=== PATIENT | female | born 1965 | race Caucasian/White ===

== ENCOUNTER 2019-07-10 22:21 | Emergency (ER) | payer BC, SELFPAY ==
--- NOTE | 2019-07-10 22:28 | ED.ABDPAIN ---
HPI - Abdominal Pain General Chief Complaint: Abdominal Pain Stated Complaint: Abdominal pain Time Seen by Provider: 07/10/19 22:28 Source: patient Mode of arrival: ambulatory Limitations: no limitations History of Present Illness HPI narrative: 53-year-old woman comes in today complaining of fairly constant epigastric pain that been present since yesterday. She states that she ate is recently is 2 hours ago and has tried several at asses and even mustard to alleviate her symptoms but nothing seems to alleviate or exacerbate the symptoms. She has had no shortness of breath but states that she sometimes feels sweaty. She has also had loose stools over the last couple of days. MD elicited complaint: abdominal pain Pertinent past history: none Onset (ago): day(s) (1) Pain Consistency: constant Location: epigastric Severity: severe Quality: sharp Radiation: none Migration to: no migration Exacerbating factors: nothing Relieving factors: nothing Associated symptoms: diarrhea Treatments prior to arrival: antacids Related Data Home Medications Medication Instructions Recorded Confirmed citalopram 20 mg PO DAILY 07/10/19 07/10/19 metformin 1,000 mg PO BID 07/10/19 07/10/19 Allergies Allergy/AdvReac Type Severity Reaction Status Date / Time No Known Allergies Allergy Mild Unverified 01/18/08 06:54 Review of Systems Constitutional: Constitutional: Denies chills, Denies fever(s) and Denies weakness Eyes: Eyes: Denies change in vision and Denies photophobia ENT: Denies dysphagia, Denies nasal congestion and Denies sore throat Cardiovascular: Cardiovascular: Denies chest pain, Denies rapid heart rate, Denies radiating jaw, neck or arm pain and Denies slow heart rate Respiratory: Respiratory: Denies cough, Denies dyspnea and Denies wheezing Gastrointestinal: Gastrointestinal: Reports as per HPI, Reports abdominal pain, Denies bloating, Denies constipation, Reports diarrhea, Reports nausea and Denies vomiting Musculoskeletal: Musculoskeletal: Denies myalgias, Denies arthralgias, Denies joint swelling and Denies muscle cramps Integumentary/Breasts: Skin/Breast: Denies pruritus, Denies erythema and Denies rash Neurologic: Denies vertigo, Denies dizziness and Denies syncope Psychiatric: Psychiatric: Denies anxiety and Denies depression Endocrine: Endocrine: Denies polydipsia and Denies polyuria Hematologic/Lymphatic: Hematologic/Lymphatic: Denies easy bleeding and Denies easy bruising Allergic/Immunologic: Allergic/Immunologic: Denies lip swelling and Denies wheezing PMF Past Medical History Medical History Anxiety Surgical History Surgical History History of bladder suspension procedure S/P cholecystectomy Social History Social History Smoking status: Never smoker Alcohol intake: former Substance use: never Other substance usage details: took CBD pills recently to help her sleep Living arrangements: with family Gender identity (if verbalized by the patient): Female Exam Const: General: healthy appearing and alert Orientation/consciousness: patient oriented x3 Limitations: no limitations Other: [id number] acute distress. HENMT: Ears: external ears normal, TM's normal bilaterally and EAC's normal Mouth: Yes Normal oral and palatal mucosa present and Yes moist mucous membranes Throat: posterior oropharynx normal Eyes: Conjunctivae: conjunctivae normal EOM: EOMs intact bilaterally Resp: Effort & Inspection: normal respiratory effort and not labored Auscultation: clear to auscultation bilaterally, no rales, no rhonchi and no wheezes Cardio: Rate: regular rate Rhythm: regular rhythm Heart sounds: no murmurs GI: Inspection: non-distended GI Palp: Yes Soft to palpation, Yes Tenderness to palpation present (GI) ( M
--- NOTE | 2019-07-10 22:39 | ECG_ITS ---
Measurements Intervals [place] Rate: 68 P: 64 WI: 182 QRS: 26 QRSD: 102 T: 39 QT: 411 QTc: 438 Interpretive Statements SINUS RHYTHM VENTRICULAR PREMATURE COMPLEX BORDERLINE ECG Electronically Signed On 07-11-2019 8:15:38 BOX PRINTER by Zachary Ross D.O.
[2019-07-10 22:40] VITALS: BP 137/79; PULSE 75; RESP 18; TEMP 36.7; O2SAT 96
--- NOTE | 2019-07-10 22:47 | PC.NURSE ---
Pt states she is taking Metformin 1000mg BID for weight loss, prescribed by her PMD Dr Pacheco. States has been taking the medication x1 month.
[2019-07-10] MEDS: SODIUM CHLORIDE 0.9% IV 500 ML 999 ML IV CONT (23:07)
[2019-07-10] MEDS: ONDANSETRON INJ 4 MG/2 ML VIAL IV PUSH (23:08)
[2019-07-10] MEDS: PANTOPRAZOLE SODIUM IV 40 MG VIAL IV PUSH (23:08)
[2019-07-10 23:13] LABS: Add Urine Microscopic? NO; Appearance Urine Clear (Clear); Bilirubin Urine Negative (Negative); Blood Urine Negative (Negative); Color Urine Yellow (Yellow); Glucose Urine UA Negative (Negative); Ketones Urine Negative (Negative); Leukocyte Esterase Ur Negative LEU/UL (Negative); Nitrate Urine Negative (Negative); Protein Urine Negative (Negative); Specific Grav Ur 1.015 (1.010-1.020); Urobilinogen Urine 0.2 mg/dL (0.2-1.0); pH Urine 7.5 (5.0-8.0)
[2019-07-10 23:25] LABS: Basophils Absolute Auto 0.03 K/mm3 (0.00-0.10); Basophils Percent Auto 0.3 % (0.0-1.0); Eosinophils Absolute Auto 0.16 K/mm3 (0.02-0.50); Eosinophils Percent Auto 1.9 % (1.0-6.0); Hematocrit 40.9 % (35.0-49.0); Hemoglobin 13.6 g/dL (12.0-15.0); Immature Granulocyte Absolute 0.02 K/mm3 (0.00-0.00); Immature Granulocyte Percent A 0.2 % (0.0-0.0); Lymphocytes Absolute Auto 2.52 K/mm3 (1.10-4.50); Lymphocytes Percent Auto 29.3 % (18.0-42.0); Mean Corpuscular HGB Conc 33.3 g/dL (32.0-36.0); Mean Corpuscular Hemoglobin 29.2 pg (27.0-31.0); Mean Corpuscular Volume 87.8 fL (78.0-102.0); Monocytes Absolute Auto 0.85 K/mm3 (0.10-0.90); Monocytes Percent Auto 9.9 % (2.0-11.0); Neutrophils Percent Auto 58.4 % (50.0-70.0); Partial Thromboplastin Time 25.2 SEC (22.3-31.6); Platelet Count Result 293 K/mm3 (150-420); Prothrombin Time 10.7 Seconds (9.64-11.0); Red Blood Count 4.66 M/mm3 (4.20-5.40); Red Cell Distribution Width 13.9 % (11.6-14.4); White Blood Count 8.6 K/mm3 (4.8-10.8)
[2019-07-10 23:30] LABS: Alanine Aminotransferase 32 U/L (14-59); Albumin Level 3.5 g/dL (3.4-5.0); Alkaline Phosphatase 109 U/L (46-116); Anion Gap 7.5 mmol/L (7-16); Aspartate Amino Transferase 22 U/L (15-37); Bilirubin,Total 0.4 mg/dL (0.00-1.00); Blood Urea Nitrogen 9 mg/dL (7-18); Calcium 8.7 mg/dL (8.5-10.1); Carbon Dioxide 33 mmol/L (21-32); Chloride 103 mmol/L (98-108); Estimated CRCL calculation 88 ml/min; Estimated Glomerular Filt Rate > 60; Glucose 97 mg/dL (70-99); Lipase 147 U/L (73-393); Osmolality Calculated 288 mOsm/kg (285-295); Potassium 3.5 mmol/L (3.5-5.1); Sodium 140 mmol/L (136-145); Total Protein 7.3 g/dL (6.4-8.2)
[2019-07-10 23:32] LABS: Troponin I < 0.02 ng/mL (0.00-0.056)
[2019-07-10 23:38] LABS: Lactic Acid Reflex 0.8 mmol/L (0.4-2.0)
--- NOTE | 2019-07-10 23:46 | PC.NURSE ---
Dr Brown at bedside.
[2019-07-10 23:58] VITALS: BP 117/70; PULSE 75; RESP 20; O2SAT 98
== END 2019-07-11 00:08 | disposition home or self-care (01) ==
PROVIDERS: Emergency Provider Emergency Medicine; PCP Family Medicine
DX: R10.13 Epigastric pain (principal)
CPT/HCPCS: 36415; 80053; 81003; 83605; 83690; 84484; 85025; 85610; 85730; 93005; 96361; 96374; 96375; 99284; A9270; C9113; J2405; J7040

== ENCOUNTER 2019-07-11 10:47 | Outpatient (CLI) | payer BC, SELFPAY ==
--- NOTE | ~2019-07-11 | US_ITS ---
EXAMINATION: US right upper quadrant EXAM DATE: 07/11/2019 11:47 INDICATION: Epigastric pain since Thursday. Cholecystectomy. TECHNIQUE: Multiple grayscale and Doppler images of the abdomen right upper quadrant were obtained (b y a technologist who performed the scan) and subsequently reviewed. Comparison is made to prior exami nation from 03/06/2011. FINDINGS: The pancreatic head and body are normal in appearance. The pancreatic tail is not visualized. The l iver has normal echogenicity and contour. There are no focal liver lesions identified. There is no evidence of intrahepatic biliary duct dilation. Portal venous flow was seen in the hepatopedal, nor mal direction and has normal Doppler waveform. No right-sided hydronephrosis. Common bile duct measures 4 mm, which is normal. The gallbladder fossa demonstrates small tubular st ructure, probably mildly dilated cystic duct remnant without evidence of choledocholithiasis. IMPRESSION: Small cystic tubular structure in gallbladder fossa probably mildly dilated cystic duct r emnant. Reviewed, dictated and finalized at location A. GE OPENER IMPRESSION: Small cystic tubular structure in gallbladder fossa probably mildly dilated cystic duct remnant.
== END 2019-07-11 10:48 | disposition home or self-care (01) ==
LOC: CHSIMG 10:49
PROVIDERS: PCP Family Medicine; Visit Provider Emergency Medicine
DX: R10.13 Epigastric pain (principal)
CPT/HCPCS: 76705

== ENCOUNTER 2021-07-15 15:04 | Outpatient (CLI) | payer BC, SELFPAY ==
--- NOTE | ~2021-07-15 | XR_ITS ---
XR elbow LT min 3V DATE: 07/15/2021 15:33 INDICATION: Posterior left elbow pain for 3 months after fall TECHNIQUE: 5 views COMPARISON: None FINDINGS: No fracture or dislocation or joint effusion. No periosteal reaction or bone destruction. IMPRESSION: No fracture or dislocation or joint effusion Reviewed, dictated and finalized at location A. ERVATION OFFICER
== END 2021-07-15 15:05 | disposition home or self-care (01) ==
PROVIDERS: PCP Family Medicine; Visit Provider Family Medicine
DX: M25.522 Pain in left elbow (principal)
CPT/HCPCS: 73080

== ENCOUNTER 2021-08-30 10:58 | Outpatient (CLI) | payer BC, SELFPAY ==
--- NOTE | ~2021-08-30 | XR_ITS ---
EXAMINATION: XR lumbar spine 2-3V EXAM DATE: 08/30/2021 11:25 INDICATION: Lesion Of Sciatic Nerve, LBP X2.5 weeks Rt Sided. TECHNIQUE: Lumber spine frontal, lateral, lateral L5-S1 projections for interpretation. Comparison is made to prior examination from 02/20/2014. FINDINGS: There is moderate disc disease L5-S1. Mild to moderate disc disease L-1-2 and L2-3, mild a t the L3-L5 levels. There is moderate lumbar facet arthropathy. There is 3 mm retrolisthesis L5 on S1 . The vertebral bodies are otherwise aligned. There are cholecystectomy clips. Sacrum, sacroiliac iesha nts, sacral arcuate lines are intact. IMPRESSION: 1. Moderate lumbar facet arthropathy and L5-S1 disc disease. 2. No acute findings. Reviewed, dictated and finalized at location G.
== END 2021-08-30 10:59 | disposition home or self-care (01) ==
LOC: CHSIMG 11:01
PROVIDERS: PCP Family Medicine; Visit Provider Family Medicine
DX: G57.00 Lesion of sciatic nerve, unspecified lower limb (principal)
CPT/HCPCS: 72100

== ENCOUNTER 2022-04-11 11:15 | Outpatient (CLI) | payer BC, SELFPAY ==
--- NOTE | ~2022-04-11 | XR_ITS ---
XR knee LT 3V 04/11/2022 11:55 Indication: Left knee pain Procedure: 4 views left knee Comparison: 02/20/2014 Findings: No fracture, subluxation or dislocation. There is anatomic alignment. No joint effusion. No significant joint space narrowing. No soft tissue abnormality. No foreign bodies. Impression: 1: No significant bone or joint abnormality. Reviewed, dictated and finalized at location A. Impression: 1: No significant bone or joint abnormality.
--- NOTE | ~2022-04-11 | XR_ITS ---
XR knee RT 3V 04/11/2022 11:55 Indication: Knee pain Procedure: 3 views right knee Comparison: No prior studies for comparison. Findings: No fracture, subluxation or dislocation. There is anatomic alignment. No joint effusion. No significant joint space narrowing. No soft tissue abnormality. No foreign bodies. Impression: 1: No significant bone or joint abnormality. Reviewed, dictated and finalized at location A. Impression: 1: No significant bone or joint abnormality.
[2022-04-11 11:43] LABS: Alanine Aminotransferase 19 U/L (14-59); Albumin Level 3.6 g/dL (3.4-5.0); Alkaline Phosphatase 128 U/L (46-116); Anion Gap 5 mmol/L (8-16); Aspartate Amino Transferase 17 U/L (15-37); Bilirubin,Total 0.6 mg/dL (0.00-1.00); Blood Urea Nitrogen 14 mg/dL (7-18); Calcium 8.7 mg/dL (8.5-10.1); Carbon Dioxide 30 mmol/L (21-32); Chloride 106 mmol/L (98-108); Estimated Glomerular Filt Rate > 60; Glucose 93 mg/dL (70-99); Osmolality Calculated 292 mOsm/kg (285-295); Potassium 3.9 mmol/L (3.5-5.1); Sodium 141 mmol/L (136-145); Total Protein 7.6 g/dL (6.4-8.2)
[2022-04-11 13:38] LABS: Basophils Absolute Auto 0.02 K/mm3 (0.00-0.10); Basophils Percent Auto 0.4 % (0.0-1.0); Eosinophils Absolute Auto 0.11 K/mm3 (0.02-0.50); Eosinophils Percent Auto 1.9 % (1.0-6.0); Hematocrit 42.5 % (35.0-49.0); Hemoglobin 13.8 g/dL (12.0-15.0); Immature Granulocyte Absolute 0.01 K/mm3 (0.00-0.00); Immature Granulocyte Percent A 0.2 % (0.0-0.0); Lymphocytes Absolute Auto 1.91 K/mm3 (1.10-4.50); Lymphocytes Percent Auto 33.6 % (18.0-42.0); Mean Corpuscular HGB Conc 32.5 g/dL (32.0-36.0); Mean Corpuscular Hemoglobin 29.2 pg (27.0-31.0); Mean Corpuscular Volume 89.9 fL (78.0-102.0); Mean Platelet Volume 12.2 fl (9.2-11.8); Monocytes Absolute Auto 0.55 K/mm3 (0.10-0.90); Monocytes Percent Auto 9.7 % (2.0-11.0); Neutrophils Absolute Auto 3.1 K/mm3 (1.7-7.2); Neutrophils Percent Auto 54.2 % (50.0-70.0); Platelet Count Result 266 K/mm3 (150-420); Red Blood Count 4.73 M/mm3 (4.20-5.40); Red Cell Distribution Width 15.6 % (11.6-14.4); White Blood Count 5.7 K/mm3 (4.8-10.8)
== END 2022-04-11 11:16 | disposition home or self-care (01) ==
LOC: CHSLAB 11:17
PROVIDERS: PCP Family Medicine; Visit Provider Family Medicine
DX: R53.83 Other fatigue (principal); K21.9 Gastro-esophageal reflux disease without esophagitis; M25.561 Pain in right knee
CPT/HCPCS: 36415; 73562; 80053; 85025

== ENCOUNTER 2024-03-02 15:11 | Outpatient (CLI) | payer OTHER, SELFPAY ==
[2024-03-02 16:40] LABS: Anion Gap 8 mmol/L (4-12); Blood Urea Nitrogen 11 mg/dL (7-18); Carbon Dioxide 31 mmol/L (21-32); Chloride 100 mmol/L (98-108); Estimated Glomerular Filt Rate > 60; Glucose 102 mg/dL (70-99); Osmolality Calculated 287 mOsm/kg (285-295); Potassium 3.8 mmol/L (3.5-5.1); Sodium 139 mmol/L (136-145)
== END 2024-03-02 15:12 | disposition home or self-care (01) ==
PROVIDERS: PCP Family Medicine; Visit Provider Nurse Practitioner Family
DX: Z20.822 Contact with and (suspected) exposure to COVID-19 (principal)
CPT/HCPCS: 36415; 80048

== ENCOUNTER 2024-07-18 16:38 | Outpatient (CLI) | payer OTHER, SELFPAY ==
--- NOTE | ~2024-07-18 | XR_ITS ---
CHEST RADIOGRAPH, PA AND LATERAL CLINICAL HISTORY: COUGH . COMPARISON: 09/20/2014 TECHNIQUE: PA and lateral views of the chest. FINDINGS The cardiomediastinal silhouette is unremarkable. The lungs are clear. Visualized osseous structures and soft tissues are unremarkable. IMPRESSION: No focal infiltrate or effusion. Reviewed, dictated and finalized at location A. H OPERATOR
--- OUTSIDE RECORDS SUMMARY | 2024-07-18 16:42 | XMS_ITS | Referral Summary ---
Author Organization [facility] Address [address] [place] [address] Care Team Providers Care Insulation Mechanic Name Role Phone Unavailable Primary Care Provider Unavailabl e Source Comments [facility],non-owned Affiliates and Associated Physician Practices is amultiple site organization consisting of ambulatory clinics and hospital sitesin [place], [place], [place] and [place]. This disclosure is being madepursuant to the Care Everywhere program and may not contain all information available regarding this patient. Last updated 18.[facility] Allergies No known active allergies Medications * Be aware that medications may not be up to date on this document. Alwaysverify current medications with the patient. Medication Sig Dispensed Refills Start Date End Date Status meloxicam (MOBIC) 15 MG tablet 08/28/2021 Active oxybutynin CR 24hr (DITROPAN-XL) 10 MG tablet Take 10 mg by mouth once daily 08/20/2021 Active cyclobenzaprine (FLEXERIL) 10 MG tablet Take 1 (one) tablet by mouth 3 times daily 45 tablet 1 11/22/2021 Active butalbital-acetaminop hen-caffeine (FIORICET) 50-325-40 MG tablet Take 1 (one) tablet by mouth every 4 hours as needed for Headache 20 tablet 11/22/2021 Active gabapentin (NEURONTIN) 300 MG capsuleIndications:Darlyn mbar radiculopathy Take 1 (one) capsule by mouth 3 times daily 90 capsule 2 12/30/2021 Active Active Problems Problem Noted Date Diagnosed Date Chronic low back pain, unspe cified back pain laterality, unspecified whether sciatica present 11/20/2021 Social History Tobacco Use Types Packs/Day Years Used Date Smoking Tobacco: Never Smokeless Tobacco: Never Alcohol Use Standard Drinks/Week Comments Yes 2 (1 standard drink = 0.6 oz pur e alcohol) OCC 2-3 times a year AUDIT-C Answer Date Recorded Q1: How often do you have a drink containing alc ohol? 2-4 times a month 11/20/2021 Q2: How many drinks containi ng alcohol do you have on a typical day when you are drinking? 1 or 2 11/20/2021 Q3: How often do you have si x or more drinks on one occasion? Never 11/20/2021 Hunger Vital Sign Answer Date Recorded Within the past 12 months, y ou worried that your food would run out before you got the money to buy more. Never true 11/22/19 Within the past 12 months, t he food you bought just didn't last and you didn't have money to get more. Never true 11/21/2021 Sex and Gender Information Value Date Recorded Sex Assigned at Female 09/26/2021 2:13 PM CDT Gender Identity Female 09/26/2021 2:13 PM CDT Sexual Orientation Straight 11/20/2021 4: 39 PM CDT Last Filed Vital Signs Vital Sign Reading Time Taken Comments Blood Pressure 135/84 01/07/2022 2:19 PM CDT Pulse 90 01/07/2022 2:19 PM CDT Temperature 36.8 C (98.2 F) 01/07/2022 2:19 PM CDT Respiratory Rate 16 11/22/2021 12:06 PM CDT Oxygen Saturation 98% 01/07/2022 2:19 PM CDT Inhaled Oxygen Concentration - - Weight 101.2 kg (223 lb) 01/07/2022 2:19 PM CDT Height 180.3 cm (5' 11 ) 01/07/2022 2:19 PM CDT Body Mass Index 31.1 01/07/2022 2:19 PM CDT Functional Status Functional Status Response Date of Assess ment Is person deaf or have serious hearing difficult y? No 11/20/2021 Is person blind or have serious difficulty seein g? No 11/20/2021 Does person have serious dif ficulty walking/climbing stairs? No 11/20/2021 Does person have difficulty dressing/bathing? No 11/20/2021 Does person have difficulty doing errands alone? No 11/20/2021 Cognitive Status Response Date of Assessm ent Does person have difficulty concentrating/remembering/making decisions? No 11/20/2021 Plan of Treatment Not on file Medical Devices Implanted Type Area Salon Manager Device Identifier Shelf Expiration Date Model / Serial / Lot Slnt Dura Duraseal Pg Trilysine Amine 5 Implanted:Qty: 1 on 11/20/2021 by Alexander Lorenzo MD at [facility] N/A: Spine Lumbar Integra [employer] Leydi 03/07/2023 [id number] / / [id number] Graft Tissue Drgn + Bvn Clgn Mtrx 2x2in Implanted:Qty: 1 on 11/20/2021 by Alexander Lorenzo MD at [facility] N/A: Spine Lumbar Integra [employer] 09/05/2024 [id number] / / [id number] Procedures Procedure Name Priority Date/Time Associated Diagnosis Comments BASIC METABOLIC PANEL (CALCIUM TOTAL) STAT 11/22/2021 7:45 AM CDT from Last 3 Months or Most Recently Relevant to Health Maintenance Results * (ABNORMAL) BASIC METABOLIC PANEL (CALCIUM TOTAL) (11/22/2021 7:45 AM CDT) BUN 7 7 - 26 mg/dL 11/22/2021 8:15 AM [facility] Creatinine 0.60 0.56 - 0.96 mg/dL 11/22/2021 8:15 AM [facility] Sodium 141 136 - 145 mmol/L 11/22/2021 8:15 AM [facility] Potassium 3.5 3.5 - 4.5 mmol/L 11/22/2021 8:15 AM [facility] Chloride 103 98 - 107 mmol/L 11/22/2021 8:15 AM [facility] CO2 30(H) 22 - 29 mmol/L 11/22/2021 8:15 AM [facility] Glucose 99 70 - 115 mg/dL 11/22/2021 8:15 [address] [facility] Calcium 8.7 8.4 - 10.2 mg/dL 11/22/2021 8:15 AM [facility] Anion Gap 12 8 - 18 11/22/2021 8:15 AM [facility] BUN/Creatinine Ratio 12 7 - 23 11/22/2021 8:15 AM [facility] Osmolality Calculated 290 270 - 300 mOsm/kg 11/22/2021 8:15 AM [facility] eGFR by CKD-EPI >90 >=90 mL/min/1.7 3 m2 11/22/2021 8:15 AM [facility] Blood BLOOD SPECIMEN / Unknown Lab Venipuncture / Unknown 11/22/2021 7:45 AM CDT 11/22/2021 7:51 AM CDT Alexander Lorenzo MD LAB - CHEMISTRY MARY TAVERAS [facility] Organization Address City/State/ZIP Co de Phone Number [facility] [address] [place] [address], [facility] [phone] from Last 3 Months or Most Recently Relevant to Health Maintenance Advance Directives * Full Code (Latest Code Status on File) Date Activated Date Inactivated Comments 11/20/2021 4:34 PM 11/22/2021 3:37 PM
--- OUTSIDE RECORDS SUMMARY | 2024-07-18 16:42 | XMS_ITS | Clinical Summary ---
Author Organization [facility] Address [address] [place] [address] Phone Care Team Providers Care Car Wash Attendant Automatic Name Role Phone WILLIAM TOLEDO, GENO Primary Care Provider [phone] J CARLOS LANGSTON MD Unavailable [phone] Reason for Visit and Chief Complaint The Chief Complaint is: Referred by Dr. Geno Thomas Sciatic nerve and back pain Plan of Treatment Risk assessment completed and UDS collected for initial pain management visit to determine opioid candidacy and risk. Urine sample sent for confirmation via LCMS when appropriate. - Last Documented On 10/14/2021 12:03PM ; [facility] Referrals To Diagnosis Pain Management [facility] - [address] [place] [address] - Radiculopathy, lumbar region Note: Needs done this week p rior to surgery if possible.Consent for RightTransforaminal Epidural steroid injection at L3-4 and L4-5 under fluorsocopyNo need to hold NSAIDs/ ASA Last Documented On 3 4:52PM ; [facility] Instructions to patient Intervention and counseling on cessation of tobacco use : Patient recieved smoking cessation handout Last Documented On 2 8:23AM ; [facility] Education and Decision Aids were provided during visit for: Pill Count: 45 Hydrocodone 5 /325 Last Documented On 2 9:19AM ; [facility] Assessments Includes: Assessments from this encounter Findings - [M54.9 - Dorsalgia, unspecified] DORSALGIA - Last Documented On 10/14/2021 12:03PM ; [facility] - [M51.26 - Other intervertebral disc displacement, lumbar region] Bulging lumbar disc - Last Documented On 10/14/2021 12:03PM ; [facility] - [M47.26 - Other spondylosis with radiculopathy, lumbar region] Lumbar spondylosis with radiculopathy - Last Documented On 10/14/2021 12:03PM ; [facility] - [M48.062 - Spinal stenosis, lumbar region with neurogenic claudication] Lumbar canal stenosis with neurogenic claudication - Last Documented On 10/14/2021 12:03PM ; [facility] - [M54.16 - Radiculopathy, lumbar region] Lumbar radiculopathy - Last Documented On 10/14/2021 12:03PM ; [facility] Instructions Includes: Instructions from this encounter Instructions to patient Intervention and counseling on cessation of tobacco use : Patient recieved smoking cessation handout Last Documented On 2 8:23AM ; [facility] Education and Decision Aids were provided during visit for: Pill Count: 45 Hydrocodone 5 /325 Last Documented On 2 9:19AM ; [facility] Medical Equipment - Implanted Devices Includes: Current Devices No Medical Equipment Recorded Medications Includes: Medications discussed during this encounter and other current Medications New / Renewed during this visit MAKAYLA HAMILTON on 10/11/2021 Pregabalin 150 MG Oral Capsule Provider: MAKAYLA LANE 30 day supply: 60 capsule, 0 refills Diagnosis: Radiculopathy, lumbar region 1 CAPSULE TWO TIMES A DAY [facility] [address], [id number] - Last Documented On 2 9:18AM By LUZ BENAVIDES ; [facility] Pregabalin 75 MG Oral Capsule Provider: MAKAYLA LANE 14 day supply: 32 capsule, 0 refills Diagnosis: Radiculopathy, lumbar region 1 tab at HS for 4 days, then 1 two times daily for 4 days, then 1 in am and 2 in pm for 4 days then 2 tabs two times daily Pharmacy: [facility] [address], [id number] - Last Documented On 2 2:13PM By LUZ BENAVIDES ; [facility] Current Medications (continue as prescribed) Pregabalin 75 MG Oral Capsule 11/14/2021 Provider: LUZ DEJESUS APRN- СЕРГЕЙA, NADER-SANDY Diagnosis: Radiculopathy, l umbar region 1 CAPSULE TWO TIMES A DAY Last Documented On 2 2:23PM By LUZ BENAVIDES ; [facility] Phentermine HCl 30 MG Oral Capsule 09/29/2021 Provid er: GENO THOMAS MD Diagnosis: Last Documented On 2 9:15AM By LUZ BENAVIDES ; [facility] Meloxicam 15 MG Oral Tablet 09/27/2021 Provider: Diagnosis: As needed. 1 every 2-3 days. Last Documented On 2 9:15AM By LUZ BENAVIDES ; [facility] Oxybutynin Chloride ER 10 MG Oral Tablet Extended Release 24 Hour 09/27/2021 Provider: GENO THOMAS MD Diagnosis: Last Documented On 2 9:15AM By LUZ BENAVIDES ; [facility] HYDROcodone-Acetaminophen 5- 325 MG Oral Tablet 09/27/2021 Provider: GENO THOMAS MD Diagnosis: 1 tablet by mouth every 4 hours as needed for pa in. Last Documented On 2 9:15AM By LUZ BENAVIDES ; [facility] Medications Administered Includes: Administered Medications from this encounter No Administered Medications Recorded Vital Signs Includes: Vital Signs from this encounter Vital Name 10/11/2021 08:40A Blood Pressure Sitting R 126/82 BP Cuff Size Regular Pulse Rate-Sitting (bpm) 82 Temp-Temporal 97.8 Height (in) 71 Weight (lb) 214 Body Mass Index (kg/m2) 29.8 Body Surface Area (m2) 2.2 Pain Level 7 Oxygen Saturation (%) 99 Last Documented: On 10/11/2021 8:42AM ; [facility] Results Includes: Results discussed during this encounter Drugs of abuse screen [facility] Ordered by LUZ DEJESUS APRN-ISMA, NADER- SANDY on 10/11/2021 Collected: Reported: 10/11/2021 08:47 Last Documented On 2 8:48AM ; [facility] Reviewed on 10/11/2021; All test results are final unless otherwise noted. Lot # & Exp. Date [id number] EXP 2023-02-21 (NEG) N (Normal) Last Documented On 2 8:48AM ; [facility] Amphetamines POS (POS) A (Abnormal) Last Documented On 2 8:48AM ; [facility] Barbiturates NEG (neg) N (Normal) Last Documented On 2 8:48AM ; [facility] Benzodiazepines NEG (neg) N (Normal) Last Documented On 2 8:48AM ; [facility] Cocaine NEG (neg) N (Normal) Last Documented On 2 8:48AM ; [facility] Ecstasy NEG (Neg) N (Normal) Last Documented On 2 8:48AM ; [facility] Methamphetamines NEG (neg) N (Normal) Last Documented On 2 8:48AM ; [facility] Methadone NEG (Neg) N (Normal) Last Documented On 2 8:48AM ; [facility] Morphine NEG (Neg) N (Normal) Last Documented On 2 8:48AM ; [facility] Oxycodone NEG (Neg) N (Normal) Last Documented On 2 8:48AM ; [facility] Phencyclidine NEG (NEG) N (Normal) Last Documented On 2 8:48AM ; [facility] TCA/Tricyclic Antidepressants NEG (neg) N (Normal) Last Documented On 2 8:48AM ; [facility] Cannabis POS (POS) A (Abnormal) Last Documented On 2 8:48AM ; [facility] History of Present Illness Includes: History of Present Illness from this encounter HPI PHQ-9 Score: 7 Date: 10/11/2021 BPI Score: Date: MiDAS Score: Date: SOAPP-R Score: 9 LOW Date:10/11/2021 Pain Location: Lumbar and Right Quality: Aches, sharp, numb, sore. Radiation: Right leg to bottom of foot Severity: Timing: constant Associated Sx: weak, and upset stomach, not able to sleep Aggravating Factors:standing for long period of time, laying down. Alleviating Factors:Vape THC Past Tx:Physical therapy years ago, MARYAM MOLINA is a 55 year old female. - Allergy list reviewed - Problem list reviewed - Medication reconciliation performed - Medication list reviewed - Prescription Drug Monitoring Program website checked. 09/27/2021 - How much of the medication are you taking a day? PRN - Last dose of medication? 4-5 days ago - Pain is continuous - Primary pain location Lower back, right butt cheek down leg to bottom of foot - Primary pain duration 7 weeks. every day all day. never goes away - Pain is throbbing - Pain is dull, aching - Pain is sharp - Pain is described as numbness - Pain is described as tingling - Pain is deep - Pain is cold - Pain is tight - Pain is like pins/needles - Relieved by massage - Relieved by touch/rub - Pain aggravated lying down - Pain aggravated sitting - Pain aggravated standing - Pain aggravated by walking - Pain aggrated by coughing/sneezing - Pain aggravated bending - Groin pain radiating to right side - Pain radiating in the right thigh - Pain radiates in right calf/roberson - Pain radiates in right foot - No vertigo Discussion: Patient presents as a referral from her PCP Dr Thomas For acute onset of low back pain that radiates into the right leg. Her symptoms started about 6 to 7 weeks ago suddenly. She works cleaning houses. No specific injury. Her pain radiates all the way down the back and side of the right leg into the foot. She also has pain into the groin area and anterior thigh when she lays down. She is scheduled to undergo lumbar decompression at L3-4, L4-5, and L5- S1 on November 20 at [facility] (unsure of surgeon's name). She has numbness, tingling, and weakness to the right leg. Denies any bowel or bladder changes. Denies any foot drop or difficulty walking. Her primary care doctor gave her Hydrocodone which she states does not really seem to help at all with the pain. She is unable to work right now. She cannot sleep at night. She states she sits in the recliner a lot in an effort to attempt to get comfortable. She is using a THC vape pen for pain relief. She states this is the only thing that seems to help. It numbs her body and helps her relax. She is taking 600mg Ibuprofen which also does not seem to help. Standing, walking, or lying down makes the pain worse. Imaging: All relevant imaging available was personally reviewed with the patient today with the following tests and results noted: MRI Lumbar Spine 09/16/2021 Impression: Moderate lumbar disc degeneration and facet arthropathy. Acquired spinal canal, lateral recess and foraminal stenosis, as detailed above. This is most significant at L3-4. Ligamentous thickening L2-1 Social History Description Last Updated Tobacco non-user 10/11/2021 Last Documented On 2 12:03PM ; [facility] Difficulty walking 10/11/2021 Last Documented On 2 12:03PM ; [facility] Drug use 10/11/2021 Last Documented On 2 12:03PM ; [facility] No consumption of alcohol 10/11/2021 Last Documented On 2 12:03PM ; [facility] Type: Marijuana 10/11/2021 Last Documented On 2 12:03PM ; [facility] Smoking Status Unknown Procedures and Surgical History Includes: Procedures from this encounter Procedures Code Diagnosis Performing Provider Service L ocation Service Date intervention and counseling on cessation of tobacco use : Patient recieved smoking cessation handout 4000F Last Documented On 2 8:23AM ; [facility] use of tobacco assessment performed 1000F Last Documented On 2 8:37AM ; [facility] patient screened for future fall risk: documentation of any fall with injury in past year 1100F Last Documented On 2 8:23AM ; [facility] review of medications documented 1160F Last Documented On 2 8:23AM ; [facility] screening for adult depression: impressi on and score seven Last Documented On 2 8:23AM ; [facility] standardized depression screening: posit isidro for symptoms Last Documented On 2 8:23AM ; [facility] Clinical summary provided to patient Last Documented On 2 8:22AM ; [facility] SOAPP-R: total score 9 Last Documented On 2 8:22AM ; [facility] Surgical History Last Updated No Pacemaker 10/11/2021 Last Documented On 2 12:03PM ; [facility] Medical History Includes: Medical History addressed during this encounter Description Last Updated Denies a fear of falling. 10/11/2021 Last Documented On 2 12:03PM ; [facility] Has had a fall in the last 12 months. Last Documented On 2 12:03PM ; [facility] CT/MRI September 2021lower back butt 022 Last Documented On 2 12:03PM ; [facility] Moderate to severe pain 10/11/2021 Last Documented On 2 12:03PM ; [facility] No Pain Pump 10/11/2021 Last Documented On 2 12:03PM ; [facility] No Spinal cord stimulator 10/11/2021 Last Documented On 2 12:03PM ; [facility] Please list all illnesses/co nditions you have been diagnosed with: Stenosis of the spine bulging discs 10/11/2021 Last Documented On 2 12:03PM ; [facility] Please list all surgeries: B ladder tie 2005right foot- plantarfacitistubel 1994gallbladder removed 200710/11/2021 Last Documented On 2 12:03PM ; [facility] Uses a cane for support 10/11/2021 Last Documented On 2 12:03PM ; [facility] X-rays September 2021 lower back butt 2021 Last Documented On 2 12:03PM ; [facility] Family History Includes: Family History addressed during this encounter No Family History Recorded Review of Systems Includes: Review of Systems from this encounter Systemic: No systemic symptoms other then noted and no recent weight loss. Head: No head symptoms other then noted. Neck: No neck pain. Otolaryngeal: No otolaryngeal symptoms other than noted. Cardiovascular: No cardiovascular symptoms other than noted. Cold hands or feet. Pulmonary: No pulmonary symptoms other than noted. Gastrointestinal: No difficulty chewing and no dysphagia. Genitourinary: No genitourinary symptoms other than noted. Endocrine: No endocrine symptoms other than noted. Muscle weakness and Weakness. Hematologic: No easy bleeding and no tendency for easy bruising. Musculoskeletal: No musculoskeletal symptoms other than noted. Back pain and muscle aches. Neurological: No neurological symptoms other than noted and no fainting passing out with needles or medical procedures. Numbness. Psychological: No sleep apnea. Skin: No skin symptoms other than noted. Mental Status Includes: Mental Status from this encounter No Mental Status Recorded Functional Status Includes: Functional Status from this encounter No Functional Status Recorded Physical Exam Includes: Physical Exam from this encounter Encounters Encounter Provider Location Date Check-In Time Check-Out Time Diagnosis PAIN MANAGEMENT NEW CONSULT LUZ DEJESUS BISTRO ATTENDANT-FPA, TAX ADJUSTER-BC [facility] 022 8:21AM 9:06AM Lumbar Radiculopathy,Bul ging Intervertebral Disc Lumbar,Spinal Stenosis Lumbar with Neurogenic Claudication,Spon dylosis with Radiculopathy Lumbar Region,Dorsalgia Insurance Includes: Active Insurance Policies Plan Name Member ID Group # Subscriber Relationship Effect isidro Dates 1 - [facility] [id number] MARYAM MOLINA Self Clinical Notes Includes: Clinical Notes from this encounter No Clinical Notes Recorded
--- OUTSIDE RECORDS SUMMARY | 2024-07-18 16:42 | XMS_ITS | Referral Summary ---
Author Organization [facility] [address] Address [address] [place] [address] Phone Care Team Providers Care Associate Juvenile Court Judge Name Role Phone Familia Pacheco MD Primary Care Provide r Encounters Date Type Department Care Team Description 04/27/2024 Telephone [facility] [address] [place] [address] Chani Shen MD Medication Request from Last 3 Months Allergies No known active allergies Medications estradioL (ESTRACE) 0.01 % (0.1 mg/gram) vaginal cream Apply nightly to vagina for 2 weeks then decrease to 2 times weekly 30 g 3 2 Active escitalopram (LEXAPRO) 10 mg tablet Take 1 tablet (10 mg total) by mouth daily 3 Active phentermine 30 mg capsule Take 1 capsule (30 mg total) by mouth every morning 3 Active topiramate (TOPAMAX) 25 mg tablet Take 1 tablet (25 mg total) by mouth 2 (two) times a day Active oxyBUTYnin XL (DITROPAN XL) 15 mg 24 hr tabletIndications :Urge incontinence of urine Take 1 tablet (15 mg total) by mouth daily 30 tablet 11 4 04/27/20 25 Active Active Problems Problem Noted Date Diagnosed Date Obesity (BMI 30-39.9) 06/26/2017 Urge incontinence of urine 07/13/2014 Overview (09/11/2016): Urge incontinence Abnormal mammogram 01/17/2009 Social History Tobacco Use Types Packs/Day Years Used Date Smoking Tobacco: Never Smokeless Tobacco: Never Tobacco Cessation:Counseling Given: Not Answered Alcohol Use Standard Drinks/Week Comments Yes 0 (1 standard drink = 0.6 oz pur e alcohol) Personal Safety Answer Date Recorded Getting School Help Needed Not on file 08/20 Comments No Sex and Gender Information Value Date Recorded Sex Assigned at Not on file Legal Sex Female 9:15 AM TOE POUNDER Gender Identity Not on file Sexual Orientation Not on file Last Filed Vital Signs Vital Sign Reading Time Taken Comments Blood Pressure 112/80 04/08/2024 1:57 PM CDT Pulse 79 08/02/2021 2:21 PM TOE POUNDER Temperature 36.3 C (97.3 F) 10/08/2020 9:51 AM CDT Respiratory Rate - - Oxygen Saturation - - Inhaled Oxygen Concentration - - Weight 99.8 kg (220 lb) 04/08/2024 1:57 PM CDT Height 175.3 cm (5' 9 ) 04/08/2024 1:57 PM CDT Body Mass Index 32.49 04/08/2024 1:57 PM CDT Plan of Treatment Not on file Procedures Procedure Name Priority Date/Time Associated Diagnosis Comments HIGH RISK HPV DNA DETECTION WITH GENOTYPING Routine 04/08/2024 3:12 PM CDT Screening for malignant neoplasm of the cervix SCREENING MAMMOGRAM BILATERAL W KWAN Schedule Routine, Read Routine (OP Routine) 04/08/2024 2:40 PM CDT Encounter for screening mammogram for malignant neoplasm of breast from Last 3 Months or Most Recently Relevant to Health Maintenance Results * High Risk HPV DNA Detection with Genotyping (Molecular component) (04/08/2024 3:12 PM CDT) HPV HR [address] [facility] Comment:Testing performed by : [facility], [address] [facility] [place]., [address] HPV HR 18 Not Detected Not Detected [facility] Comment:Testing performed by : [facility], [address] [place]., [address] HPV HR Non 16/18 Not Detected Not Detected [facility] Comment: Interpretive Data Nucleic acid amplification for detection of high-risk Human Papilloma virus (HPV) is performed by the Elsie Esperanza 6800 HPV test. This assay specifically detects HPV-16 and HPV-18 genotypes. The following HPV genotypes are detected as high-risk HPV: HPV-31, 33, 35, ,39, 45, 51, 52, 56, 58, 59, 66, and 68. This assay has been approved by the [place] Food and Drug Administration for detection of HPV in cervical specimens collected by a physician using an endocervical brush/spatula or cervical broom and placed in the ThinPrep Pap Test PreservCyt collection containers. The performance characteristics of this test have been verified by the [facility] Molecular Infectious Disease laboratory. Correlate with separately reported cytology results, as applicable. Interpretive data last revised 22 Testing performed by: [facility], [address] [place]., [address] Endocervical 04/08/2024 3:12 PM CDT 04/11/2024 2:01 PM TOE POUNDER Narrative MAIRA ESPARZA - 04/12/2024 5:06 AM TOE POUNDER Clinical history and diagnosis->DX Z12.4 Testing type->Screening Last menstrual period (date if known)->N/A Menstrual status->Postmenopausal Previous negative PAP?->Yes Chani Shen MD LAB BODY FLUIDS AND S TOOLS ORDERABLES Final Result [facility] EPSARZA [id number] Department [place] [address] [facility] * Screening Mammogram Bilateral W Kwan (04/08/2024 2:40 PM CDT) Anatomical Region Laterality Modality Breast Bilateral Mammography 04/08/2024 3:32 PM CDT Impressions 04/08/2024 3:32 PM CDT There is no mammographic evidence of malignancy. A 1 year screening mammogram is recommended. BI-RADS: 1 - Negative. The patient has been or will be contacted. The patient will be entered into a reminder system with a target due date of 1 year for her next mammogram. Electronically signed by: Angelica Vuong M.D. Narrative 04/08/2024 3:32 PM CDT EXAMINATION: SCREENING MAMMOGRAM BILATERAL W KWAN ORDERING HEALTHCARE PROVIDER: CHANI SHEN HISTORY: Routine screening mammography. COMPARISON: 04/03/2023, 03/24/2022, 08/08/2020 TECHNIQUE: CC and MLO views of the bilateral breasts were obtained with digital technique using breast tomosynthesis with C view. Computer aided detection was utilized. FINDINGS: DENSITY: The breasts are almost entirely fatty. BREASTS: There are no suspicious masses, suspicious calcifications, or other suspicious findings in either breast. There has been no suspicious interval change. Chani Shen MD IMG MAMMO PROCEDURES Final Result from Last 3 Months or Most Recently Relevant to Health Maintenance Insurance [employer] [facility] [place] [id number] Care Teams [address] Juvenile Court Judge Relationship Specialty Start Date End Date Familia Pacheco MD [address] [place] [address] PCP - General Family Medicine 06/26/17
--- OUTSIDE RECORDS SUMMARY | 2024-07-18 16:42 | XMS_ITS | Clinical Summary ---
Author Organization [facility] Address [address] [place] [id number] Phone Care Team Providers Care Irs Agent Name Role Phone WILLIAM TOLEDO, GENO Primary Care Provider [phone] J CARLOS LANGSTON MD Unavailable [phone] Reason for Visit and Chief Complaint POST PROCEDURE PHONE CALL Plan of Treatment No Plan of Treatment Recorded Assessments Includes: Assessments from this encounter No Assessments Recorded Medical Equipment - Implanted Devices Includes: Current Devices No Medical Equipment Recorded Medications Includes: Medications discussed during this encounter and other current Medications Current Medications (continue as prescribed) Pregabalin 75 MG Oral Capsule 11/14/2021 Provider: MAKAYLA LANE Diagnosis: Radiculopathy, l umbar region 1 CAPSULE TWO TIMES A DAY Last Documented On 2 2:23PM By LUZ BENAVIDES ; [facility] Pregabalin 150 MG Oral Capsule 10/11/2021 Provider: MAKAYLA LANE Diagnosis: Radiculopathy, l umbar region 1 CAPSULE TWO TIMES A DAY Last Documented On 2 9:18AM By LUZ BENAVIDES ; [facility] Phentermine HCl 30 MG Oral Capsule 09/29/2021 Provid er: GENO THOMAS MD Diagnosis: Last Documented On 2 9:15AM By LUZ BENAVIDES ; [facility] Meloxicam 15 MG Oral Tablet 09/27/2021 Provider: Diagnosis: As needed. 1 every 2-3 days. Last Documented On 2 9:15AM By LUZ BENAVIDES ; [facility] Oxybutynin Chloride ER 10 MG Oral Tablet Extended Release 24 Hour 09/27/2021 Provider: GENO THOMAS MD Diagnosis: Last Documented On 2 9:15AM By LUZ BENAVIDES ; [facility] HYDROcodone-Acetaminophen 5- 325 MG Oral Tablet 09/27/2021 Provider: GENO THOMAS MD Diagnosis: 1 tablet by mouth every 4 hours as needed for pa in. Last Documented On 2 9:15AM By LUZ BENAVIDES ; [facility] Medications Administered Includes: Administered Medications from this encounter No Administered Medications Recorded Results Includes: Results discussed during this encounter No Results Recorded For Specified Dates History of Present Illness Includes: History of Present Illness from this encounter No History of Present Illness Recorded Social History Description Last Updated Tobacco non-user 10/11/2021 Last Documented On 2 1:37PM ; [facility] Difficulty walking 10/11/2021 Last Documented On 2 1:37PM ; [facility] Drug use 10/11/2021 Last Documented On 2 1:37PM ; [facility] No consumption of alcohol 10/11/2021 Last Documented On 2 1:37PM ; [facility] Type: Marijuana 10/11/2021 Last Documented On 2 1:37PM ; [facility] Smoking Status Unknown Procedures and Surgical History Surgical History Last Updated No Pacemaker 10/11/2021 Last Documented On 2 1:37PM ; [facility] Medical History Includes: Medical History addressed during this encounter Description Last Updated Denies a fear of falling. 10/11/2021 Last Documented On 2 1:37PM ; [facility] Has had a fall in the last 12 months. Last Documented On 2 1:37PM ; [facility] CT/MRI September 2021lower back butt Last Documented On 2 1:37PM ; [facility] Moderate to severe pain 10/11/2021 Last Documented On 2 1:37PM ; [facility] No Pain Pump 10/11/2021 Last Documented On 2 1:37PM ; [facility] No Spinal cord stimulator 10/11/2021 Last Documented On 2 1:37PM ; [facility] Please list all illnesses/co nditions you have been diagnosed with: Stenosis of the spine bulging discs 10/11/2021 Last Documented On 2 1:37PM ; [facility] Please list all surgeries: B ladder tie 2005right foot- plantarfacitistubel 1994gallbladder removed 200710/11/2021 Last Documented On 2 1:37PM ; [facility] Uses a cane for support 10/11/2021 Last Documented On 2 1:37PM ; [facility] X-rays September 2021 lower back butt 2021 Last Documented On 2 1:37PM ; [facility] Family History Includes: Family History addressed during this encounter No Family History Recorded Review of Systems Includes: Review of Systems from this encounter No Review of Systems Recorded Mental Status Includes: Mental Status from this encounter No Mental Status Recorded Functional Status Includes: Functional Status from this encounter No Functional Status Recorded Physical Exam Includes: Physical Exam from this encounter No Physical Exam Recorded Encounters Encounter Provider Location Date Check-In Time Check-Out Time Diagnosis POST PROCEDURE PHONE CALL J CARLOS LANGSTON MD 10/28/2021 1:37PM 11:59PM Insurance Includes: Active Insurance Policies Plan Name Member ID Group # Subscriber Relationship Effect isidro Dates 1 - [facility] [id number] MARYAM MOLINA Self Clinical Notes Includes: Clinical Notes from this encounter No Clinical Notes Recorded
--- OUTSIDE RECORDS SUMMARY | 2024-07-18 16:42 | XMS_ITS ---
Author Organization [facility] Address [address] [place] [address] Phone Care Team Providers Care Security Developer Name Role Phone WILLIAM TOLEDO, GENO Primary Care Provider [phone] IVIS TOLEDO, J CARLOS Spaulding Unavailable [phone] Plan of Treatment Referrals To Diagnosis Pain Management [facility] - [address] [place] [id number] - Radiculopathy, lumbar region Note: Needs done this week p rior to surgery if possible.Consent for RightTransforaminal Epidural steroid injection at L3-4 and L4-5 under fluorsocopyNo need to hold NSAIDs/ ASA Last Documented On 3 4:52PM ; [facility] Instructions to patient Intervention and counseling on cessation of tobacco use : Patient recieved smoking cessation handout Last Documented On 2 8:23AM ; [facility] Education and Decision Aids were provided during visit for: Pill Count: 45 Hydrocodone 5 /325 Last Documented On 2 9:19AM ; [facility] Assessments Includes: Assessments for all patient encounters Findings Encounter Date Bulging lumbar disc PAIN MANAGEMENT NEW CONSULT with MAKAYLA HAMILTON 10/11/2021 Last Documented On 2 12:03PM ; [facility] DORSALGIA PAIN MANAGEMENT NEW CONSULT with MAKAYLA HAMILTON 10/11/2021 Last Documented On 2 12:03PM ; [facility] Lumbar canal stenosis with n eurogenic claudication PAIN MANAGEMENT NEW CONSULT with NAEDR HAMILTON-SANDY 10/11/2021 Last Documented On 2 12:03PM ; [facility] Lumbar radiculopathy PAIN MANAGEMENT NEW CONSULT with NADER HAMILTON-BC 10/11/2021 Last Documented On 2 12:03PM ; [facility] Lumbar spondylosis with radiculopathy PA IN MANAGEMENT NEW CONSULT with NADER HAMILTON-BC 10/11/2021 Last Documented On 2 12:03PM ; [facility] Instructions Includes: Instructions for all patient encounters Instructions to patient Intervention and counseling on cessation of tobacco use : Patient recieved smoking cessation handout Last Documented On 2 8:23AM ; [facility] Education and Decision Aids were provided during visit for: Pill Count: 45 Hydrocodone 5 /325 Last Documented On 2 9:19AM ; [facility] Medical Equipment - Implanted Devices Includes: Current and historical Devices No Medical Equipment Recorded Medications Includes: Current and historical Medications Current Medications (continue as prescribed) Pregabalin 75 MG Oral Capsule 11/14/2021 Provider: MAKAYLA LANE Diagnosis: Radiculopathy, l umbar region 1 CAPSULE TWO TIMES A DAY Last Documented On 2 2:23PM By LUZ BENAVIDES ; [facility] Pregabalin 150 MG Oral Capsule 10/11/2021 Provider: MAKAYLA LANE Diagnosis: Radiculopathy, l umbar region 1 CAPSULE TWO TIMES A DAY Last Documented On 2 9:18AM By LUZ BENAVIDES ; [facility] Phentermine HCl 30 MG Oral Capsule 09/29/2021 Provid er: GENO THOMAS MD Diagnosis: Last Documented On 2 9:15AM By LUZ BENAVIDES ; [facility] Meloxicam 15 MG Oral Tablet 09/27/2021 Provider: Diagnosis: As needed. 1 every 2-3 days. Last Documented On 2 9:15AM By LUZ DOE-SANDY ; [facility] Oxybutynin Chloride ER 10 MG Oral Tablet Extended Release 24 Hour 09/27/2021 Provider: GENO THOMAS MD Diagnosis: Last Documented On 2 9:15AM By LUZ DOE-SANDY ; [facility] HYDROcodone-Acetaminophen 5- 325 MG Oral Tablet 09/27/2021 Provider: GENO THOMAS MD Diagnosis: 1 tablet by mouth every 4 hours as needed for pa in. Last Documented On 2 9:15AM By LUZ DOE-SANDY ; [facility] Past Medications on file Pregabalin 75 MG Oral Capsule 10/11/2021 - 11/14/2021 Provider: LUZ DEJESUS APRN-СЕРГЕЙA, NADER-BC Diagnosis: Radiculopathy, l umbar region 1 tab at HS for 4 days, then 1 two times daily for 4 days, then 1 in am and 2 in pm for 4 days then 2 tabs two times daily Last Documented On 2 2:13PM By LUZ DOE-SANDY ; [facility] Medications Administered Includes: Administered Medications in patient's chart No Administered Medications Recorded Results Includes: Results from 07/18/2023 through 07/18/2024 No Results Recorded For Specified Dates History of Present Illness History of Present Illness not supported for this document type No History of Present Illness Recorded Social History Description Last Updated Tobacco non-user 10/11/2021 Last Documented On 2 12:03PM ; [facility] Difficulty walking 10/11/2021 Last Documented On 2 12:03PM ; [facility] Drug use 10/11/2021 Last Documented On 2 12:03PM ; [facility] No consumption of alcohol 10/11/2021 Last Documented On 2 12:03PM ; [facility] Type: Marijuana 10/11/2021 Last Documented On 2 12:03PM ; [facility] Smoking Status Unknown Procedures and Surgical History Surgical History Last Updated No Pacemaker 10/11/2021 Last Documented On 2 12:03PM ; [facility] Medical History Includes: Medical History in patient's chart Description Last Updated Denies a fear of falling. 10/11/2021 Last Documented On 2 12:03PM ; [facility] Has had a fall in the last 12 months. Last Documented On 2 12:03PM ; [facility] CT/MRI September 2021lower back butt 022 Last Documented On 2 12:03PM ; [facility] Moderate to severe pain 10/11/2021 Last Documented On 2 12:03PM ; [facility] No Pain Pump 10/11/2021 Last Documented On 2 12:03PM ; [facility] No Spinal cord stimulator 10/11/2021 Last Documented On 2 12:03PM ; [facility] Please list all illnesses/co nditions you have been diagnosed with: Stenosis of the spine bulging discs 10/11/2021 Last Documented On 2 12:03PM ; [facility] Please list all surgeries: B ladder tie 2005right foot- plantarfacitistubel 1994gallbladder removed 200710/11/2021 Last Documented On 2 12:03PM ; [facility] Uses a cane for support 10/11/2021 Last Documented On 2 12:03PM ; [facility] X-rays September 2021 lower back butt 2021 Last Documented On 2 12:03PM ; [facility] Family History Includes: Family History in patient's chart No Family History Recorded Review of Systems Review of Systems not supported for this document type No Review of Systems Recorded Mental Status No Mental Status Recorded Functional Status No Functional Status Recorded Physical Exam Physical Exam not supported for this document type No Physical Exam Recorded Insurance Includes: Active Insurance Policies Plan Name Member ID Group # Subscriber Relationship Effect isidro Dates 1 - [facility] [id number] MARYAM MOLINA Self Clinical Notes Includes: Signed Clinical Notes starting from 06/27/2022 No Clinical Notes Recorded
--- OUTSIDE RECORDS SUMMARY | 2024-07-18 16:42 | XMS_ITS ---
Care Plan - [facility] Created on: July 18, 2024 MARIAN MOLINAY Osmin : 1965 Sex: Female Author Organization [facility] Address [address] [place] [phone] Phone Care Team Providers Care Production Trainer Name Role Phone WILLIAM TOLEDO, GENO Primary Care Provider [phone] IVIS TOLEDO, J CARLOS Menard [phone]
--- OUTSIDE RECORDS SUMMARY | 2024-07-18 16:42 | XMS_ITS | Clinical Summary ---
Author Organization [facility] Address [facility] [place] [address] Care Team Providers Care Custom Furrier Name Role Phone Familia Pacheco MD Primary Care Provider [phone] Cory Kenyon MD Unavailable Katerin Millard [employer]LEY WIRE INSTALLER-BC Unavailable [phone] Allergies No known active allergies Medications escitalopram (LEXAPRO) 10 MG tablet Take 1 tablet (10 mg total) by mouth daily. 12/19/19 23 Active oxybutynin XL (DITROPAN XL) 15 MG 24 hr tablet Take 1 tablet (15 mg total) by mouth daily. Active topiramate (TOPAMAX) 25 MG tablet Take 1 tablet (25 mg total) by mouth 2 (two) times daily. Active hydrOXYzine (VISTARIL) 25 MG capsule Take 1 capsule (25 mg total) by mouth daily. 01/24/20 23 Active COMPRESSION STOCKINGSIndicati ons:Varicose veins of bilateral lower extremities with other complications 20-30 MMHg Compression Stocking Knee High open or closed toe Dx I83.893 1 Container 6 02/18/20 23 Active meloxicam (MOBIC) 15 MG tabletIndications :Degenerative tear of lateral meniscus of left knee Take 1 tablet (15 mg total) by mouth daily. 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 Class 1 obesity due to exces s calories without serious comorbidity with body mass index (BMI) of 33.0 to 33.9 in adult 02/17/2023 Bilateral knee pain 01/23/2023 Patellofemoral syndrome of left knee 01/15/2023 Lymphedema of both lower extremities 01/15/2023 Primary osteoarthritis of right knee 01/06/2023 Degenerative tear of lateral meniscus 01/06/2023 Family History Medical History Relation Comments No Known Problems Father No Known Problems Mother Relation Status Comments Father Maternal Grandfather Maternal Grandmother Mother Paternal Grandfather Paternal Grandmother Social History Tobacco Use Types Packs/Day Years Used Date Smoking Tobacco: Never Smokeless Tobacco: Never Tobacco Cessation:Counseling Given: Not Answered Alcohol Use Standard Drinks/Week Comments Yes 0 (1 standard drink = 0.6 oz pur e alcohol) rare Comments Unknown Sex and Gender Information Value Date Recorded Sex Assigned at Not on file Legal Sex Female 5:51 PM ROLL WINDER Gender Identity Not on file Sexual Orientation Not on file Last Filed Vital Signs Vital Sign Reading Time Taken Comments Blood Pressure 120/72 02/17/2023 10:37 AM CDT Pulse 70 02/17/2023 10:36 AM CDT Temperature - - Respiratory Rate 16 02/17/2023 10:36 AM CDT Oxygen Saturation 100% 02/17/2023 10:36 AM CDT Inhaled Oxygen Concentration - - Weight 104.8 kg (231 lb) 03/15/2024 10:03 AM CDT Height 177.8 cm (5' 10 ) 03/15/2024 10:03 AM CDT Body Mass Index 33.15 03/15/2024 10:03 AM CDT Plan of Treatment Health Maintenance Due Date Last Done Comments Cervical Cancer Screening Pap Smear (Age 30 to 64) Every 3 Years 1966 Colorectal Cancer Screening Colonoscopy (10 Years) 1966 Annual Physical 1969 Hepatitis C 1984 Hepatitis B Vaccines (1 of 3 - 19+ 3-dose series) 1985 Cervical Cancer Screening Pap with HPV Testing (Age 30 to 64) Every 5 Years 1996 Cervical Cancer Screening with HPV 1996 Zoster Vaccines (1 of 2) 2016 COVID-19 Vaccine ( season) 2024 04/27/2021, 03/23/2021 Influenza Adult (#1) 2024 03/24/2018 Mammogram Screening 04/03/2025 04/03/2023, 03/24/2022, 08/08/2020, Additional history exists DTaP, Tdap and Td Vaccines (2 - Td or Tdap) 10/10/2025 10/11/2015 Meningococcal B Vaccine Aged Out No l onger eligible based on patient's age to complete this topic Meningococcal Vaccine Aged Out No inge topher eligible based on patient's age to complete this topic Pneumococcal Vaccine: Pediatrics (0 to 5 Years) and At-Risk Patients (6 to 64 Years) Aged Out No longer eligible based on patient's age to complete this topic RSV Immunizations Under 20 Months Aged Out No longer eligible based on patient's age to complete this topic Insurance [facility] Care Teams Custom Furrier Relationship Specialty Start Date End Date Familia Pacheco MD [address] [place] [address] PCP - General FAMILY PRACTICE 12/22/22 Cory Kenyon MD [address] [place] [address] Consulting Physician INTERNAL MEDICINE 01/14/23 Katerin Millard, [employer] WIRE INSTALLER- [address] [place] [address] [place] [address] ORTHOPAEDICS 01/14/23
--- OUTSIDE RECORDS SUMMARY | 2024-07-18 16:42 | XMS_ITS | Clinical Summary ---
Author Organization [facility] [employer] Address [address] [place] [address] Care Team Providers Care Collet Gluer Name Role Phone Unavailable Primary Care Provider Unavailabl e Source Comments [facility],non-owned Affiliates and Associated Physician Practices is amultiple site organization consisting of ambulatory clinics and hospital sitesin [place], [place], [place]. This disclosure is being madepursuant to the Care Everywhere program and may not contain all information available regarding this patient. Last updated 18.[facility] [employer] Allergies No known active allergies Medications * [...] Mass Index 31.1 01/07/2022 2:19 PM CDT Plan of Treatment Health Maintenance Due Date Last Done Comments COLOGUARD (AGES 45-75) - COL ON CA SCREENING 1966 COLON MONITORING 1966 COLONOSCOPY - COLON CA SCREENING 1966 CT COLONOGRAPHY - COLON CA SCREENING 1966 Colorectal Cancer Screening 1966 FIT - COLON CA SCREENING 1966 FLEX SIG - COLON CA SCREENING 1966 LIPID TESTING 1966 MAMMOGRAM 1966 PAP SMEAR 1966 HIV SCREENING 1981 HEPATITIS C SCREENING 12/02/1984 DTAP/TDAP/TD VACCINES (1 - Tdap) 1985 HEPATITIS B VACCINE (1 of 3 - 19+ 3-dose series) 1985 PNEUMOCOCCAL VACCINE 50+ (1 of 1 - PCV) 2016 ZOSTER VACCINE (1 of 2) 2016 COVID-19 VACCINE (1 - 2023-2 5 season) 2024 INFLUENZA VACCINE (#1) 2024 DEPRESSION SCREENING 06/08/2024 SCREENING FOR DIABETES 11/22/2024 2, 11/13/2021 HIB VACCINE Aged Out No longer eligi ble based on patient's age to complete this topic HPV VACCINE Aged Out No longer eligi ble based on patient's age to complete this topic MENINGOCOCCAL (Group B) VACCINE Aged Out No longer eligible b ased on patient's age to complete this topic MENINGOCOCCAL VACCINE Aged Out No inge topher eligible based on patient's age to complete this topic PNEUMOCOCCAL VACCINE Aged Out No long er eligible based on patient's age to complete this topic Medical Devices Implanted Type Area Breaker Up Machine Operator Device Identifier Shelf Expiration Date Model / Serial / Lot Slnt Dura Duraseal Pg Trilysine Amine 5 Implanted:Qty: 1 on 11/20/2021 by Alexander Lorenzo MD at [facility] N/A: Spine Lumbar Integra [employer] Leydi 03/07/2023 [id number] / / [id number] Graft Tissue Drgn + Bvn Clgn Mtrx 2x2in Implanted:Qty: 1 on 11/20/2021 by Alexander Lorenzo MD at [facility] N/A: Spine Lumbar Integra [employer] 09/05/2024 [id number] / / [id number] Procedures Procedure Name Priority Date/Time Associated Diagnosis Comments BASIC METABOLIC PANEL (CALCIUM TOTAL) STAT 11/22/2021 7:45 AM CDT from Last 3 Months or Most Recently Relevant to Health Maintenance Results * (ABNORMAL) BASIC METABOLIC PANEL (CALCIUM TOTAL) (11/22/2021 7:45 AM CDT) BUN 7 7 - 26 mg/dL 11/22/2021 8:15 AM [facility] Creatinine 0.60 0.56 - 0.96 mg/dL 11/22/2021 8:15 AM [facility] Sodium 141 136 - 145 mmol/L 11/22/2021 8:15 AM [facility] Potassium 3.5 3.5 - 4.5 mmol/L 11/22/2021 8:15 AM [facility] Chloride 103 98 - 107 mmol/L 11/22/2021 8:15 AM [facility] CO2 30(H) 22 - 29 mmol/L 11/22/2021 8:15 AM [facility] Glucose 99 70 - 115 mg/dL 11/22/2021 8:15 AM [facility] Calcium 8.7 8.4 - 10.2 mg/dL 11/22/2021 8:15 AM [facility] Anion Gap 12 8 - 18 11/22/2021 8:15 AM [facility] BUN/Creatinine Ratio 12 7 - 23 11/22/2021 8:15 AM [facility] Osmolality Calculated 290 270 - 300 mOsm/kg 11/22/2021 8:15 AM [facility] eGFR by CKD-EPI >90 >=90 mL/min/1.7 3 m2 11/22/2021 8:15 AM [facility] Blood BLOOD SPECIMEN / Unknown Lab Venipuncture / Unknown 11/22/2021 7:45 AM CDT 11/22/2021 7:51 AM T Alexander Lorenzo MD LAB - CHEMISTRY MARY TAVERAS [facility] Organization Address City/State/ZIP Co de Phone Number [facility] [address] [place] [address], [facility] [phone] from Last 3 Months or Most Recently Relevant to Health Maintenance Advance Directives * Full Code (Latest Code Status on File) Date Activated Date Inactivated Comments 11/20/2021 4:34 PM 11/22/2021 3:37 PM
--- OUTSIDE RECORDS SUMMARY | 2024-07-18 16:42 | XMS_ITS | Clinical Summary ---
Author Organization [facility] Address [address] [place] [phone] Phone Care Team Providers Care Acoustical Tile Carpenters Supervisor Name Role Phone WILLIAM TOLEDO, GENO Primary Care Provider [phone] J CARLOS LANGSTON MD Unavailable [phone] Reason for Visit and Chief Complaint * PHONE CALL Plan of Treatment No Plan of Treatment Recorded Assessments Includes: Assessments from this encounter No Assessments Recorded Medical Equipment - Implanted Devices Includes: Current Devices No Medical Equipment Recorded Medications Includes: Medications discussed during this encounter and other current Medications Discontinued / Stopped on this date MAKAYLA HAMILTON on 10/11/2021 Pregabalin 75 MG Oral Capsule Provider: MAKAYLA LANE Diagnosis: Radiculopathy, l umbar region Last Documented On 2 2:13PM By LUZ BENAVIDES ; [facility] New / Renewed during this visit MAKAYLA HAMILTON on 11/14/2021 Pregabalin 75 MG Oral Capsule Provider: MAKAYLA LANE 14 day supply: 28 capsule, 0 refills Diagnosis: Radiculopathy, lumbar region 1 CAPSULE TWO TIMES A DAY Pharmacy: [facility] [address], [phone] - Last Documented On 2 2:23PM By LUZ BENAVIDES ; [facility] Current Medications (continue as prescribed) Pregabalin 150 MG Oral Capsule 10/11/2021 Provider: MAKAYLA LANE Diagnosis: Radiculopathy, l umbar region 1 CAPSULE TWO TIMES A DAY Last Documented On 2 9:18AM [facility] Phentermine HCl 30 MG Oral Capsule 09/29/2021 Provid er: GENO THOMAS MD Diagnosis: Last Documented On 2 9:15AM By LUZ NOLANDSANDY ; [facility] Meloxicam 15 MG Oral Tablet 09/27/2021 Provider: Diagnosis: As needed. 1 every 2-3 days. Last Documented On 2 9:15AM By LUZ BENAVIDES ; [facility] Oxybutynin Chloride ER 10 MG Oral Tablet Extended Release 24 Hour 09/27/2021 Provider: GENO THOMAS MD Diagnosis: Last Documented On 2 9:15AM By LUZ BENAVIDES ; [facility] HYDROcodone-Acetaminophen 5- 325 MG Oral Tablet 09/27/2021 Provider: GENO THOMAS MD Diagnosis: 1 tablet by mouth every 4 hours as needed for pa in. Last Documented On 2 9:15AM By [facility] ; [facility] Medications Administered Includes: Administered Medications from this encounter No Administered Medications Recorded Results Includes: Results discussed during this encounter No Results Recorded For Specified Dates History of Present Illness Includes: History of Present Illness from this encounter No History of Present Illness Recorded Social History Description Last Updated Tobacco non-user 10/11/2021 Last Documented On 2 12:33PM ; [facility] Difficulty walking 10/11/2021 Last Documented On 2 12:33PM ; [facility] Drug use 10/11/2021 Last Documented On 2 12:33PM ; [facility] No consumption of alcohol 10/11/2021 Last Documented On 2 12:33PM ; [facility] Type: Marijuana 10/11/2021 Last Documented On 2 12:33PM ; [facility] Smoking Status Unknown Procedures and Surgical History Surgical History Last Updated No Pacemaker 10/11/2021 Last Documented On 2 12:33PM ; [facility] Medical History Includes: Medical History addressed during this encounter Description Last Updated Denies a fear of falling. 10/11/2021 Last Documented On 2 12:33PM ; [facility] Has had a fall in the last 12 months. Last Documented On 2 12:33PM ; [facility] CT/MRI September 2021lower back butt 022 Last Documented On 2 12:33PM ; [facility] Moderate to severe pain 10/11/2021 Last Documented On 2 12:33PM ; [facility] No Pain Pump 10/11/2021 Last Documented On 2 12:33PM ; [facility] No Spinal cord stimulator 10/11/2021 Last Documented On 2 12:33PM ; [facility] Please list all illnesses/co nditions you have been diagnosed with: Stenosis of the spine bulging discs 10/11/2021 Last Documented On 2 12:33PM ; [facility] Please list all surgeries: B ladder tie 2005right foot- plantarfacitistubel 1995gallbladder removed 200710/11/2021 Last Documented On 2 12:33PM ; [facility] Uses a cane for support 10/11/2021 Last Documented On 2 12:33PM ; [facility] X-rays September 2021 lower back butt 2021 Last Documented On 2 12:33PM ; [facility] Family History Includes: Family History [...] Location Date Check-In Time Check-Out Time Diagnosis * PHONE CALL LUZ DEJESUS APRN-FPA, EXPERIMENTAL PSYCHOLOGIST-BC 11/14/2021 12:32PM 11:59PM Insurance Includes: Active Insurance Policies Plan Name Member ID Group # Subscriber Relationship Effect isidro Dates 1 - [facility] [id number] MARYAM MOLINA Self Clinical Notes Includes: Clinical Notes from this encounter No Clinical Notes Recorded
--- OUTSIDE RECORDS SUMMARY | 2024-07-18 16:42 | XMS_ITS | Patient Health Summary ---
Author Organization [facility] Address [address] [place] [address] Care Team Providers Care Blueprint Reader Name Role Phone Unavailable Primary Care Provider Unavailabl e Note from [facility],non-owned Affiliates and Associated Physician Practices is amultiple site organization consisting of ambulatory clinics and hospital sitesin [place], [place], [place]. This disclosure is being madepursuant to the Care Everywhere program and may not contain all information available regarding this patient. Last updated 18.[facility] Allergies No known active allergies Medications * Be aware that medications may not be up to date on this document. Alwaysverify current medications with the patient. * meloxicam (MOBIC) 15 MG tablet(Started 08/28/2021) * oxybutynin CR 24hr (DITROPAN-XL) 10 MG tablet(Started 08/20/2021) Take 10 mg by mouth once daily * cyclobenzaprine (FLEXERIL) 10 MG tablet(Started 11/22/2021) Take 1 (one) tablet by mouth 3 times daily 1 refill by 11/22/2022 * ypijdenksh-rpzngekqexkwp-urcugkus (FIORICET) 50-325-40 MG tablet(Started 11/22/2021) Take 1 (one) tablet by mouth every 4 hours as needed for Headache * gabapentin (NEURONTIN) 300 MG capsule(Started 12/30/2021) Take 1 (one) capsule by mouth 3 times daily 2 refills by 12/30/2022 Active Problems Problem Noted Date Diagnosed Date [...] Mass Index 31.1 01/07/2022 2:19 PM CDT Medical Devices Implanted Type Area Electrical Linesworker Device Identifier Shelf Expiration Date Model / Serial / Lot Slnt Dura Duraseal Pg Trilysine Amine 5 Implanted:Qty: 1 on 11/20/2021 by Alexander Lorenzo MD at [facility] N/A: Spine Lumbar Integra [employer] Leydi 03/07/2023 [id number] / / [id number] Graft Tissue Drgn + Bvn Clgn Mtrx 2x2in Implanted:Qty: 1 on 11/20/2021 by Alexander Lorenzo MD at [facility] N/A: Spine Lumbar Integra [employer] 09/05/2024 [id number] / / [id number] Procedures * BASIC METABOLIC PANEL (CALCIUM TOTAL)(Performed 11/22/2021) * CBC W AUTO DIFFERENTIAL(Performed 11/22/2021) * PT EVAL AND TREAT(Performed 11/21/2021) * FL TIAN SURGERY(Performed 11/20/2021) Performed for Chronic low back pain, unspecified back pain laterality, unspecified whether sciaticapresent * ENDOTRACHEAL TUBE NOTE(Performed 11/20/2021) * LAMINECTOMY LUMBAR MICROSCOPIC/MINIMALLLY INVASIVE(Performed 11/20/2021) Performed for Lumbar radiculopathy * BLOOD TYPE VERIFICATION(Performed 11/20/2021) * TYPE + SCREEN PANEL(Performed 11/20/2021) * PTT [facility](Performed 11/13/2021) Performed for Pre-op testing * PT-INR [facility](Performed 11/13/2021) Performed for Pre-op testing * CBC W AUTO DIFFERENTIAL(Performed 11/13/2021) Performed for Pre-op testing * BASIC METABOLIC PANEL (CALCIUM TOTAL)(Performed 11/13/2021) Performed for Pre-op testing * XR CHEST 2VW(Performed 11/13/2021) Performed for Pre-op testing * EKG 12-LEAD(Performed 11/13/2021) Performed for Pre-op testing Results * CBC W AUTO DIFFERENTIAL (11/22/2021 7:45 AM CDT) Only the most recent of2 resultswithin the time period is included. Pathologist [facility] WBC 3.8 3.5 - 10.5 10 3/uL 11/22/2021 8:03 AM CDT [facility] RBC 4.16 3.80 - 5.20 10 6/uL 11/22/2021 8:03 AM CDT [facility] Hemoglobin 12.1 12.0 - 15.6 g/dL 11/22/2021 8:03 AM [facility] Hematocrit 37.6 35.0 - 45.0 % 11/22/2021 8:03 AM [facility] MCV 90.4 80.7 - 98.3 fL 11/22/2021 8:03 AM [facility] MCH 29.1 26.7 - 34.0 pg 11/22/2021 8:03 AM [facility] MCHC 32.2 30.8 - 35.9 g/dL 11/22/2021 8:03 AM [facility] Platelet Count 185 150 - 400 10 3/uL 11/22/2021 8:03 AM [facility] RDW-SD 49.0 36.0 - 50.0 fL 11/22/2021 8:03 AM [facility] RDW-CV 14.8 11.2 - 14.8 % 11/22/2021 8:03 AM [facility] MPV 11.4 9.4 - 12.9 fL 11/22/2021 8:03 AM [facility] nRBC Absolute 0.00 0 10 3/uL 11/22/2021 8:03 AM [facility] nRBC Auto 0.0 0 /100 WBC 11/22/2021 8:03 AM [facility] Neutrophils % 51.6 35.0 - 70.0 % 11/22/2021 8:03 AM [facility] Lymphocytes % 32.8 20.0 - 43.0 % 11/22/2021 8:03 AM [facility] Monocytes % 12.2 5.0 - 13.0 % 11/22/2021 8:03 AM [facility] Eosinophils % 2.1 0.0 - 6.0 % 11/22/2021 8:03 AM [facility] Basophil % 0.5 0.0 - 2.0 % 11/22/2021 8:03 AM [facility] Neutrophils Absolute 1.95 1.60 - 7.00 10 3/uL 11/22/2021 8:03 AM CDT [facility] Lymphocyte Absolute 1.24 1.10 - 3.90 10 3/uL 11/22/2021 8:03 AM [facility] Monocytes Absolute 0.46 0.26 - 1.07 10 3/uL 11/22/2021 8:03 AM [facility] Eosinophils Absolute 0.08 0.00 - 0.47 10 3/uL 11/22/2021 8:03 AM [facility] Basophils Absolute 0.02 0.00 - 0.08 10 3/uL 11/22/2021 8:03 AM [facility] Immature Granulocytes % 0.8 0.0 - 1.0 % 11/22/2021 8:03 AM [facility] Immature Granulocytes Absolute 0.03 11/22/2021 8:03 AM [facility] Blood BLOOD SPECIMEN / Unknown Lab Venipuncture / Unknown 11/22/2021 7:45 AM CDT 11/22/2021 7:51 AM CDT Alexander Lorenzo MD LAB - HEMATOLOGY ORD ERABLES [facility] [address] [place] [address], [facility] [phone] * (ABNORMAL) BASIC METABOLIC PANEL (CALCIUM TOTAL) (11/22/2021 7:45 AM CDT) Only the most recent of2 resultswithin the time period is included. BUN 7 7 - 26 mg/dL 11/22/2021 8:15 AM [facility] Creatinine 0.60 0.56 - 0.96 mg/dL 11/22/2021 8:15 AM [facility] Sodium 141 136 - 145 mmol/L 11/22/2021 8:15 AM [facility] Potassium 3.5 3.5 - 4.5 mmol/L 11/22/2021 8:15 AM [facility] Chloride 103 98 - 107 mmol/L 11/22/2021 8:15 AM [facility] CO2 30(H) 22 - 29 mmol/L 11/22/2021 8:15 AM [facility] Glucose 99 70 - 115 mg/dL 11/22/2021 8:15 AM CDT [facility] Calcium 8.7 8.4 - 10.2 mg/dL 11/22/2021 8:15 AM CDT [facility] Anion Gap 12 8 - 18 11/22/2021 8:15 AM CDT [facility] BUN/Creatinine Ratio 12 7 - 23 11/22/2021 8:15 AM CDT [facility] Osmolality Calculated 290 270 - 300 mOsm/kg 11/22/2021 8:15 AM T [facility] eGFR by CKD-EPI >90 >=90 mL/min/1.7 3 m2 11/22/2021 8:15 AM CDT [facility] Blood BLOOD SPECIMEN / Unknown Lab Venipuncture / Unknown 11/22/2021 7:45 AM CDT 11/22/2021 7:51 AM CDT Alexander Lorenzo MD LAB - CHEMISTRY ORDE RABLES Performing Organization Address [facility] Co de Phone Number [facility] [address] [place] [phone], [facility] [phone] * FL TIAN SURGERY (11/20/2021 12:33 PM CDT) Narrative [facility] RAD[facility]OLOG[facility] - 11/20/2021 12:46 PM CDT Fluoroscopy was used for this exam in the OR. Please see the Operative report. Alexander Lorenzo MD FLUOROSCOPY ORDERABL ES Performing Organization Address [facility] Co de Phone Number [facility] * ETT LINE PERFORMABLE (11/20/2021 10:45 AM CDT) Narrative Estevan Mobley Anes Asst - 11/20/2021 10:45 AM CDT Estevan Mobley Anes Asst 11/20/2021 10:48 AM Endotracheal Tube Placement: Patient Location: OR. Intubation Event Date/Time: 11/20/2021 9:42 AM Procedure: intubation ([id number]). Procedure Section: Sedation: under general anesthesia. Indications for Airway Management: anesthesia Induction: standard IV Patient Position: sniffing Mask Ventilation: easy. Blade Type: Pinto Blade Size: 2 Laryngoscopy View: grade 1 (full cords) Intubation Adjuncts: stylet Tube: endotracheal tube Placement: oral Tube type: cuff - inflated Tube Size (MM): 7 Depth of Insertion (CM): 22 Measured From: lips Cuff Inflated With: air Number of Attempts: 1. Placement Verified By: direct visualization, chest auscultation, CO2 detector, CO2 monitor and bilateral breath sounds CXR Findings: ETT in proper place. Tube secured with: adhesive tape. Dentition unchanged? Yes Difficult Airway? No. Procedure Start Time: 11/20/2021 9:42 AM. Staff Section Anesthesia Provider: Estevan Mobley Anes Asst Provider #1: Ashly Quintero MD, Performed the procedure. Provider #2: Domi Cano MD. Additional Comments: Atraumatic intubation no change in dentition or soft tissue of aw after dl.. Domi Cano MD GENERAL ANESTHESIA ORDERABLES * BLOOD TYPE VERIFICATION (11/20/2021 8:50 AM CDT) ABO Rh A POS 11/20/2021 9:4 7 AM CDT [facility] Blood Bank BLOOD SPECIMEN / Unknown Lab Venipuncture / Unknown 11/20/2021 8:50 AM CDT 11/20/2021 8:52 AM CDT Provider Unknown LAB - BLOOD BANK ORD ERABLES [facility] [address] [place] [address], [facility] [phone] * TYPE + SCREEN PANEL (11/20/2021 8:35 AM CDT) Antibody Screen NEG 9:36 AM CDT [facility] ABO Rh A POS 11/20/2021 9:36 AM CDT [facility] Blood Bank BLOOD SPECIMEN / Unknown Venipuncture / Unknown 11/20/2021 8:35 AM CDT 11/20/2021 8:42 AM CDT Alexander Lorenzo MD LAB - BLOOD BANK ORD ERABLES Performing Organization Address [facility] Co de Phone Number [facility] [address] [place] [address], [facility] [phone] * PTT [facility] (11/13/2021 1:02 PM CDT) APTT 26.4 23.0 - 38.4 Seconds 11/13/2021 1:56 PM CDT [facility] Comment:Suggested therapeuti c range for full dose I.V. unfractionated heparin therapy for venous thromboembolism is 71 to 109 seconds. Blood BLOOD SPECIMEN / Unknown Lab Venipuncture / Unknown 11/13/2021 1:02 PM CDT 11/13/2021 1:28 PM CDT Alexander Lorenzo MD LAB - COAGULATION OR DERABLES Performing Organization Address [facility] Co de Phone Number [facility] [address] [place] [address], [facility] [phone] * PT-INR [facility] (11/13/2021 1:02 PM CDT) PT 12.6 12.1 - 14.8 Seconds 11/13/2021 1:56 PM CDT [facility] INR 1.0 See Comment 11/13/2021 1:56 PM CDT [facility] Comment:The suggested therap eutic range for standard coumadin (warfarin) therapy is an INR of 2.0-3.0. For high-risk patients (Mechanical Mitral Valve Prosthesis, etc.), the suggested prophylactic therapeutic range is an INR of 2.5-3.5. Blood BLOOD SPECIMEN / Unknown Lab Venipuncture / Unknown 11/13/2021 1:02 PM CDT 11/13/2021 1:28 PM CDT Alexander Lorenzo MD LAB - COAGULATION OR DERABLES Performing Organization Address [facility] Co de Phone Number [facility] [address] [place] [phone], [facility] [phone] * XR CHEST 2VW (11/13/2021 12:50 PM CDT) Anatomical Region Laterality Modality Chest Radiographic Idania ging 11/13/2021 3:17 PM CDT Impressions 11/14/2021 2:12 AM CDT IMPRESSION: No acute pulmonary process. Report dictated by Aydin Arzola DO (md do resident urgent care). Dr. GERALDINE Hargrove have personally reviewed and interpreted this examination/study. This report was electronically signed by GERALDINE BELLA on 11/14/2021 2:12 AM . Narrative 11/14/2021 2:12 AM CDT EXAMINATION: XR CHEST 2VW, 11/13/2021 12:50 PM HISTORY: Z01.818: Pre-op testing COMPARISON: No prior study is available for comparison. FINDINGS: There is no focal consolidation, pleural effusion, or pneumothorax. The cardiomediastinal silhouette is normal. Procedure Note Geraldine Bella MD - 11/14/2021 EXAMINATION: XR CHEST 2VW, 11/13/2021 12:50 PM HISTORY: [id number]: Pre-op testing COMPARISON: No prior study is available for comparison. FINDINGS: There is no focal consolidation, pleural effusion, or pneumothorax. The cardiomediastinal silhouette is normal. IMPRESSION: No acute pulmonary process. Report dictated by Aydin Arzola DO (md do resident urgent care). Dr. GERALDINE Hargrove have personally reviewed and interpreted this examination/study. This report was electronically signed by GERALDINE BELLA on 11/14/2021 2:12 AM. Alexander Lorenzo MD DIAGNOSTIC IMAGING O RDERABLES * EKG 12-LEAD (11/13/2021 11:49 AM CDT) Ventricular Rate 82 BPM [facility] Atrial Rate 82 BPM [facility] P-R Interval 168 ms [facility] QRS Duration ms 94 ms [facility] Q-T Interval ms 402 ms [facility] QTC Calculation (Bezet) 469 ms [facility] Calculated P Weldon 70 degrees [facility] MUSE Calculated R Weldon 53 degrees [facility] MUSE Calculated T Weldon 51 degrees [facility] MUSE Interpretation EKG NORMAL SINUS RHYTHM NORMAL ECG NO PREVIOUS ECGS AVAILABLE Confirmed by Kenneth Bautista ([id number]) on 11/15/2021 8:36:16 AM [facility] MARYAM 11/13/2021 11:4 9 AM CDT 11/15/2021 8:36 AM CDT Alexander Lorenzo MD ECG ORDERABLES [facility] MARYAM
--- OUTSIDE RECORDS SUMMARY | 2024-07-18 16:42 | XMS_ITS | Clinical Summary ---
Author Organization [facility] [address] Address [address] [place] [address] Phone Care Team Providers Care Grout Worker Name Role Phone Familia Pacheco MD Primary Care Provide r Allergies No known active allergies Medications estradioL [...] Overview (09/11/2016): Urge incontinence Abnormal mammogram 01/17/2009 Encounters Date Type Department Care Team Description 04/27/[address] [facility] [address] [place] [address] Feliz Shen MD Medication Request from Last 3 Months Surgical History Surgery Date Site/Laterality Comments DIAGNOSTIC LAPAROSCOPY 06/08/1983 - 06/07/1984 Pelvic pain COCCYGECTOMY 06/08/1995 - 06/07/1996 ENDOMETRIAL ABLATION W/ NOVASURE 06/08/2005 - 06/07/2006 SALPINGOSTOMY 06/08/1993 - 06/07/1994 Ectopic : Laparoscopic salpingostomy TUBAL LIGATION URETHRAL SLING 06/08/2004 - 06/07/2005 Stress urinary incontinence: Urethral sling, mesh BLADDER SURGERY FOOT SURGERY CHOLECYSTECTOMY Medical History Medical History Date Comments Hx Other Medical Ectopic pregnan cy Hx Other Medical Stress urinary incontinence Anxiety Urinary urgency Family history of breast cancer Patient offered genetic counseling Family History Medical History Relation Name Comments Other Father Carbon monoxide poisoning; Cause of : Carbon monoxide poisoning Breast cancer Father's Sister 1 Breast cancer Father's Sister 2 abnormal genetic testing Other Mother House fire; Cau se of : House fire Breast cancer Paternal Grandmother Relation Name Status Comments Father (Age 38) Father's Sister 1 Father's Sister 2 Mother (Age 56) Paternal Grandmother Social History Tobacco Use Types [...] on file Legal Sex Female 9:15 AM [employer]OUND WORK[employer] Gender Identity Not on file Sexual Orientation Not on file Obstetrics History Para Term AB IAB SAB Ectopic Multiple Livin g Live Births 5 3 3 0 1 3 Date Outcome GA Total Labor Labor/2nd/3rd Weight Sex Type Anes PTL Autumn A1 A5 Name Clin Term Term Term AB Last Filed Vital Signs Vital Sign Reading Time Taken Comments Blood Pressure 112/80 04/08/2024 1:57 PM CDT Pulse 79 08/02/2021 2:21 PM GROUND WORKER Temperature 36.3 C (97.3 F) 10/08/2020 9:51 AM CDT Respiratory Rate - - Oxygen Saturation - - Inhaled Oxygen Concentration - - Weight 99.8 kg (220 lb) 04/08/2024 1:57 PM CDT Height 175.3 cm (5' 9 ) 04/08/2024 1:57 PM CDT Body Mass Index 32.49 04/08/2024 1:57 PM CDT Plan of Treatment Health Maintenance Due Date Last Done Comments Colon Cancer Screening-Colonoscopy 1966 Depression Screening 1966 Hepatitis C Screening 1966 Hepatitis B Screening 1984 Zoster Vaccine (1 of 2) 2016 Influenza Vaccine (#1) 2024 03/24/2018 Breast Cancer Screening-Mammogram 04/08/2025 04/08/2024, 04/03/2023, 03/24/2022, Additional history exists Cervical Cancer Screening 04/08/20252023, 04/08/2024, 10/07/2019, Additional history exists Regular Well Visit/Exam 18-64 04/08/2025 04/08/2024, 04/03/2023, 03/24/2022, Additional history exists DTaP/Tdap/Td Vaccine (2 - Td or Tdap) 10/10/2025 10/11/2015 Pneumococcal vaccine <65 Aged Out No longer eligible based on patient's age to complete this topic Procedures Procedure Name Priority Date/Time Associated Diagnosis Comments HIGH RISK HPV DNA DETECTION WITH GENOTYPING Routine 04/08/2024 3:12 PM CDT Screening for malignant neoplasm of the cervix SCREENING MAMMOGRAM BILATERAL W NARCISO Schedule Routine, Read Routine (OP Routine) 04/08/2024 2:40 PM CDT Encounter for screening mammogram for malignant neoplasm of breast from Last 3 Months or Most Recently Relevant to Health Maintenance Results * High Risk HPV DNA Detection with Genotyping (Molecular component) (04/08/2024 3:12 PM CDT) HPV HR 16 Not Detected Not Detected [facility] Comment:Testing performed by : [facility], [address], [place]., [address] HPV HR 18 Not Detected Not Detected [facility] Comment:Testing performed by : [facility], [address] [place]., [address] HPV HR Non 16/18 Not Detected Not [...] this test have been verified by the [facility] Molecular Infectious Disease laboratory. Correlate with separately reported cytology results, as applicable. Interpretive data last revised 22 Testing performed by: [facility], [address] [place]., [address] Endocervical 04/08/2024 3:12 PM CDT 04/11/2024 2:01 PM GROUND WORKER Narrative MAIRA ESPARZA - 04/12/2024 5:06 AM GROUND WORKER Clinical history and diagnosis->DX Z12.4 Testing type->Screening Last menstrual period (date if known)->N/A Menstrual status->Postmenopausal Previous negative PAP?->Yes Feliz Shen MD LAB BODY FLUIDS AND S TOOLS ORDERABLES Final Result [facility] [id number] Department [place] [address] [facility] * Screening Mammogram Bilateral W Narciso (04/08/2024 2:40 PM CDT) Anatomical Region Laterality [...] PM CDT EXAMINATION: SCREENING MAMMOGRAM BILATERAL W NARCISO ORDERING HEALTHCARE PROVIDER: FELIZ SHEN HISTORY: Routine screening mammography. COMPARISON: 04/03/2023, [...] There has been no suspicious interval change. us Feliz Shen MD IMG MAMMO PROCEDURES Final Result from Last 3 Months or Most Recently Relevant to Health Maintenance Insurance [facility] [place] [id number] Care Teams Grout Worker Relationship Specialty Start Date End Date Familia Pacheco MD [address] [place] [address] PCP - General Family Medicine 06/26/17
--- OUTSIDE RECORDS SUMMARY | 2024-07-18 16:42 | XMS_ITS | Data Portability ---
Author Organization [facility] Address [address] [place] [address] Assessment No assessment recorded. Plan of Treatment Reminders Order Date Submit Date Provider Last Modified By Organization Details Last Modified Time Details Appointments None record ed. Lab HbA1c (hemog lobin A1c), blood [facility], [address] [place] [address], [place] [address], [place], [address], 11:19:10 lipid panel, serum 2023 [facility], [address] [place] [address], [place] [address], [place], [address], 11:19:04 CBC w/ auto diff 2023 [facility], [address] [place] [address], [place] [address], [place], [address], 11:19:11 vitami n D, 25-hyd rubin, total, serum 2023 [facility], [address] [place] [address], [place] [address], [place], [address], 11:19:12 TSH, ultra- sensit isidro, serum 2023 [facility], [address] [place] [address], [address], [place], [address], 11:19:07 CMP, serum or plasma 2023 [facility], [address], [address], [place], [address], 11:19:05 iron + total iron-b inding capaci ty (TIBC) , serum 2023 [facility], [address], [address], [place], [address], 11:19:08 Referral urogyn ecolog ist referr al 2023 KYLEIGH Kendrick MD, [address], [address], [place], [address], 10:10:45 Procedures None record ed. Surgeries None record ed. Imaging None record ed. Medication Orders Ozempi c 0.25 mg or 0.5 mg (2 mg/1.5 mL) subcut aneous pen inject or [facility]23 [id number], [address], [place], [id number], 16:40:03 Myrbet riq 25 mg tablet ,exten ded releas e 2023 [id number], [address], [place], [id number], 14:43:01 Patient TargetsNo targets recorded. Patient Instructions Encounter Date Encounter Id Patient Instructions Last Modified By Organization Details Last Modified Time 03/29/2024 [id number] A healthy lifestyle: care instructions [email or web address] Not available 03/29/2024 12:55:21 Reason for Referral Urogynecologist Referral for Overactive urinary bladder Referring Physician: Larissa Ellsworth, Family Medicine, Encounter Date: 03/29/2024 Results Created Date Observation Date Name Description Value Unit Range Abnormal Flag Note LastModifiedBy Organization Detail LastModifiedTime 03/29/2003/30/2024 LIPID PANEL cholesterol, total 209 mg/dL 100-19 9 above high normal Not Available [facility] ([facility]) [address] [place], [address], 03/30/2024 11:19:04 03/29/2003/30/2024 LIPID PANEL triglyceride s 47 mg/dL 0-149 Not Available [facility] ([facility]) [address] [place], [address], 03/30/2024 11:19:04 03/29/2003/30/2024 LIPID PANEL HDL cholesterol 74 mg/dL >39 Not Available [facility] ([facility]) [address] [place], [address], 03/30/2024 11:19:04 03/29/2003/30/2024 LIPID PANEL VLDL cholesterol casie 9 mg/dL 5-40 Not Available [facility] ([facility]) [address] [place], [address], 03/30/2024 11:19:04 03/29/2003/30/2024 LIPID PANEL LDL chol calc ([facility]) 126 mg/dL 0-99 above high normal Not Available [facility] ([facility]) [address] [place], [address], 03/30/2024 11:19:04 03/29/2003/30/2024 CMP14 +EGFR glucose 96 mg/dL 70-99 Not Available [facility] ([facility]) [address] [place], [address], 03/30/2024 11:19:05 03/29/2003/30/2024 CMP14 +EGFR BUN 12 mg/dL 6-24 Not Available [facility] ([facility]) [address] [facility], [place], [address], 03/30/2024 11:19:05 03/29/2003/30/2024 CMP14 +EGFR creatinine 0.69 mg/dL 0.57-1 .00 Not Available [facility] ([facility]) [address] [facility], [place], [address], 03/30/2024 11:19:05 03/29/2003/30/2024 CMP14 +EGFR eGFR 101 mL/mi n/1.7 3 >59 Not Available [facility] ([facility]) [address] [facility], [place], [address], 03/30/2024 11:19:05 03/29/2003/30/2024 CMP14 +EGFR BUN/creatini ne ratio 17 -23 Not Available [facility] ([facility]) [address] [facility], [place], [address], 03/30/2024 11:19:05 03/29/2003/30/2024 CMP14 +EGFR sodium 139 mmol/ L 134-14 4 Not Available [facility] ([facility]) [address] [facility], [place], [address], 03/30/2024 11:19:05 03/29/2003/30/2024 CMP14 +EGFR potassium 4.0 mmol/ L 3.5-5. 2 Not Available [facility] ([facility]) [address] [facility], [place], [address], 03/30/2024 11:19:05 03/29/2003/30/2024 CMP14 +EGFR chloride 101 mmol/ L 96-106 Not Available [facility] ([facility]) [address] [facility], [place], [address], 03/30/2024 11:19:05 03/29/2003/30/2024 CMP14 +EGFR carbon dioxide, total 25 mmol/ L 20- Not Available [facility] ([facility]) [address] [place], [address], 03/30/2024 11:19:05 03/29/2003/30/2024 CMP14 +EGFR calcium 9.1 mg/dL 8.7-10 .2 Not Available [facility] ([facility]) [address] [facility], [place], [address], 03/30/2024 11:19:05 03/29/2003/30/2024 CMP14 +EGFR protein, total 7.0 g/dL 6.0-8. 5 Not Available [facility] ([facility]) [address] [facility], [place], [address], 03/30/2024 11:19:05 03/29/2003/30/2024 CMP14 +EGFR albumin 4.1 g/dL 3.8-4. 9 Not Available [facility] ([facility]) [address] [place], [address], 03/30/2024 11:19:05 03/29/2003/30/2024 CMP14 +EGFR globulin, total 2.9 g/dL 1.5-4. 5 Not Available [facility] ([facility]) [address] [place], [address], 03/30/2024 11:19:05 03/29/2003/30/2024 CMP14 +EGFR bilirubin, total 0.5 mg/dL 0.0-1. 2 Not Available [facility] ([facility]) [address] [place], [address], 03/30/2024 11:19:05 03/29/2003/30/2024 CMP14 +EGFR alkaline phosphatase 119 IU/L 44-121 Not Available [facility] ([facility]) [address] [facility], [place], [address], 03/30/2024 11:19:05 03/29/2003/30/2024 CMP14 +EGFR AST (SGOT) 18 IU/L 0-40 Not Available [facility] ([facility]) [address] [facility], [place], [address], 03/30/2024 11:19:05 03/29/2003/30/2024 CMP14 +EGFR ALT (SGPT) 14 IU/L 0-32 Not Available [facility] ([facility]) [address] [facility], [place], [address], 03/30/2024 11:19:05 03/29/2003/30/2024 TSH RFX ON ABNOR MAL TO FREE T4 TSH 2.060 uIU/m L 0.450- 4.500 Not Available [facility] ([facility]) [address] [place], [address], 03/30/2024 11:19:07 03/29/2003/30/2024 IRON AND TIBC iron bind.cap.(TI BC) 234 ug/dL 250-45 0 below low normal Not Available [facility] ([facility]) [address] [facility], [place], [address], 03/30/2024 11:19:08 03/29/2003/30/2024 IRON AND TIBC UIBC 147 ug/dL 131-42 5 Not Available [facility] ([facility]) [address] [place], [address], 03/30/2024 11:19:08 03/29/2003/30/2024 IRON AND TIBC iron 87 ug/dL 27-159 Not Available [facility] ([facility]) [address] [place], [address], 03/30/2024 11:19:08 03/29/2003/30/2024 IRON AND TIBC iron saturation 37 % 15-55 Not Available [facility] ([facility]) [address] [facility], [place], [address], 03/30/2024 11:19:08 03/29/2003/30/2024 HEMOG LOBIN A1C hemoglobin A1C 5.9 % 4.8-5. 6 above high normal Predi abete s: 5.7 - 6.4 Diabe gabe: >6.4 Glyce skip contr ol for adult s with diabe gabe: <7.0 Not Available [facility] ([facility]) [address] [facility], [place], [address], 03/30/2024 11:19:09 03/29/2003/30/2024 CBC WITH DIFFE RENTI AL/PL ATELE T WBC 5.2 x10e3 /uL 3.4-10 .8 Not Available [facility] ([facility]) [address] [facility], [place], [address], 03/30/2024 11:19:11 03/29/2003/30/2024 CBC WITH DIFFE RENTI AL/PL ATELE T RBC 4.58 x10e6 /uL 3.77-5 .28 Not Available [facility] ([facility]) [address] [facility], [place], [address], 03/30/2024 11:19:11 03/29/2003/30/2024 CBC WITH DIFFE RENTI AL/PL ATELE T hemoglobin 13.3 g/dL 11.1-1 5.9 Not Available [facility] ([facility]) [address] [place], [address], 03/30/2024 11:19:11 03/29/2003/30/2024 CBC WITH DIFFE RENTI AL/PL ATELE T hematocrit 42.0 % 34.0-4 6.6 Not Available [facility] ([facility]) [address] [facility], [place], [address], 03/30/2024 11:19:11 03/29/2003/30/2024 CBC WITH DIFFE RENTI AL/PL ATELE T MCV 92 fL 79-97 Not Available [facility] ([facility]) [address] [facility], [place], [address], 03/30/2024 11:19:11 03/29/2003/30/2024 CBC WITH DIFFE RENTI AL/PL ATELE T MCH 29.0 pg 26.6-3 3.0 Not Available [facility] ([facility]) [address] [facility], [place], [address], 03/30/2024 11:19:11 03/29/2003/30/2024 CBC WITH DIFFE RENTI AL/PL ATELE T MCHC 31.7 g/dL 31.5-3 5.7 Not Available [facility] ([facility]) [address] [facility], [place], [address], 03/30/2024 11:19:11 03/29/2003/30/2024 CBC WITH DIFFE RENTI AL/PL ATELE T RDW 13.8 % 11.7-1 5.4 Not Available [facility] ([facility]) [address] [facility], [place], [address], 03/30/2024 11:19:11 03/29/2003/30/2024 CBC WITH DIFFE RENTI AL/PL ATELE T platelets 246 x10e3 /uL 150-45 0 Not Available [facility] ([facility]) [address] [facility], [place], [address], 03/30/2024 11:19:11 03/29/2003/30/2024 CBC WITH DIFFE RENTI AL/PL ATELE T neutrophils 54 % notest ab. Not Available [facility] ([facility]) [address] [facility], [place], [address], 03/30/2024 11:19:11 03/29/2003/30/2024 CBC WITH DIFFE RENTI AL/PL ATELE T lymphs 35 % notest ab. Not Available [facility] ([facility]) [address] [facility], [place], [address], 03/30/2024 11:19:11 03/29/2003/30/2024 CBC WITH DIFFE RENTI AL/PL ATELE T monocytes 8 % notest ab. Not Available [facility] ([facility]) [address] [facility], [place], [address], 03/30/2024 11:19:11 03/29/2003/30/2024 CBC WITH DIFFE RENTI AL/PL ATELE T eos 2 % notest ab. Not Available [facility] ([facility]) [address] [facility], [place], [address], 03/30/2024 11:19:11 03/29/2003/30/2024 CBC WITH DIFFE RENTI AL/PL ATELE T basos 1 % notest ab. Not Available [facility] ([facility]) [address] [facility], [place], [address], 03/30/2024 11:19:11 03/29/2003/30/2024 CBC WITH DIFFE RENTI AL/PL ATELE T neutrophils (absolute) 2.9 x10e3 /uL 1.4-7. 0 Not Available [facility] ([facility]) [address] [facility], [place], [address], 03/30/2024 11:19:11 03/29/2003/30/2024 CBC WITH DIFFE RENTI AL/PL ATELE T lymphs (absolute) 1.8 x10e3 /uL 0.7-3. 1 Not Available [facility] ([facility]) [address] [facility], [place], [address], 03/30/2024 11:19:11 03/29/2003/30/2024 CBC WITH DIFFE RENTI AL/PL ATELE T monocytes(ab solute) 0.4 x10e3 /uL 0.1-0. 9 Not Available [facility] ([facility]) [address] [facility], [place], [address], 03/30/2024 11:19:11 03/29/20 24 03/30/2024 CBC WITH DIFFE RENTI AL/PL ATELE T eos (absolute) 0.1 x10e3 /uL 0.0-0. 4 Not Available [facility] ([facility]) [address] [facility], [place], [address], 03/30/2024 11:19:11 03/29/2003/30/2024 CBC WITH DIFFE RENTI AL/PL ATELE T baso (absolute) 0.0 x10e3 /uL 0.0-0. 2 Not Available [facility] ([facility]) [address] [place], [address], 03/30/2024 11:19:11 03/29/20 24 03/30/2024 CBC WITH DIFFE RENTI AL/PL ATELE T immature granulocytes 0 % notest ab. Not Available [facility] ([facility]) [address] [facility], [place], [address], 03/30/2024 11:19:11 03/29/20 24 03/30/2024 CBC WITH DIFFE RENTI AL/PL ATELE T immature grans (abs) 0.0 x10e3 /uL 0.0-0. 1 Not Available [facility] ([facility]) [address] [place], [address], 03/30/2024 11:19:11 03/29/20 24 03/30/2024 VITAM IN D, 25-HY DROXY vitamin D, 25-hydroxy 31.0 NG/mL 30.0-1 00.0 Vitam in D defic iency has been defin ed by the Insti tute of Medic ine and an Endoc rine Socie ty pract ice guide line as a level of serum 25-OH vitam in D less than 20 ng/mL (1,2) . The Endoc rine Socie ty went on to furth er defin e vitam in D insuf ficie ncy as a level betwe en 21 and 29 ng/mL (2). 1. IOM (Inst itute of Medic ine). 2010. Dieta ry refer ence conorak es for calci um and D. Mac ortiz [place]: The [facility] Press . 2. Santos conde MF, Zi guadarrama [place], Bisch off-F errar i GUZMAN, et al. Evalu ation , treat ment, and preve ntion of vitam in D defic iency : an Endoc rine Socie ty clini casie pract ice guide line. JCEM. 2010; 96(7) :1911 -30. Not Available [facility] ([facility]) [address] [facility], [place], [address], 03/30/2024 11:19:12 Result Notes None recorded. Problems No Known Problems Medical Equipment None Reported. Allergies No known drug allergies Medications Name Sig Start Date Stop Date Status Note LastModified by Organization Details LastModified Time oxybutynin chloride ER 15 mg tablet,exte nded release 24 hr active Not Available Not Available Not Available topiramate 25 mg tablet TAKE 1 TABLET BY MOUTH TWICE DAILY active Not Available Not Available No t Available phentermine 30 mg capsule 03/29 completed Not Available Not Available Not Available escitalopra m 10 mg tablet active Not Available Not Available Not Available mirabegron ER 25 mg tablet,exte nded release 24 hr Take 1 tablet every day by oral route at bedtime. active Not Available Not Available No t Available Ozempic 0.25 mg or 0.5 mg (2 mg/1.5 mL) subcutaneou s pen injector Inject 0.25 mg every week by subcutane ous route. 04/26 completed Not Available Not Available Not Available Wegovy 0.25 mg/0.5 mL subcutaneou s pen injector Inject by subcutane ous route for 28 days. 2023 active Not Available Not Available Not Avai lable Paxlovid 300 mg (150 mg x 2)-100 mg tablets in a dose pack TK 2 NIRMATREL VIR TS AND 1 RITONAVIR T TOGETHER PO BID FOR 5 DAYS 03/29 completed Not Available Not Available Not Available Mounjaro 2.5 mg/0.5 mL subcutaneou s pen injector 2023 active Not Available Not Available Not Avai lable Ozempic 0.25 mg or 0.5 mg (2 mg/3 mL) subcutaneou s pen injector Inject 0.25 mg every week by subcutane ous route for 42 days. 04/14 completed Not Available Not Available Not Available Vitals Date Recorded Body weight Body mass index (BMI) Body height Oxygen saturation Oxygen saturation in Arterial blood by Pulse oximetry Respiratory rate Body temperature Systolic blood pressure Diastolic blood pressure Provider Name and Address Organization Details Last Updated DateTime 4 08909.0 5 g 31 kg/m2 177.8 cm 98 % 98 % 18 /min 97.4 [degF] 120 mm[Hg] 78 mm[Hg] Odalis Carlton MA [facility] 12:15:26 Social History Question Answer Notes LastModified by Organizat ion Details LastModified Time Tobacco Smoking Status Never Smoker Odalis Carlton MA null, [facility] 03/29/2024 12:13:58 What Was The Date Of Your Most Recent Tobacco Screening? 03/29/2024 [email or web address] Information not available 03/29/2024 Sex: Female Functional Status None recorded. Mental Status None recorded. Family History Nothing Reported. Medical History No medical history recorded. Gynecological HistoryNo gynecological history recorded. Obstetrics History GPAL:G 0 P 0 0 0 0 Past Encounters Encounter ID Performer Location Encounter Start Date Encounter Closed Date Diagnosis/Indication Diagnosis SNOMED-CT Code Diagnosis ICD10 Code Diagnosis Note [id number] VICKY Ferro [facility] (Adult Med) [address] [place] [address] 03/29/2024 11:55:32 03/30/2024 11:21:36 Body mass index 30+ - obesity 376243314 Z68.30 Obesity 594221221 E66.9 labs ordered Overactive urinary bladder 090576029 N32.81 surgery 20 years agostill having incontinen ce, worse at night timeno relief with oxybutnin, will d/c and trial with myrbetriq 25 q hsreferral to urogynecol ogistfollo w up in 1month Health Concerns Section Related Observation LastModified by Organization Detai ls LastModified Time None Recorded Concern Status LastModified by Organization Details LastModified Time None Recorded Advance Directives Directive None Recorded Payers Encounter Date Sequence Insurance Name Policy Number Policy Ahuja Covered Member ID Ahuja Member ID Guarantor Name 03/29/2024 1 [facility] [employer] CHOICE POS II (POS) Johnny Luevano [id number] Jessica Luevano Notes Date Note Type Note Provider Name and Address Organization Details Recorded Time 03/29/2024 text/html ObesityReported bypatient.Context:no inhaled steroids; no oral steroids Associated Symptoms:no depression Co-morbidities:overwei ght/obese Lifestyle changes:not losing weight Nutrition:doesn't follow any kind of diet plan Physical Activity:no exercise Medication Education:understands potential side effects; understands administration; understands role of diet as primary therapyUrinary FrequencyReported bypatient.Quality:symp toms worse in the evening Severity:moderate Associated Symptoms:no abdominal pain; no back pain; no chills; no constipation; no diarrhea; no pain with urination; normal emptying of bladder; no blood in the urine; no hesitancy; normal libido; no nausea; no vomiting; no nocturia; no urine odor; no straining; no fever; no feelings of urgency; no urge incontinence;dribbling ;incontinenceNotes:his tory of surgery x 20years ago, has worked in the past, but incontinence has returned x 2 years agono relief with oxybutynin Larissa Ellsworth PA-C Attn: Accounting,[address] [facility], [place], [address], [facility] 03/29/2024 14:58:26 OBGyn Episode No OBEpisode recorded.
== END 2024-07-18 16:39 | disposition home or self-care (01) ==
LOC: CHSIMG 16:40
PROVIDERS: PCP Family Medicine; Visit Provider Family Medicine
DX: R05.1 Acute cough (principal)
CPT/HCPCS: 71046

== ENCOUNTER 2024-08-03 08:34 | Emergency (ER) | payer OTHER, SELFPAY ==
--- NOTE | ~2024-08-03 | CT_ITS ---
EXAMINATION: CT abdomen pelvis w con DATE: 08/03/2024 11:36 INDICATION: Right lower quadrant abdominal pain. TECHNIQUE: Computed tomography (CT) of the abdomen and pelvis was performed with 100 mL Omnipaque 350 intravenous contrast. Automated exposure control and iterative reconstruction technique were employe d. The dose-length product was 897.62 mGy-cm. COMPARISON: None. FINDINGS: The visualized portions of the lung bases demonstrate mild atelectasis. There is mild bronc hiectasis in left lower lobe. No pleural effusion. The heart size is normal. No pericardial effusion. The liver and spleen are normal. There are changes of cholecystectomy. The pancreas, adrenal glands, and kidneys are normal. There are no dilated loops of bowel. The appendix is normal. There are no pa thologically enlarged lymph nodes. There is no free intraperitoneal fluid. There is severe lumbar spo ndylosis. IMPRESSION: 1. No etiology for the patient's symptoms. Reviewed, dictated and finalized at location A. ER WASHER
[2024-08-03 08:34] VITALS: BP 130/75; PULSE 88; RESP 18; TEMP 36.2; O2SAT 99
--- OUTSIDE RECORDS SUMMARY | 2024-08-03 08:55 | XMS_ITS | Clinical Summary ---
Author Organization [facility] Address [address] [place] [address] Phone Care Team Providers Care Associate Professor Of Management Name Role Phone WILLIAM TOLEDO, GENO Primary Care Provider [phone] J CARLOS LANGSTON MD Unavailable [phone] Reason for Visit and Chief Complaint The Chief Complaint is: Referred by Dr. Geno Thomas Sciatic nerve and back pain Plan of Treatment Risk assessment completed and UDS collected for initial pain management visit to determine opioid candidacy and risk. Urine sample sent for confirmation via LCMS when appropriate. - Last Documented On 10/14/2021 12:03PM ; [facility] Referrals To Diagnosis Pain Management [facility] - [address] [place] [address] - Radiculopathy, lumbar region Note: Needs done this week p rior to surgery if possible.Consent for RightTransforaminal Epidural steroid injection at L3-4 and L4-5 under fluorsocopyNo need to hold NSAIDs/ ASA Last Documented On 3 4:52PM ; [facility] Instructions to patient Intervention and counseling on cessation of tobacco use : Patient recieved smoking cessation handout Last Documented On 2 8:23AM ; [facility] Education and Decision Aids were provided during visit for: Pill Count: 45 Hydrocodone 5 /325 Last Documented On 2 9:19AM ; [facility] Assessments Includes: Assessments from this encounter Findings - [M54.9 - Dorsalgia, unspecified] DORSALGIA - Last Documented On 10/14/2021 12:03PM ; [facility] - [M51.26 - Other intervertebral disc displacement, lumbar region] Bulging lumbar disc - Last Documented On 10/14/2021 12:03PM ; [facility] - [M47.26 - Other spondylosis with radiculopathy, lumbar region] Lumbar spondylosis with radiculopathy - Last Documented On 10/14/2021 12:03PM ; [facility] - [M48.062 - Spinal stenosis, lumbar region with neurogenic claudication] Lumbar canal stenosis with neurogenic claudication - Last Documented On 10/14/2021 12:03PM ; [facility] - [M54.16 - Radiculopathy, lumbar region] Lumbar radiculopathy - Last Documented On 10/14/2021 12:03PM ; [facility] Instructions Includes: Instructions from this encounter Instructions to patient Intervention and counseling on cessation of tobacco use : Patient recieved smoking cessation handout Last Documented On 2 8:23AM ; [facility] Education and Decision Aids were provided during visit for: Pill Count: 45 Hydrocodone 5 /325 Last Documented On 2 9:19AM ; [facility] Medical Equipment - Implanted Devices Includes: Current Devices No Medical Equipment Recorded Medications Includes: Medications discussed during this encounter and other current Medications New / Renewed during this visit MAKAYLA HAMILTON on 10/11/2021 Pregabalin 150 MG Oral Capsule Provider: MAKAYLA LNAE 30 day supply: 60 capsule, 0 refills Diagnosis: Radiculopathy, lumbar region 1 CAPSULE TWO TIMES A DAY [facility]acy: [facility] [address], [id number] - Last Documented On 2 9:18AM By LUZ BENAVIDES ; [facility] Pregabalin 75 MG Oral Capsule Provider: MAKAYLA LANE 14 day supply: 32 capsule, 0 refills Diagnosis: Radiculopathy, lumbar region 1 tab at HS for 4 days, then 1 two times daily for 4 days, then 1 in am and 2 in pm for 4 days then 2 tabs two times daily Pharmacy: [facility] [address], [id number] - Last Documented On 2 2:13PM By LUZ BENAVIDES ; [facility] Current Medications (continue as prescribed) Pregabalin 75 MG Oral Capsule 11/14/2021 Provider: LUZ DEJESUS APRN- СЕРГЕЙA, NADER-SANDY Diagnosis: Radiculopathy, l umbar region 1 CAPSULE TWO TIMES A DAY Last Documented On 2 2:23PM By LUZ BENAVIDES ; [facility] Phentermine HCl 30 MG Oral Capsule 09/29/2021 Provid er: GENO THOMAS MD Diagnosis: Last Documented On 2 9:15AM By LUZ BENAVIDES ; [facility] Meloxicam 15 MG Oral Tablet 09/27/2021 Provider: Diagnosis: As needed. 1 every 2-3 days. Last Documented On 2 9:15AM By LUZ BENAVIDES ; [facility] Oxybutynin Chloride ER 10 MG Oral Tablet Extended Release 24 Hour 09/27/2021 Provider: GENO THOMAS MD Diagnosis: Last Documented On 2 9:15AM By LUZ BENAVIDES ; [facility] HYDROcodone-Acetaminophen 5- 325 MG Oral Tablet 09/27/2021 Provider: GENO THOMAS MD Diagnosis: 1 tablet by mouth every 4 hours as needed for pa in. Last Documented On 2 9:15AM By LUZ BENAVIDES ; [facility] Medications Administered Includes: Administered [...] 99 Last Documented: On 10/11/2021 8:42AM ; [facility] Results Includes: Results discussed during this encounter Drugs of abuse screen [facility] Ordered by LUZ DEJESUS APRN-ISMA, NADER- SANDY on 10/11/2021 Collected: Reported: 10/11/2021 08:47 Last Documented On 2 8:48AM ; [facility] Reviewed on 10/11/2021; All test results are final unless otherwise noted. Lot # & Exp. Date [id number] EXP 2023-02-21 (NEG) N (Normal) Last Documented On 2 8:48AM ; [facility] Amphetamines POS (POS) A (Abnormal) Last Documented On 2 8:48AM ; [facility] Barbiturates NEG (neg) N (Normal) Last Documented On 2 8:48AM ; [facility] Benzodiazepines NEG (neg) N (Normal) Last Documented On 2 8:48AM ; [facility] Cocaine NEG (neg) N (Normal) Last Documented On 2 8:48AM ; [facility] Ecstasy NEG (Neg) N (Normal) Last Documented On 2 8:48AM ; [facility] Methamphetamines NEG (neg) N (Normal) Last Documented On 2 8:48AM ; [facility] Methadone NEG (Neg) N (Normal) Last Documented On 2 8:48AM ; [facility] Morphine NEG (Neg) N (Normal) Last Documented On 2 8:48AM ; [facility] Oxycodone NEG (Neg) N (Normal) Last Documented On 2 8:48AM ; [facility] Phencyclidine NEG (NEG) N (Normal) Last Documented On 2 8:48AM ; [facility] TCA/Tricyclic Antidepressants NEG (neg) N (Normal) Last Documented On 2 8:48AM ; [facility] Cannabis POS (POS) A (Abnormal) Last Documented On 2 8:48AM ; [facility] History of Present Illness Includes: History [...] and L5- S1 on November 20 at [facility] (unsure of surgeon's name). She has numbness, [...] 10/11/2021 Last Documented On 2 12:03PM ; [facility] Difficulty walking 10/11/2021 Last Documented On 2 12:03PM ; [facility] Drug use 10/11/2021 Last Documented On 2 12:03PM ; [facility] No consumption of alcohol 10/11/2021 Last Documented On 2 12:03PM ; [facility] Type: Marijuana 10/11/2021 Last Documented On 2 12:03PM ; [facility] Smoking Status Unknown Procedures and Surgical History Includes: Procedures from this encounter Procedures Code Diagnosis Performing Provider Service L ocation Service Date intervention and counseling on cessation of tobacco use : Patient recieved smoking cessation handout 4000F Last Documented On 2 8:23AM ; [facility] use of tobacco assessment performed 1000F Last Documented On 2 8:37AM ; [facility] patient screened for future fall risk: documentation of any fall with injury in past year 1100F Last Documented On 2 8:23AM ; [facility] review of medications documented 1160F Last Documented On 2 8:23AM ; [facility] screening for adult depression: impressi on and score seven Last Documented On 2 8:23AM ; [facility] standardized depression screening: posit isidro for symptoms Last Documented On 2 8:23AM ; [facility] Clinical summary provided to patient Last Documented On 2 8:22AM ; [facility] SOAPP-R: total score 9 Last Documented On 2 8:22AM ; [facility] Surgical History Last Updated No Pacemaker 10/11/2021 Last Documented On 2 12:03PM ; [facility] Medical History Includes: Medical History addressed during this encounter Description Last Updated Denies a fear of falling. 10/11/2021 Last Documented On 2 12:03PM ; [facility] Has had a fall in the last 12 months. Last Documented On 2 12:03PM ; [facility] CT/MRI September 2021lower back butt 022 Last Documented On 2 12:03PM ; [facility] Moderate to severe pain 10/11/2021 Last Documented On 2 12:03PM ; [facility] No Pain Pump 10/11/2021 Last Documented On 2 12:03PM ; [facility] No Spinal cord stimulator 10/11/2021 Last Documented On 2 12:03PM ; [facility] Please list all illnesses/co nditions you have been diagnosed with: Stenosis of the spine bulging discs 10/11/2021 Last Documented On 2 12:03PM ; [facility] Please list all surgeries: B ladder tie 2005right foot- plantarfacitistubel 1994gallbladder removed 200710/11/2021 Last Documented On 2 12:03PM ; [facility] Uses a cane for support 10/11/2021 Last Documented On 2 12:03PM ; [facility] X-rays September 2021 lower back butt 2021 Last Documented On 2 12:03PM ; [facility] Family History Includes: Family [...] Diagnosis PAIN MANAGEMENT NEW CONSULT LUZ DEJESUS CERTIFIED ENERGY MANAGER-FPA, BEARING PRESS MACHINE OPERATOR-BC [facility] 022 8:21AM 9:06AM Lumbar Radiculopathy,Bul ging Intervertebral Disc Lumbar,Spinal Stenosis Lumbar with Neurogenic Claudication,Spon dylosis with Radiculopathy Lumbar Region,Dorsalgia Insurance Includes: Active Insurance Policies Plan Name Member ID Group # Subscriber Relationship Effect isidro Dates 1 - [facility] [id number] MARYAM MOLINA Self Clinical Notes Includes: Clinical Notes from this encounter No Clinical Notes Recorded
--- OUTSIDE RECORDS SUMMARY | 2024-08-03 08:55 | XMS_ITS | Clinical Summary ---
Author Organization [facility] [address] Address [address] [employer] [place] [address] Phone Care Team Providers Care Staff Development Coordinator Rn Name Role Phone Familia Pacheco MD Primary [...] Overview (09/11/2016): Urge incontinence Abnormal mammogram 01/17/2009 Surgical History Surgery Date Site/Laterality Comments DIAGNOSTIC [...] on file Legal Sex Female 9:15 AM [employer] Gender Identity Not on file Sexual Orientation [...] PM CDT Pulse 79 08/02/2021 2:21 PM [employer] Temperature 36.3 C (97.3 F) 10/08/2020 9:51 [...] HPV HR 16 Not Detected Not Detected [facility] Comment:Testing performed by : [facility], [address] [facility] [address] HPV HR 18 Not Detected Not Detected [facility] Comment:Testing performed by : [facility], [address] [facility], [place]., [address] HPV HR Non 16/18 Not Detected Not Detected [facility] Comment: Interpretive Data Nucleic acid amplification for [...] this test have been verified by the [facility] laboratory. Correlate with separately reported cytology results, as applicable. Interpretive data last revised 22 Testing performed by: [facility], [address] [place]., [address] Endocervical 04/08/2024 3:12 PM CDT 04/11/2024 2:01 PM [employer] Narrative [facility] Cole 04/12/2024 5:06 AM [employer] Clinical history and diagnosis->DX Z12.4 Testing type->Screening Last menstrual period (date if known)->N/A Menstrual status->Postmenopausal Previous negative PAP?->Yes Feliz Shen MD LAB BODY FLUIDS AND S TOOLS ORDERABLES Final Result [facility] [address] Department of Laboratories [place], [place] [id number] [facility] * Screening Mammogram Bilateral W Kwan [...] MAMMOGRAM BILATERAL W KWAN ORDERING HEALTHCARE PROVIDER: FELIZ SHEN HISTORY: Routine [...] Most Recently Relevant to Health Maintenance Insurance [facility] [place] [id number] Care Teams Staff Development Coordinator Rn Relationship Specialty Start Date End Date Familia Pacheco MD [address] [place] [address] PCP - General Family Medicine 06/26/17
--- OUTSIDE RECORDS SUMMARY | 2024-08-03 08:55 | XMS_ITS | Clinical Summary ---
Author Organization [facility] Address [address] [place] [address] Care Team Providers Care 911 Operator Name Role Phone Unavailable Primary Care Provider Unavailabl e Source Comments [facility],non-owned Affiliates and Associated Physician Practices is amultiple site organization consisting of ambulatory clinics and hospital sitesin [place], [place], [place] and [place]. This disclosure is being madepursuant to the Care Everywhere program and may not contain all information available regarding this patient. Last updated 18.[facility] [employer] Allergies No known active allergies Medications * [...] this topic Medical Devices Implanted Type Area Utilization Management Um Nurse Device Identifier Shelf Expiration Date Model / Serial / Lot Slnt Dura Duraseal Pg Trilysine Amine 5 Implanted:Qty: 1 on 11/20/2021 by Alexander Lorenzo MD at [facility] N/A: Spine Lumbar Integra [employer] Leydi 03/07/2023 [id number] / / [id number] Graft Tissue Drgn + Bvn Clgn Mtrx 2x2in Implanted:Qty: 1 on 11/20/2021 by Alexander Lorenzo MD at [facility] N/A: Spine Lumbar Integra [employer] 09/05/2024 [id number] / / [id number] Procedures Procedure Name Priority Date/Time Associated Diagnosis Comments BASIC METABOLIC PANEL (CALCIUM TOTAL) STAT 11/22/2021 7:45 AM CDT from Last 3 Months or Most Recently Relevant to Health Maintenance Results * (ABNORMAL) BASIC METABOLIC PANEL (CALCIUM TOTAL) (11/22/2021 7:45 AM CDT) BUN 7 7 - 26 mg/dL 11/22/2021 8:15 AM [facility] Creatinine 0.60 0.56 - 0.96 mg/dL 11/22/2021 8:15 AM [facility] Sodium 141 136 - 145 mmol/L 11/22/2021 8:15 AM [facility] Potassium 3.5 3.5 - 4.5 mmol/L 11/22/2021 8:15 AM [facility] Chloride 103 98 - 107 mmol/L 11/22/2021 8:15 AM [facility] CO2 30(H) 22 - 29 mmol/L 11/22/2021 8:15 AM [facility] Glucose 99 70 - 115 mg/dL 11/22/2021 8:15 AM [facility] Calcium 8.7 8.4 - 10.2 mg/dL 11/22/2021 8:15 AM [facility] Anion Gap 12 8 - 18 11/22/2021 8:15 AM [facility] BUN/Creatinine Ratio 12 7 - 23 11/22/2021 8:15 AM [facility] Osmolality Calculated 290 270 - 300 mOsm/kg 11/22/2021 8:15 AM [facility] eGFR by CKD-EPI >90 >=90 mL/min/1.7 3 m2 11/22/2021 8:15 AM [facility] Blood BLOOD SPECIMEN / Unknown Lab Venipuncture / Unknown 11/22/2021 7:45 AM CDT 11/22/2021 7:51 AM T Alexander Lorenzo MD LAB - CHEMISTRY MARY TAVERAS [facility] Organization Address City/State/ZIP Co de Phone Number [facility] [address] [place] [address], [facility] [phone] from Last 3 Months or Most Recently Relevant to Health Maintenance Advance Directives * Full Code (Latest Code Status on File) Date Activated Date Inactivated Comments 11/20/2021 4:34 PM 11/22/2021 3:37 PM
--- OUTSIDE RECORDS SUMMARY | 2024-08-03 08:55 | XMS_ITS | Clinical Summary ---
Author Organization [facility] Address [address] [place] [address] Phone Care Team Providers Care Desilverizer Name Role Phone WILLIAM TOLEDO, GENO Primary Care Provider [phone] J CARLOS LANGSTON MD Unavailable [phone] Reason for Visit and Chief [...] On 2 2:13PM By LUZ BENAVIDES ; [facility] New / Renewed during this visit MAKAYLA HAMILTON on 11/14/2021 Pregabalin 75 MG Oral Capsule Provider: MAKAYLA LANE 14 day supply: 28 capsule, 0 refills Diagnosis: Radiculopathy, lumbar region 1 CAPSULE TWO TIMES A DAY Pharmacy: [facility] [address], [phone] - Last Documented On 2 2:23PM By LUZ BENAVIDES ; [facility] Current Medications (continue as prescribed) Pregabalin 150 MG Oral Capsule 10/11/2021 Provider: MAKAYLA LANE Diagnosis: Radiculopathy, l umbar region 1 CAPSULE TWO TIMES A DAY Last Documented On 2 9:18AM [facility] ; [facility] Phentermine HCl 30 MG Oral Capsule 09/29/2021 Provid er: GENO THOMAS MD Diagnosis: Last Documented On 2 9:15AM By LUZ NOLANDSANDY ; [facility] Meloxicam 15 MG Oral Tablet 09/27/2021 Provider: Diagnosis: As needed. 1 every 2-3 days. Last Documented On 2 9:15AM By LUZ BENAVIDES ; [facility] Oxybutynin Chloride ER 10 MG Oral Tablet Extended Release 24 Hour 09/27/2021 Provider: GENO THOMAS MD Diagnosis: Last Documented On 2 9:15AM By LUZ BENAVIDES ; [facility] HYDROcodone-Acetaminophen 5- 325 MG Oral Tablet 09/27/2021 Provider: GENO THOMAS MD Diagnosis: 1 tablet by mouth every 4 hours as needed for pa in. Last Documented On 2 9:15AM By [facility] ; [facility] Medications Administered Includes: Administered Medications from this encounter No Administered Medications Recorded Results Includes: Results discussed during this encounter No Results Recorded For Specified Dates History of Present Illness Includes: History of Present Illness from this encounter No History of Present Illness Recorded Social History Description Last Updated Tobacco non-user 10/11/2021 Last Documented On 2 12:33PM ; [facility] Difficulty walking 10/11/2021 Last Documented On 2 12:33PM ; [facility] Drug use 10/11/2021 Last Documented On 2 12:33PM ; [facility] No consumption of alcohol 10/11/2021 Last Documented On 2 12:33PM ; [facility] Type: Marijuana 10/11/2021 Last Documented On 2 12:33PM ; [facility] Smoking Status Unknown Procedures and Surgical History Surgical History Last Updated No Pacemaker 10/11/2021 Last Documented On 2 12:33PM ; [facility] Medical History Includes: Medical History addressed during this encounter Description Last Updated Denies a fear of falling. 10/11/2021 Last Documented On 2 12:33PM ; [facility] Has had a fall in the last 12 months. Last Documented On 2 12:33PM ; [facility] CT/MRI September 2021lower back butt 022 Last Documented On 2 12:33PM ; [facility] Moderate to severe pain 10/11/2021 Last Documented On 2 12:33PM ; [facility] No Pain Pump 10/11/2021 Last Documented On 2 12:33PM ; [facility] No Spinal cord stimulator 10/11/2021 Last Documented On 2 12:33PM ; [facility] Please list all illnesses/co nditions you have been diagnosed with: Stenosis of the spine bulging discs 10/11/2021 Last Documented On 2 12:33PM ; [facility] Please list all surgeries: B ladder tie 2005right foot- plantarfacitistubel 1995gallbladder removed 200710/11/2021 Last Documented On 2 12:33PM ; [facility] Uses a cane for support 10/11/2021 Last Documented On 2 12:33PM ; [facility] X-rays September 2021 lower back butt 2021 Last Documented On 2 12:33PM ; [facility] Family History Includes: Family History addressed [...] Diagnosis * PHONE CALL LUZ DEJESUS APRN-FPA, DIRECTOR OF SOCIAL MEDIA MARKETING-BC 11/14/2021 12:32PM 11:59PM Insurance Includes: Active Insurance Policies Plan Name Member ID Group # Subscriber Relationship Effect isidro Dates 1 - [facility] [id number] MARYAM MOLINA Self Clinical Notes Includes: Clinical Notes from this encounter No Clinical Notes Recorded
--- OUTSIDE RECORDS SUMMARY | 2024-08-03 08:55 | XMS_ITS ---
Care Plan - [facility] Created on: August 03, 2024 MARIAN MOLINAY Osmin : 1965 Sex: Female Author Organization [facility] Address [address] [place] [phone] Phone Care Team Providers Care Multi Site Leasing Consultant Name Role Phone WILLIAM TOLEDO, GENO Primary Care Provider [phone] IVIS TOLEDO, J CARLOS Menard [phone]
--- OUTSIDE RECORDS SUMMARY | 2024-08-03 08:55 | XMS_ITS | Clinical Summary ---
Author Organization [facility] Address [address] [place] [address] Phone Care Team Providers Care Air Brake Tester Name Role Phone WILLIAM TOLEDO, GENO Primary Care Provider [phone] J CARLOS LANGSTON MD Unavailable [phone] Reason for Visit and Chief [...] On 2 2:23PM By LUZ BENAVIDES ; [facility] Pregabalin 150 MG Oral Capsule 10/11/2021 Provider: MAKAYLA LANE Diagnosis: Radiculopathy, l umbar region 1 CAPSULE TWO TIMES A DAY Last Documented On 2 9:18AM By LUZ BENAVIDES ; [facility] Phentermine HCl 30 MG Oral Capsule 09/29/2021 Provid er: GENO THOMAS MD Diagnosis: Last Documented On 2 9:15AM By LUZ BENAVIDES ; [facility] Meloxicam 15 MG Oral Tablet 09/27/2021 Provider: Diagnosis: As needed. 1 every 2-3 days. Last Documented On 2 9:15AM By LUZ BENAVIDES ; [facility] Oxybutynin Chloride ER 10 MG Oral Tablet Extended Release 24 Hour 09/27/2021 Provider: GENO THOMAS MD Diagnosis: Last Documented On 2 9:15AM By LUZ BENAVIDES ; [facility] HYDROcodone-Acetaminophen 5- 325 MG Oral Tablet 09/27/2021 Provider: GENO THOMAS MD Diagnosis: 1 tablet by mouth every 4 hours as needed for pa in. Last Documented On 2 9:15AM By LUZ BENAVIDES ; [facility] Medications Administered Includes: Administered Medications from this encounter No Administered Medications Recorded Results Includes: Results discussed during this encounter No Results Recorded For Specified Dates History of Present Illness Includes: History of Present Illness from this encounter No History of Present Illness Recorded Social History Description Last Updated Tobacco non-user 10/11/2021 Last Documented On 2 1:37PM ; [facility] Difficulty walking 10/11/2021 Last Documented On 2 1:37PM ; [facility] Drug use 10/11/2021 Last Documented On 2 1:37PM ; [facility] No consumption of alcohol 10/11/2021 Last Documented On 2 1:37PM ; [facility] Type: Marijuana 10/11/2021 Last Documented On 2 1:37PM ; [facility] Smoking Status Unknown Procedures and Surgical History Surgical History Last Updated No Pacemaker 10/11/2021 Last Documented On 2 1:37PM ; [facility] Medical History Includes: Medical History addressed during this encounter Description Last Updated Denies a fear of falling. 10/11/2021 Last Documented On 2 1:37PM ; [facility] Has had a fall in the last 12 months. Last Documented On 2 1:37PM ; [facility] CT/MRI September 2021lower back butt Last Documented On 2 1:37PM ; [facility] Moderate to severe pain 10/11/2021 Last Documented On 2 1:37PM ; [facility] No Pain Pump 10/11/2021 Last Documented On 2 1:37PM ; [facility] No Spinal cord stimulator 10/11/2021 Last Documented On 2 1:37PM ; [facility] Please list all illnesses/co nditions you have been diagnosed with: Stenosis of the spine bulging discs 10/11/2021 Last Documented On 2 1:37PM ; [facility] Please list all surgeries: B ladder tie 2005right foot- plantarfacitistubel 1994gallbladder removed 200710/11/2021 Last Documented On 2 1:37PM ; [facility] Uses a cane for support 10/11/2021 Last Documented On 2 1:37PM ; [facility] X-rays September 2021 lower back butt 2021 Last Documented On 2 1:37PM ; [facility] Family History Includes: Family History addressed during [...] Subscriber Relationship Effect isidro Dates 1 - [facility] [id number] MARYAM MOLINA Self Clinical Notes Includes: Clinical Notes from this encounter No Clinical Notes Recorded
--- OUTSIDE RECORDS SUMMARY | 2024-08-03 08:55 | XMS_ITS | Data Portability ---
Author Organization [facility] Address [address] [place] [address] Assessment No assessment recorded. Plan of Treatment Reminders Order Date Submit Date Provider Last Modified By Organization Details Last Modified Time Details Appointments None record ed. Lab HbA1c (hemog lobin A1c), blood 2023 [facility], [address] [place] [address], [place] [address], [place], [address], 11:19:10 lipid panel, serum 2023 [facility], [address] [place] [address], [place] [address], [place], [address], 11:19:04 CBC w/ auto diff 2023 [facility], [address] [place] [address], [place] [address], [place], [address], 11:19:11 vitami n D, 25-hyd rubin, total, serum 2023 [facility], [address] [place] [address], [place] [address], [place], [address], 11:19:12 TSH, ultra- sensit isidro, serum 2023 [facility], [address] [place] [address], [address], [place], [address], 11:19:07 CMP, serum or plasma 2023 [facility], [address], [address], [place], [address], 11:19:05 iron + total iron-b inding capaci ty (TIBC) , serum 2023 [facility], [address], [address], [place], [address], 11:19:08 Referral urogyn ecolog ist referr al 2023 KYLEIGH Kendrick MD, [address], [address], [place], [address], 10:10:45 Procedures None record ed. Surgeries None record ed. Imaging None record ed. Medication Orders Ozempi c 0.25 mg or 0.5 mg (2 mg/1.5 mL) subcut aneous pen inject or [facility]23 [id number], [address], [place], [id number], 16:40:03 Myrbet riq 25 mg tablet ,exten ded releas e 2023 [id number], [address], [place], [id number], 14:43:01 Patient TargetsNo targets recorded. Patient Instructions Encounter Date Encounter Id Patient Instructions Last Modified By Organization Details Last Modified Time 03/29/2024 [id number] A healthy lifestyle: care instructions [email or web address] Not available 03/29/2024 12:55:21 Reason for Referral Urogynecologist Referral for Overactive urinary bladder Referring Physician: Larissa Ellsworth, Family Medicine, Encounter Date: 03/29/2024 Results Created Date Observation Date Name Description Value Unit Range Abnormal Flag Note LastModifiedBy Organization Detail LastModifiedTime 03/29/2003/30/2024 LIPID PANEL cholesterol, total 209 mg/dL 100-19 9 above high normal Not Available [facility] ([facility]) [address] [place], [address], 03/30/2024 11:19:04 03/29/2003/30/2024 LIPID PANEL triglyceride s 47 mg/dL 0-149 Not Available [facility] ([facility]) [address] [place], [address], 03/30/2024 11:19:04 03/29/2003/30/2024 LIPID PANEL HDL cholesterol 74 mg/dL >39 Not Available [facility] ([facility]) [address] [place], [address], 03/30/2024 11:19:04 03/29/2003/30/2024 LIPID PANEL VLDL cholesterol casie 9 mg/dL 5-40 Not Available [facility] ([facility]) [address] [place], [address], 03/30/2024 11:19:04 03/29/2003/30/2024 LIPID PANEL LDL chol calc ([facility]) 126 mg/dL 0-99 above high normal Not Available [facility] ([facility]) [address] [place], [address], 03/30/2024 11:19:04 03/29/2003/30/2024 CMP14 +EGFR glucose 96 mg/dL 70-99 Not Available [facility] ([facility]) [address] [place], [address], 03/30/2024 11:19:05 03/29/2003/30/2024 CMP14 +EGFR BUN 12 mg/dL 6-24 Not Available [facility] ([facility]) [address] [facility], [place], [address], 03/30/2024 11:19:05 03/29/2003/30/2024 CMP14 +EGFR creatinine 0.69 mg/dL 0.57-1 .00 Not Available [facility] ([facility]) [address] [facility], [place], [address], 03/30/2024 11:19:05 03/29/2003/30/2024 CMP14 +EGFR eGFR 101 mL/mi n/1.7 3 >59 Not Available [facility] ([facility]) [address] [facility], [place], [address], 03/30/2024 11:19:05 03/29/2003/30/2024 CMP14 +EGFR BUN/creatini ne ratio 17 -23 Not Available [facility] ([facility]) [address] [facility], [place], [address], 03/30/2024 11:19:05 03/29/2003/30/2024 CMP14 +EGFR sodium 139 mmol/ L 134-14 4 Not Available [facility] ([facility]) [address] [facility], [place], [address], 03/30/2024 11:19:05 03/29/2003/30/2024 CMP14 +EGFR potassium 4.0 mmol/ L 3.5-5. 2 Not Available [facility] ([facility]) [address] [facility], [place], [address], 03/30/2024 11:19:05 03/29/2003/30/2024 CMP14 +EGFR chloride 101 mmol/ L 96-106 Not Available [facility] ([facility]) [address] [facility], [place], [address], 03/30/2024 11:19:05 03/29/2003/30/2024 CMP14 +EGFR carbon dioxide, total 25 mmol/ L 20- Not Available [facility] ([facility]) [address] [place], [address], 03/30/2024 11:19:05 03/29/2003/30/2024 CMP14 +EGFR calcium 9.1 mg/dL 8.7-10 .2 Not Available [facility] ([facility]) [address] [facility], [place], [address], 03/30/2024 11:19:05 03/29/2003/30/2024 CMP14 +EGFR protein, total 7.0 g/dL 6.0-8. 5 Not Available [facility] ([facility]) [address] [facility], [place], [address], 03/30/2024 11:19:05 03/29/2003/30/2024 CMP14 +EGFR albumin 4.1 g/dL 3.8-4. 9 Not Available [facility] ([facility]) [address] [place], [address], 03/30/2024 11:19:05 03/29/2003/30/2024 CMP14 +EGFR globulin, total 2.9 g/dL 1.5-4. 5 Not Available [facility] ([facility]) [address] [place], [address], 03/30/2024 11:19:05 03/29/2003/30/2024 CMP14 +EGFR bilirubin, total 0.5 mg/dL 0.0-1. 2 Not Available [facility] ([facility]) [address] [place], [address], 03/30/2024 11:19:05 03/29/2003/30/2024 CMP14 +EGFR alkaline phosphatase 119 IU/L 44-121 Not Available [facility] ([facility]) [address] [facility], [place], [address], 03/30/2024 11:19:05 03/29/2003/30/2024 CMP14 +EGFR AST (SGOT) 18 IU/L 0-40 Not Available [facility] ([facility]) [address] [facility], [place], [address], 03/30/2024 11:19:05 03/29/2003/30/2024 CMP14 +EGFR ALT (SGPT) 14 IU/L 0-32 Not Available [facility] ([facility]) [address] [facility], [place], [address], 03/30/2024 11:19:05 03/29/2003/30/2024 TSH RFX ON ABNOR MAL TO FREE T4 TSH 2.060 uIU/m L 0.450- 4.500 Not Available [facility] ([facility]) [address] [place], [address], 03/30/2024 11:19:07 03/29/2003/30/2024 IRON AND TIBC iron bind.cap.(TI BC) 234 ug/dL 250-45 0 below low normal Not Available [facility] ([facility]) [address] [facility], [place], [address], 03/30/2024 11:19:08 03/29/2003/30/2024 IRON AND TIBC UIBC 147 ug/dL 131-42 5 Not Available [facility] ([facility]) [address] [place], [address], 03/30/2024 11:19:08 03/29/2003/30/2024 IRON AND TIBC iron 87 ug/dL 27-159 Not Available [facility] ([facility]) [address] [place], [address], 03/30/2024 11:19:08 03/29/2003/30/2024 IRON AND TIBC iron saturation 37 % 15-55 Not Available [facility] ([facility]) [address] [facility], [place], [address], 03/30/2024 11:19:08 03/29/2003/30/2024 HEMOG LOBIN A1C hemoglobin A1C 5.9 % 4.8-5. 6 above high normal Predi abete s: 5.7 - 6.4 Diabe gabe: >6.4 Glyce skip contr ol for adult s with diabe gabe: <7.0 Not Available [facility] ([facility]) [address] [facility], [place], [address], 03/30/2024 11:19:09 03/29/2003/30/2024 CBC WITH DIFFE RENTI AL/PL ATELE T WBC 5.2 x10e3 /uL 3.4-10 .8 Not Available [facility] ([facility]) [address] [facility], [place], [address], 03/30/2024 11:19:11 03/29/2003/30/2024 CBC WITH DIFFE RENTI AL/PL ATELE T RBC 4.58 x10e6 /uL 3.77-5 .28 Not Available [facility] ([facility]) [address] [facility], [place], [address], 03/30/2024 11:19:11 03/29/2003/30/2024 CBC WITH DIFFE RENTI AL/PL ATELE T hemoglobin 13.3 g/dL 11.1-1 5.9 Not Available [facility] ([facility]) [address] [place], [address], 03/30/2024 11:19:11 03/29/2003/30/2024 CBC WITH DIFFE RENTI AL/PL ATELE T hematocrit 42.0 % 34.0-4 6.6 Not Available [facility] ([facility]) [address] [facility], [place], [address], 03/30/2024 11:19:11 03/29/2003/30/2024 CBC WITH DIFFE RENTI AL/PL ATELE T MCV 92 fL 79-97 Not Available [facility] ([facility]) [address] [facility], [place], [address], 03/30/2024 11:19:11 03/29/2003/30/2024 CBC WITH DIFFE RENTI AL/PL ATELE T MCH 29.0 pg 26.6-3 3.0 Not Available [facility] ([facility]) [address] [facility], [place], [address], 03/30/2024 11:19:11 03/29/2003/30/2024 CBC WITH DIFFE RENTI AL/PL ATELE T MCHC 31.7 g/dL 31.5-3 5.7 Not Available [facility] ([facility]) [address] [facility], [place], [address], 03/30/2024 11:19:11 03/29/2003/30/2024 CBC WITH DIFFE RENTI AL/PL ATELE T RDW 13.8 % 11.7-1 5.4 Not Available [facility] ([facility]) [address] [facility], [place], [address], 03/30/2024 11:19:11 03/29/2003/30/2024 CBC WITH DIFFE RENTI AL/PL ATELE T platelets 246 x10e3 /uL 150-45 0 Not Available [facility] ([facility]) [address] [facility], [place], [address], 03/30/2024 11:19:11 03/29/2003/30/2024 CBC WITH DIFFE RENTI AL/PL ATELE T neutrophils 54 % notest ab. Not Available [facility] ([facility]) [address] [facility], [place], [address], 03/30/2024 11:19:11 03/29/2003/30/2024 CBC WITH DIFFE RENTI AL/PL ATELE T lymphs 35 % notest ab. Not Available [facility] ([facility]) [address] [facility], [place], [address], 03/30/2024 11:19:11 03/29/2003/30/2024 CBC WITH DIFFE RENTI AL/PL ATELE T monocytes 8 % notest ab. Not Available [facility] ([facility]) [address] [facility], [place], [address], 03/30/2024 11:19:11 03/29/2003/30/2024 CBC WITH DIFFE RENTI AL/PL ATELE T eos 2 % notest ab. Not Available [facility] ([facility]) [address] [facility], [place], [address], 03/30/2024 11:19:11 03/29/2003/30/2024 CBC WITH DIFFE RENTI AL/PL ATELE T basos 1 % notest ab. Not Available [facility] ([facility]) [address] [facility], [place], [address], 03/30/2024 11:19:11 03/29/2003/30/2024 CBC WITH DIFFE RENTI AL/PL ATELE T neutrophils (absolute) 2.9 x10e3 /uL 1.4-7. 0 Not Available [facility] ([facility]) [address] [facility], [place], [address], 03/30/2024 11:19:11 03/29/2003/30/2024 CBC WITH DIFFE RENTI AL/PL ATELE T lymphs (absolute) 1.8 x10e3 /uL 0.7-3. 1 Not Available [facility] ([facility]) [address] [facility], [place], [address], 03/30/2024 11:19:11 03/29/2003/30/2024 CBC WITH DIFFE RENTI AL/PL ATELE T monocytes(ab solute) 0.4 x10e3 /uL 0.1-0. 9 Not Available [facility] ([facility]) [address] [facility], [place], [address], 03/30/2024 11:19:11 03/29/20 24 03/30/2024 CBC WITH DIFFE RENTI AL/PL ATELE T eos (absolute) 0.1 x10e3 /uL 0.0-0. 4 Not Available [facility] ([facility]) [address] [facility], [place], [address], 03/30/2024 11:19:11 03/29/2003/30/2024 CBC WITH DIFFE RENTI AL/PL ATELE T baso (absolute) 0.0 x10e3 /uL 0.0-0. 2 Not Available [facility] ([facility]) [address] [place], [address], 03/30/2024 11:19:11 03/29/20 24 03/30/2024 CBC WITH DIFFE RENTI AL/PL ATELE T immature granulocytes 0 % notest ab. Not Available [facility] ([facility]) [address] [facility], [place], [address], 03/30/2024 11:19:11 03/29/20 24 03/30/2024 CBC WITH DIFFE RENTI AL/PL ATELE T immature grans (abs) 0.0 x10e3 /uL 0.0-0. 1 Not Available [facility] ([facility]) [address] [place], [address], 03/30/2024 11:19:11 03/29/20 24 03/30/2024 VITAM IN [...] D. Mac ortiz [place]: [facility] . 2. Santos conde MF, Zi guadarrama [place], Bisch off-F errar i GUZMAN, et al. Evalu ation , treat ment, and preve ntion of vitam in D defic iency : an Endoc rine Socie ty clini casie pract ice guide line. JCEM. 2010; 96(7) :1911 -30. Not Available [facility] ([facility]) [address] [facility], [place], [address], 03/30/2024 11:19:12 Result Notes None recorded. Problems [...] Address Organization Details Last Updated DateTime 4 [address]00.0 5 g 31 kg/m2 177.8 cm 98 % 98 % 18 /min 97.4 [degF] 120 mm[Hg] 78 mm[Hg] Odalis Carlton MA [facility] 12:15:26 Social History Question Answer Notes LastModified by Organizat ion Details LastModified Time Tobacco Smoking Status Never Smoker Odalis Carlton MA null, [facility] 03/29/2024 12:13:58 What Was The Date Of [...] SNOMED-CT Code Diagnosis ICD10 Code Diagnosis Note [id number] VICKY Ferro [facility] (Adult Med) [address] [place] [address] 03/29/2024 11:55:32 03/30/2024 11:21:36 Body mass index 30+ - obesity 852626953 Z68.30 Obesity 117076982 E66.9 labs ordered Overactive urinary bladder 366152971 N32.81 surgery 20 years agostill having incontinen [...] Ahuja Member ID Guarantor Name 03/29/2024 1 [facility] [employer] CHOICE POS II (POS) Johnny Luevano [id number] Jessica Luevano Notes Date Note Type Note [...] oxybutynin Larissa Ellsworth PA-C Attn: Accounting,[address] [facility], [place], [address], [facility] 03/29/2024 14:58:26 OBGyn Episode No OBEpisode recorded.
--- OUTSIDE RECORDS SUMMARY | 2024-08-03 08:55 | XMS_ITS | Clinical Summary ---
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
--- OUTSIDE RECORDS SUMMARY | 2024-08-03 08:55 | XMS_ITS | Patient Health Summary ---
Author Organization [facility] Address [address] [place] [address] Care Team Providers Care Spot Welder Body Assembly Name Role Phone Unavailable Primary Care Provider Unavailabl e Note from [facility],non-owned Affiliates and Associated Physician Practices is amultiple site organization consisting of ambulatory clinics and hospital sitesin [place], [place], [place] and [place]. This disclosure is being madepursuant to the Care Everywhere program and may not contain all information available regarding this patient. Last updated 18.[facility] Allergies No known active allergies Medications * [...] times daily 1 refill by 11/22/2022 * itfvdajujo-uqqeeywyrbcuv-whqpaobj (FIORICET) 50-325-40 MG tablet(Started 11/22/2021) Take 1 [...] PM CDT Medical Devices Implanted Type Area Appellate Court Clerk Device Identifier Shelf Expiration Date Model / Serial / Lot Slnt Dura Duraseal Pg Trilysine Amine 5 Implanted:Qty: 1 on 11/20/2021 by Alexander Lorenzo MD at [facility] N/A: Spine Lumbar Integra [employer] Leydi 03/07/2023 [id number] / / [id number] Graft Tissue Drgn + Bvn Clgn Mtrx 2x2in Implanted:Qty: 1 on 11/20/2021 by Alexander Lorenzo MD at [facility] N/A: Spine Lumbar Integra [employer]iences 09/05/2024 [id number] / / [id number] Procedures * BASIC METABOLIC PANEL (CALCIUM TOTAL)(Performed [...] resultswithin the time period is included. Pathologist [facility] WBC 3.8 3.5 - 10.5 10 3/uL 11/22/2021 8:03 AM CDT [facility] RBC 4.16 3.80 - 5.20 10 6/uL 11/22/2021 8:03 AM CDT [facility] Hemoglobin 12.1 12.0 - 15.6 g/dL 11/22/2021 8:03 AM [facility] Hematocrit 37.6 35.0 - 45.0 % 11/22/2021 8:03 AM [facility] MCV 90.4 80.7 - 98.3 fL 11/22/2021 8:03 AM [facility] MCH 29.1 26.7 - 34.0 pg 11/22/2021 8:03 AM [facility] MCHC 32.2 30.8 - 35.9 g/dL 11/22/2021 8:03 AM [facility] Platelet Count 185 150 - 400 10 3/uL 11/22/2021 8:03 AM [facility] RDW-SD 49.0 36.0 - 50.0 fL 11/22/2021 8:03 AM [facility] RDW-CV 14.8 11.2 - 14.8 % 11/22/2021 8:03 AM [facility] MPV 11.4 9.4 - 12.9 fL 11/22/2021 8:03 AM [facility] nRBC Absolute 0.00 0 10 3/uL 11/22/2021 8:03 AM [facility] nRBC Auto 0.0 0 /100 WBC 11/22/2021 8:03 AM [facility] Neutrophils % 51.6 35.0 - 70.0 % 11/22/2021 8:03 AM [facility] Lymphocytes % 32.8 20.0 - 43.0 % 11/22/2021 8:03 AM [facility] Monocytes % 12.2 5.0 - 13.0 % 11/22/2021 8:03 AM [facility] Eosinophils % 2.1 0.0 - 6.0 % 11/22/2021 8:03 AM [facility] Basophil % 0.5 0.0 - 2.0 % 11/22/2021 8:03 AM [facility] Neutrophils Absolute 1.95 1.60 - 7.00 10 3/uL 11/22/2021 8:03 AM CDT [facility] Lymphocyte Absolute 1.24 1.10 - 3.90 10 3/uL 11/22/2021 8:03 AM [facility] Monocytes Absolute 0.46 0.26 - 1.07 10 3/uL 11/22/2021 8:03 AM [facility] Eosinophils Absolute 0.08 0.00 - 0.47 10 3/uL 11/22/2021 8:03 AM [facility] Basophils Absolute 0.02 0.00 - 0.08 10 3/uL 11/22/2021 8:03 AM [facility] Immature Granulocytes % 0.8 0.0 - 1.0 % 11/22/2021 8:03 AM [facility] Immature Granulocytes Absolute 0.03 11/22/2021 8:03 AM [facility] Blood BLOOD SPECIMEN / Unknown Lab Venipuncture / Unknown 11/22/2021 7:45 AM CDT 11/22/2021 7:51 AM CDT Alexander Lorenzo MD LAB - HEMATOLOGY ORD ERABLES [facility] [address] [place] [address], [facility] [phone] * (ABNORMAL) BASIC METABOLIC PANEL (CALCIUM TOTAL) (11/22/2021 7:45 AM CDT) Only the most recent of2 resultswithin the time period is included. BUN 7 7 - 26 mg/dL 11/22/2021 8:15 AM [facility] Creatinine 0.60 0.56 - 0.96 mg/dL 11/22/2021 8:15 AM [facility] Sodium 141 136 - 145 mmol/L 11/22/2021 8:15 AM [facility] Potassium 3.5 3.5 - 4.5 mmol/L 11/22/2021 8:15 AM [facility] Chloride 103 98 - 107 mmol/L 11/22/2021 8:15 AM [facility] CO2 30(H) 22 - 29 mmol/L 11/22/2021 8:15 AM [facility] Glucose 99 70 - 115 mg/dL 11/22/2021 8:15 AM CDT [facility] Calcium 8.7 8.4 - 10.2 mg/dL 11/22/2021 8:15 AM CDT [facility] Anion Gap 12 8 - 18 11/22/2021 8:15 AM CDT [facility] BUN/Creatinine Ratio 12 7 - 23 11/22/2021 8:15 AM CDT [facility] Osmolality Calculated 290 270 - 300 mOsm/kg 11/22/2021 8:15 AM T [facility] eGFR by CKD-EPI >90 >=90 mL/min/1.7 3 m2 11/22/2021 8:15 AM CDT [facility] Blood BLOOD SPECIMEN / Unknown Lab Venipuncture / Unknown 11/22/2021 7:45 AM CDT 11/22/2021 7:51 AM CDT Alexander Lorenzo MD LAB - CHEMISTRY ORDE RABLES Performing Organization Address [facility] Co de Phone Number [facility] [address] [place] [phone], [facility] [phone] * FL TIAN SURGERY (11/20/2021 12:33 PM CDT) Narrative [facility] - 11/20/2021 12:46 PM CDT Fluoroscopy was used for this exam in the OR. Please see the Operative report. Alexander Lorenzo MD FLUOROSCOPY ORDERABL ES Performing Organization Address [facility] Co de Phone Number [facility] * ETT LINE PERFORMABLE (11/20/2021 10:45 AM CDT) Narrative Estevan Mobley Anes Asst - 11/20/2021 10:45 AM CDT Estevan Mobley Anes Asst 11/20/2021 10:48 AM Endotracheal Tube Placement: Patient Location: OR. Intubation Event Date/Time: 11/20/2021 9:42 AM Procedure: intubation ([id number]). Procedure Section: Sedation: under general anesthesia. Indications [...] A POS 11/20/2021 9:4 7 AM CDT [facility] Blood Bank BLOOD SPECIMEN / Unknown Lab Venipuncture / Unknown 11/20/2021 8:50 AM CDT 11/20/2021 8:52 AM CDT Provider Unknown LAB - BLOOD BANK ORD ERABLES [facility] [address] [place] [address], [facility] [phone] * TYPE + SCREEN PANEL (11/20/2021 8:35 AM CDT) Antibody Screen NEG 9:36 AM CDT [facility] ABO Rh A POS 11/20/2021 9:36 AM CDT [facility] Blood Bank BLOOD SPECIMEN / Unknown Venipuncture / Unknown 11/20/2021 8:35 AM CDT 11/20/2021 8:42 AM CDT Alexander Lorenzo MD LAB - BLOOD BANK ORD ERABLES Performing Organization Address [facility] Co de Phone Number [facility] [address] [place] [address], [facility] [phone] * PTT [facility] (11/13/2021 1:02 PM CDT) APTT 26.4 23.0 - 38.4 Seconds 11/13/2021 1:56 PM CDT [facility] Comment:Suggested therapeuti c range for full dose I.V. unfractionated heparin therapy for venous thromboembolism is 71 to 109 seconds. Blood BLOOD SPECIMEN / Unknown Lab Venipuncture / Unknown 11/13/2021 1:02 PM CDT 11/13/2021 1:28 PM CDT Alexander Lorenzo MD LAB - COAGULATION OR DERABLES Performing Organization Address [facility] Co de Phone Number [facility] [address] [place] [address], [facility] [phone] * PT-INR [facility] (11/13/2021 1:02 PM CDT) PT 12.6 12.1 - 14.8 Seconds 11/13/2021 1:56 PM CDT [facility] INR 1.0 See Comment 11/13/2021 1:56 PM CDT [facility] Comment:The suggested therap eutic range for standard coumadin (warfarin) therapy is an INR of 2.0-3.0. For high-risk patients (Mechanical Mitral Valve Prosthesis, etc.), the suggested prophylactic therapeutic range is an INR of 2.5-3.5. Blood BLOOD SPECIMEN / Unknown Lab Venipuncture / Unknown 11/13/2021 1:02 PM CDT 11/13/2021 1:28 PM CDT Alexander Lorenzo MD LAB - COAGULATION OR DERABLES Performing Organization Address [facility] Co de Phone Number [facility] [address] [place] [phone], [facility] [phone] * XR CHEST 2VW (11/13/2021 12:50 PM CDT) Anatomical Region Laterality Modality Chest Radiographic Idania ging 11/13/2021 3:17 PM CDT Impressions 11/14/2021 2:12 AM CDT IMPRESSION: No acute pulmonary process. Report dictated by Aydin Arzola DO (chairman president and chief executive officer). Dr. GERALDINE Hargrove have personally reviewed and [...] process. Report dictated by Aydin Arzola DO (chairman president and chief executive officer). Dr. GERALDINE Hargrove have personally reviewed and [...] (Bezet) 469 ms SL MUSE Calculated P [place] 70 degrees SLH MUSE Calculated R [place] 53 degrees SLH MUSE Calculated T [place] 51 degrees SLH MUSE Interpretation EKG NORMAL SINUS RHYTHM NORMAL ECG NO PREVIOUS ECGS AVAILABLE Confirmed by Kenneth Bautista ([id number]) on 11/15/2021 8:36:16 AM [facility] 11/13/2021 11:4 9 AM CDT 11/15/2021 8:36 AM CDT Alexander Lorenzo MD ECG ORDERABLES [facility]
--- OUTSIDE RECORDS SUMMARY | 2024-08-03 08:55 | XMS_ITS | Referral Summary ---
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 Gender Identity Not on file Sexual Orientation Not on file Last Filed Vital Signs Vital Sign Reading Time Taken Comments Blood Pressure 112/80 04/08/2024 1:57 PM CDT Pulse 79 08/02/2021 2:21 PM METAL MOULDER'S ASSISTANT Temperature 36.3 C (97.3 F) 10/08/2020 9:51 [...] HPV HR 16 Not Detected Not Detected [facility] Comment:Testing performed by : [facility], [address] [place] [address] HPV HR 18 Not Detected Not Detected MAIRA ESPARZA Comment:Testing performed by : [facility], [address] [place]., [address] HPV HR Non 16/18 Not Detected Not [...] test have been verified by the [facility] Molecular Infectious Disease laboratory. Correlate with separately reported cytology results, as applicable. Interpretive data last revised 22 Testing performed by: [facility], [address] [place]., [address] Endocervical 04/08/2024 3:12 PM CDT 04/11/2024 2:01 PM METAL MOULDER'S ASSISTANT Narrative MAIRA Cole 04/12/2024 5:06 AM METAL MOULDER'S ASSISTANT Clinical history and diagnosis->DX Z12.4 Testing type->Screening Last menstrual period (date if known)->N/A Menstrual status->Postmenopausal Previous negative PAP?->Yes Feliz Shen MD LAB BODY FLUIDS AND S TOOLS ORDERABLES Final Result [facility] [address] Department [place] [address] [facility] * Screening Mammogram Bilateral W Kwan [...] Most Recently Relevant to Health Maintenance Insurance [facility] [id number] Care Teams Reimbursement Specialist Relationship Specialty Start Date End Date Familia Pacheco MD [address] [place] [address] PCP - General Family Medicine 06/26/17
--- OUTSIDE RECORDS SUMMARY | 2024-08-03 08:55 | XMS_ITS | Referral Summary ---
Author Organization [facility] Address [address] [place] [address] Care Team Providers Care Snowmobile Mechanic Name Role Phone Unavailable Primary Care Provider Unavailabl e Source Comments [facility],non-owned Affiliates and Associated Physician Practices is amultiple site organization consisting of ambulatory clinics and hospital sitesin [place], [place], [place] and [place]. This disclosure is being madepursuant to the Care Everywhere program and may not contain all information available regarding this patient. Last updated 18.[facility] Allergies No known active allergies Medications * [...] on file Medical Devices Implanted Type Area Luncheonette Operator Device Identifier Shelf Expiration Date Model / Serial / Lot Slnt Dura Duraseal Pg Trilysine Amine 5 Implanted:Qty: 1 on 11/20/2021 by Alexander Lorenzo MD at [facility] N/A: Spine Lumbar Integra [employer] Leydi 03/07/2023 [id number] / / [id number] Graft Tissue Drgn + Bvn Clgn Mtrx 2x2in Implanted:Qty: 1 on 11/20/2021 by Alexander Lorenzo MD at [facility] N/A: Spine Lumbar Integra [employer] 09/05/2024 [id number] / / [id number] Procedures Procedure Name Priority Date/Time Associated Diagnosis Comments BASIC METABOLIC PANEL (CALCIUM TOTAL) STAT 11/22/2021 7:45 AM CDT from Last 3 Months or Most Recently Relevant to Health Maintenance Results * (ABNORMAL) BASIC METABOLIC PANEL (CALCIUM TOTAL) (11/22/2021 7:45 AM CDT) BUN 7 7 - 26 mg/dL 11/22/2021 8:15 AM [facility] Creatinine 0.60 0.56 - 0.96 mg/dL 11/22/2021 8:15 AM [facility] Sodium 141 136 - 145 mmol/L 11/22/2021 8:15 AM [facility] Potassium 3.5 3.5 - 4.5 mmol/L 11/22/2021 8:15 AM [facility] Chloride 103 98 - 107 mmol/L 11/22/2021 8:15 AM [facility] CO2 30(H) 22 - 29 mmol/L 11/22/2021 8:15 AM [facility] Glucose 99 70 - 115 mg/dL 11/22/2021 8:15 AM [facility] Calcium 8.7 8.4 - 10.2 mg/dL 11/22/2021 8:15 AM [facility] Anion Gap 12 8 - 18 11/22/2021 8:15 AM [facility] BUN/Creatinine Ratio 12 7 - 23 11/22/2021 8:15 AM [facility] Osmolality Calculated 290 270 - 300 mOsm/kg 11/22/2021 8:15 AM [facility] eGFR by CKD-EPI >90 >=90 mL/min/1.7 3 m2 11/22/2021 8:15 AM [facility] Blood BLOOD SPECIMEN / Unknown Lab Venipuncture / Unknown 11/22/2021 7:45 AM CDT 11/22/2021 7:51 AM CDT Alexander Lorenzo MD LAB - CHEMISTRY MARY TAVERAS [facility] Organization Address City/State/ZIP Co de Phone Number [facility] [address] [place] [address], [facility] [phone] from Last 3 Months or Most Recently Relevant to Health Maintenance Advance Directives * Full Code (Latest Code Status on File) Date Activated Date Inactivated Comments 11/20/2021 4:34 PM 11/22/2021 3:37 PM
--- OUTSIDE RECORDS SUMMARY | 2024-08-03 08:55 | XMS_ITS ---
Author Organization [facility] Address [address] [place] [address] Phone Care Team Providers Care Black Ash Burner Operator Name Role Phone WILLIAM TOLEDO, GENO Primary Care Provider [phone] IVIS TOLEDO, J CARLOS Spaulding Unavailable [phone] Plan of Treatment Referrals To Diagnosis Pain Management [facility] - [address] [place] [phone] - Radiculopathy, lumbar region Note: Needs done this week p rior to surgery if possible.Consent for RightTransforaminal Epidural steroid injection at L3-4 and L4-5 under fluorsocopyNo need to hold NSAIDs/ ASA Last Documented On 3 4:52PM ; [facility] Instructions to patient Intervention and counseling on cessation of tobacco use : Patient recieved smoking cessation handout Last Documented On 2 8:23AM ; [facility] Education and Decision Aids were provided during visit for: Pill Count: 45 Hydrocodone 5 /325 Last Documented On 2 9:19AM ; [facility] Assessments Includes: Assessments for all patient encounters Findings Encounter Date Bulging lumbar disc PAIN MANAGEMENT NEW CONSULT with MAKAYLA HAMILTON 10/11/2021 Last Documented On 2 12:03PM ; [facility] DORSALGIA PAIN MANAGEMENT NEW CONSULT with MAKAYLA HAMILTON 10/11/2021 Last Documented On 2 12:03PM ; [facility] Lumbar canal stenosis with n eurogenic claudication PAIN MANAGEMENT NEW CONSULT with NADER HAMILTON-SANDY 10/11/2021 Last Documented On 2 12:03PM ; [facility] Lumbar radiculopathy PAIN MANAGEMENT NEW CONSULT with NADER HAMILTON-BC 10/11/2021 Last Documented On 2 12:03PM ; [facility] Lumbar spondylosis with radiculopathy PA IN MANAGEMENT NEW CONSULT with NADER HAMILTON-BC 10/11/2021 Last Documented On 2 12:03PM ; [facility] Instructions Includes: Instructions for all patient encounters Instructions to patient Intervention and counseling on cessation of tobacco use : Patient recieved smoking cessation handout Last Documented On 2 8:23AM ; [facility] Education and Decision Aids were provided during visit for: Pill Count: 45 Hydrocodone 5 /325 Last Documented On 2 9:19AM ; [facility] Medical Equipment - Implanted Devices Includes: Current and historical Devices No Medical Equipment Recorded Medications Includes: Current and historical Medications Current Medications (continue as prescribed) Pregabalin 75 MG Oral Capsule 11/14/2021 Provider: MAKAYLA LANE Diagnosis: Radiculopathy, l umbar region 1 CAPSULE TWO TIMES A DAY Last Documented On 2 2:23PM By ULZ BENAVIDES ; [facility] Pregabalin 150 MG Oral Capsule 10/11/2021 Provider: MAKAYLA LANE Diagnosis: Radiculopathy, l umbar region 1 CAPSULE TWO TIMES A DAY Last Documented On 2 9:18AM By LUZ BENAVIDES ; [facility] Phentermine HCl 30 MG Oral Capsule 09/29/2021 Provid er: GENO THOMAS MD Diagnosis: Last Documented On 2 9:15AM By LUZ BENAVIDES ; [facility] Meloxicam 15 MG Oral Tablet 09/27/2021 Provider: Diagnosis: As needed. 1 every 2-3 days. Last Documented On 2 9:15AM By LUZ DOE-SANDY ; [facility] Oxybutynin Chloride ER 10 MG Oral Tablet Extended Release 24 Hour 09/27/2021 Provider: GENO THOMAS MD Diagnosis: Last Documented On 2 9:15AM By LUZ DOE-SANDY ; [facility] HYDROcodone-Acetaminophen 5- 325 MG Oral Tablet 09/27/2021 Provider: GENO THOMAS MD Diagnosis: 1 tablet by mouth every 4 hours as needed for pa in. Last Documented On 2 9:15AM By LUZ DOE-SANDY ; [facility] Past Medications on file Pregabalin [...] On 2 2:13PM By LUZ DOE-SANDY ; [facility] Medications Administered Includes: Administered Medications in patient's chart No Administered Medications Recorded Results Includes: Results from 08/03/2023 through 08/03/2024 No Results Recorded For Specified Dates History of Present Illness History of Present Illness not supported for this document type No History of Present Illness Recorded Social History Description Last Updated Tobacco non-user 10/11/2021 Last Documented On 2 12:03PM ; [facility] Difficulty walking 10/11/2021 Last Documented On 2 12:03PM ; [facility] Drug use 10/11/2021 Last Documented On 2 12:03PM ; [facility] No consumption of alcohol 10/11/2021 Last Documented On 2 12:03PM ; [facility] Type: Marijuana 10/11/2021 Last Documented On 2 12:03PM ; [facility] Smoking Status Unknown Procedures and Surgical History Surgical History Last Updated No Pacemaker 10/11/2021 Last Documented On 2 12:03PM ; [facility] Medical History Includes: Medical History in patient's chart Description Last Updated Denies a fear of falling. 10/11/2021 Last Documented On 2 12:03PM ; [facility] Has had a fall in the last 12 months. Last Documented On 2 12:03PM ; [facility] CT/MRI September 2021lower back butt 022 Last Documented On 2 12:03PM ; [facility] Moderate to severe pain 10/11/2021 Last Documented On 2 12:03PM ; [facility] No Pain Pump 10/11/2021 Last Documented On 2 12:03PM ; [facility] No Spinal cord stimulator 10/11/2021 Last Documented On 2 12:03PM ; [facility] Please list all illnesses/co nditions you have been diagnosed with: Stenosis of the spine bulging discs 10/11/2021 Last Documented On 2 12:03PM ; [facility] Please list all surgeries: B ladder tie 2005right foot- plantarfacitistubel 1994gallbladder removed 200710/11/2021 Last Documented On 2 12:03PM ; [facility] Uses a cane for support 10/11/2021 Last Documented On 2 12:03PM ; [facility] X-rays September 2021 lower back butt 2021 Last Documented On 2 12:03PM ; [facility] Family History Includes: Family History in patient's [...] Subscriber Relationship Effect isidro Dates 1 - [facility] [id number] MARYAM MOLINA Self Clinical Notes Includes: Signed Clinical Notes starting from 06/27/2022 No Clinical Notes Recorded
--- NOTE | 2024-08-03 09:04 | ED.ABDPAIN ---
HPI - Abdominal Pain General Chief Complaint: Abdominal Pain Stated Complaint: abd pain Time Seen by Provider: 08/03/24 08:40 Source: patient Mode of arrival: ambulatory Limitations: no limitations History of Present Illness HPI narrative: 58-year-old female with a history of anxiety, status post cholecystectomy, recurrent epigastric pain and gastric reflux, lower extremity lymphedema presents to the ED with -- 4 hour history of right lower quadrant abdominal pain. No nausea/ vomiting. No constipation. No radiation of the pain. No exacerbating or relieving factors. No fever. No dysuria or hematuria. her pain gets worse on weight-bearing patient had recent upper respiratory tract infection MD elicited complaint: abdominal pain Pertinent past history: gastritis Onset (ago): hour(s) ( 4 hours) Pain Consistency: constant Location: RLQ Severity: mild Quality: aching Radiation: none Migration to: no migration Exacerbating factors: movement Relieving factors: nothing Associated symptoms: denies other symptoms Related Data Home Medications ?Medication ?Instructions ?Recorded ?Confirmed ?Last Taken ?Type escitalopram oxalate 10 mg tablet 10 mg PO DAILY 07/21/24 07/21/24 Unknown History esomeprazole magnesium 40 mg 40 mg PO BID 07/21/24 07/21/24 Unknown History capsule,delayed release mirabegron 25 mg tablet,extended 25 mg PO DAILY 07/21/24 07/21/24 Unknown History release 24 hr oxybutynin chloride 15 mg 15 mg PO DAILY 07/21/24 07/21/24 Unknown History tablet,extended release 24 hr topiramate 25 mg tablet 25 mg PO Q12H 07/21/24 07/21/24 Unknown History Allergies Allergy/AdvReac Type Severity Reaction Status Date / Time No Known Allergies Allergy Mild Verified 08/03/24 08:35 Review of Systems Review of Systems: All systems reviewed & are unremarkable except as noted in HPI and below Constitutional: Constitutional: Reports as per HPI and Reports no additional constitutional complaints Eyes: Eyes: Reports as per HPI and Reports no additional eye complaints ENT: Reports system reviewed and no additional complaints, except as documented and Reports as per HPI Cardiovascular: Cardiovascular: Reports as per HPI and Reports no additional cardiovascular complaints Respiratory: Respiratory: Reports as per HPI and Reports no additional respiratory complaints Gastrointestinal: Gastrointestinal: Reports as per HPI and Reports no additional gastrointestinal complaints Comments: right lower quadrant abdominal pain Genitourinary: Genitourinary: Reports no additional female genitourinary complaints and Reports as per HPI Musculoskeletal: Musculoskeletal: Reports no additional musculoskeletal complaints and Reports as per HPI Integumentary/Breasts: Skin/Breast: Reports system reviewed and no additional complaints, except as docu and Reports as per HPI Neurologic: Reports system reviewed and no additional complaints, except as documented and Reports as per HPI Psychiatric: Psychiatric: Reports no additional psychiatric complaints and Reports as per HPI Endocrine: Endocrine: Reports no additional endocrine complaints and Reports as per HPI Hematologic/Lymphatic: Hematologic/Lymphatic: Reports no additional hematologic/lymphatic complaints and Reports as per HPI Allergic/Immunologic: Allergic/Immunologic: Reports no additional allergic/immunologic complaints and Reports as per HPI [facility] Past Medical History Medical History (Updated 08/03/24 @ 10:12 by Abelino Rodriguez MD) Anxiety Surgical History Surgical History History of bladder suspension procedure S/P cholecystectomy Social History Social History Smoking status: Never smoker Alcohol intake: former Substance use: never Substance use type: marijuana Other substance usage details: Gummies for sleep occasionally Living arrangements: with family Gender identity (if verbalized by the patient): Female Spiritual care concerns: No Exam Narrative: afebrile. Blood pressure is stable Const: General: no acute distress Nutritional Appearance: well nourished Orientation/consciousness: patient oriented x3 Limitations: no limitations HENMT: Head: normal to inspection Ears: external ears normal Face/Nose/Sinus: Normal external nose present Face and sinus: normal facial exam Mouth: Yes Normal oral and palatal mucosa present Throat: posterior oropharynx normal Eyes: Conjunctivae: conjunctivae normal Pupils: Equal, round and reactive pupils present EOM: EOMs intact bilaterally Direct Ophthalmoscopy: no photophobia Neck: Neck: normal visual inspection and no lymphadenopathy Chest: Chest palpation & inspection: normal inspection of the chest Resp: Effort & Inspection: normal respiratory effort Auscultation: clear to auscultation bilaterally Cardio: Rate: regular rate Rhythm: regular rhythm GI: GI Palp: Yes Soft to palpation Auscultation: normal bowel sounds Other: right lower quadrant tenderness. No rigidity / rebound. Tenderness right CV angle : General: Yes CVA tenderness Back/Spine/Pelvis: Back: CVA tenderness Skin: General skin exam: normal color Rashes: no rashes Wounds: no wounds Neuro: General: patient oriented x3, moves all extremities, no meningeal signs, no focal motor deficits and CN's II-XI intact bilaterally Cranial nerves: Yes Nystagmus not present Speech: normal speech Gait exam (Neuro): Normal gait present Extrem: General: normal to inspection and no clubbing, cyanosis or edema Psych: Mental Status: mental status grossly normal Affect: normal affect Attitude: cooperative Course Course Emergency Course: right lower quadrant abdominal pain-- abdominal examination revealed minimal tenderness in the right lower quadrant. No rigidity / rebound. Patient has a normal white cell count and a normal lactate. The patient was noted to have 4-6 white blood cells in the urine without any dysuria or hematuria. Would treat as UTI. History of epigastric pain and gastric reflux will treat her with Pepcid Vital Signs Vital signs: Vital Signs Temperature 36.2 C L 08/03/24 08:34 Pulse Rate 88 08/03/24 08:34 Respiratory Rate 18 08/03/24 08:34 Blood Pressure 130/75 08/03/24 08:34 Pulse Oximetry 99 08/03/24 08:34 Oxygen Delivery Room Air 08/03/24 08:34 Temperature 36.2 C L 08/03/24 08:34 Pulse Rate 88 08/03/24 08:34 Respiratory Rate 18 08/03/24 08:34 Blood Pressure 130/75 08/03/24 08:34 Pulse Oximetry 99 08/03/24 08:34 Oxygen Delivery Room Air 08/03/24 08:34 MDM - Abdominal Pain MDM Narrative Medical decision making narrative: abdominal pain UTI PUD/GERD Differential Diagnosis Differential diagnosis: Likely acute appendicitis and calculus of kidney Medical Records Attestation: I reviewed the patient's medical records. Lab Data Attestation: I reviewed the patient's lab results. 08/03/24 09:27 08/03/24 09:27 Labs: Lab Results 08/03/24 08/03/24 Range/Units 08:38 09:27 WBC 6.3 (4.8-10.8) K/mm3 RBC 4.77 (4.20-5.40) M/mm3 Hgb 13.7 (12.0-15.0) g/dL Hct 42.4 (35.0-49.0) % MCV 88.9 (78.0-102.0) fL MCH 28.7 (27.0-31.0) pg MCHC 32.3 (32-36) g/dL RDW 14.9 H (11.6-14.4) % Plt Count 267 (150-420) K/mm3 MPV 10.8 (9.2-11.8) fl Immature Gran % (Auto) 0.5 H (0.0-0.0) % Neut % (Auto) 65.1 (50.0-70.0) % Lymph % (Auto) 23.4 (18.0-42.0) % [place] % (Auto) 9.6 (2.0-11.0) % Eos % (Auto) 1.1 (1.0-6.0) % Baso % (Auto) 0.3 (0.0-1.0) % Lymph # (Auto) 1.46 (1.10-4.50) K/mm3 [place] # (Auto) 0.60 (0.10-0.90) K/mm3 Eos # (Auto) 0.07 (0.02-0.50) K/mm3 Baso # (Auto) 0.02 (0.00-0.10) K/mm3 Abs Immat Gran (auto) 0.03 H (0.00-0.00) K/mm3 Absolute Neuts (auto) 4.07 (1.70-7.20) K/mm3 Absolute Nucleated RBC 0.00 (0.00-0.00) K/mm3 Nucleated RBC % 0.0 (0-0.0) % PT 10.1 (9.50-12.1) Seconds INR 0.9 Sodium 141 (136-145) mmol/L Potassium 4.0 (3.5-5.1) mmol/L Chloride 104 (98-108) mmol/L Carbon Dioxide 30 (21-32) mmol/L Anion Gap 7 (4-12) mmol/L BUN 17 (7-18) mg/dL Creatinine 0.74 (0.55-1.02) mg/dL Estim Creat Clear Calc 92 ml/min Estimated GFR > 60 (59 - ) Glucose 92 (70-99) mg/dL Calculated Osmolality 293 (285-295) mOsm/kg Lactic Acid 0.5 (0.4-2.0) mmol/L Calcium 8.8 (8.5-10.1) mg/dL Total Bilirubin 0.6 (0.00-1.00) mg/dL AST 13 L (15-37) U/L ALT 26 (14-59) U/L Alkaline Phosphatase 118 H (46-116) U/L Total Protein 7.1 (6.4-8.2) g/dL Albumin 3.1 L (3.4-5.0) g/dL Lipase 55 (16-77) U/L Urine Color Light yellow (Yellow) Urine Appearance Clear (Clear) Urine pH 6.5 (5.0-8.0) Ur Specific [place] 1.020 (1.010-1.020) Urine Protein Negative (Negative) Urine Glucose (UA) Negative (Negative) Urine Ketones Negative (Negative) Ur Blood (Man) Negative (Negative) Urine Nitrate Negative (Negative) Urine Bilirubin Negative (Negative) Urine Urobilinogen 0.2 (0.2-1.0) mg/dL Leukocyte Esterase Rfl 1+ H (Negative) ROGERIO/UL Urine RBC None seen (0-2) /hpf Urine WBC 4-6 H (0-3) /hpf Ur Squamous Epith Cells Few (Few) /hpf Urine Bacteria 1+ H (None) /hpf Discharge Plan Discharge Clinical Impression: Chronic GERD Abdominal pain Qualifiers: Abdominal location: right lower quadrant Qualified Code(s): R10.31 - Right lower quadrant pain UTI (urinary tract infection) Qualifiers: Urinary tract infection type: site unspecified Hematuria presence: without hematuria Qualified Code(s): N39.0 - Urinary tract infection, site not specified Patient Disposition: Home, Self-Care Condition: Stable Instructions: Antibiotic Form, Urinary Tract Infection in Women (ED), Abdominal Pain (ED) Patient Language: Czech Prescriptions: New sulfamethoxazole-trimethoprim [Bactrim DS] 800-160 mg tablet 1 tablet PO Q12H Qty: 10 0RF No Action escitalopram oxalate 10 mg tablet 10 mg PO DAILY oxybutynin chloride 15 mg tablet extended release 24hr 15 mg PO DAILY topiramate 25 mg tablet 25 mg PO Q12H esomeprazole magnesium 40 mg capsule,delayed release(DR/EC) 40 mg PO BID mirabegron 25 mg tablet extended release 24 hr 25 mg PO DAILY Follow-up/Referrals: Familia Pacheco MD [Primary Care Provider] - Time of Disposition: 10:13
[2024-08-03 09:27] LABS: Add Urine Microscopic? YES; Appearance Urine Clear (Clear); Bilirubin Urine Negative (Negative); Blood Urine Negative (Negative); Color Urine Light Yellow (Yellow); Glucose Urine UA Negative (Negative); Ketones Urine Negative (Negative); Leukocyte Esterase Ur 1+ LEU/UL (Negative); Nitrate Urine Negative (Negative); Protein Urine Negative (Negative); Urobilinogen Urine 0.2 mg/dL (0.2-1.0); pH Urine 6.5 (5.0-8.0)
[2024-08-03 09:32] LABS: RBC Urine None seen /hpf (0-2); Squamous Epithelial Cell Urine Few /hpf (Few)
[2024-08-03 09:33] LABS: Basophils Absolute Auto 0.02 K/mm3 (0.00-0.10); Basophils Percent Auto 0.3 % (0.0-1.0); Eosinophils Absolute Auto 0.07 K/mm3 (0.02-0.50); Eosinophils Percent Auto 1.1 % (1.0-6.0); Hematocrit 42.4 % (35.0-49.0); Hemoglobin 13.7 g/dL (12.0-15.0); Immature Granulocyte Absolute 0.03 K/mm3 (0.00-0.00); Immature Granulocyte Percent A 0.5 % (0.0-0.0); Lymphocytes Absolute Auto 1.46 K/mm3 (1.10-4.50); Lymphocytes Percent Auto 23.4 % (18.0-42.0); Mean Corpuscular HGB Conc 32.3 g/dL (32-36); Mean Corpuscular Hemoglobin 28.7 pg (27.0-31.0); Mean Corpuscular Volume 88.9 fL (78.0-102.0); Mean Platelet Volume 10.8 fl (9.2-11.8); Monocytes Percent Auto 9.6 % (2.0-11.0); Neutrophils Absolute Auto 4.07 K/mm3 (1.70-7.20); Neutrophils Percent Auto 65.1 % (50.0-70.0); Platelet Count Result 267 K/mm3 (150-420); Red Blood Count 4.77 M/mm3 (4.20-5.40); Red Cell Distribution Width 14.9 % (11.6-14.4); White Blood Count 6.3 K/mm3 (4.8-10.8)
[2024-08-03 09:33] LABS: Bacteria Urine 1+ /hpf
[2024-08-03 09:45] LABS: INR 0.9; Prothrombin Time 10.1 Seconds (9.50-12.1)
--- NOTE | 2024-08-03 09:49 | PC.NURSE ---
PT IS LYING ON STRETCHER TALKING WITH FAMILY AT THIS TIME. PT IS AWAITING LAB RESULTS AT THIS TIME. PT DENIES ANY NEEDS OR COMPLAINTS. BLANKET HAS BEEN PROVIDED. NAD NOTED. WILL CONTINUE TO MONITOR.
[2024-08-03 09:51] LABS: Lactic Acid Reflex 0.5 mmol/L (0.4-2.0)
--- OUTSIDE RECORDS SUMMARY | 2024-08-03 09:58 | XMS_ITS | Clinical Summary ---
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
--- OUTSIDE RECORDS SUMMARY | 2024-08-03 09:58 | XMS_ITS | Clinical Summary ---
Author Organization [facility] Address [address] [place] [address] Care Team Providers Care Escapement Matcher Name Role Phone Unavailable Primary Care Provider Unavailabl e Source Comments [facility],non-owned Affiliates and Associated Physician Practices is amultiple site organization consisting of ambulatory clinics and hospital sitesin [place], [place], [place] and [place]. This disclosure is being madepursuant to the Care Everywhere program and may not contain all information available regarding this patient. Last updated 18.[facility] Allergies No known active allergies Medications * [...] this topic Medical Devices Implanted Type Area Real Estate Firm Manager Device Identifier Shelf Expiration Date Model / Serial / Lot Slnt Dura Duraseal Pg Trilysine Amine 5 Implanted:Qty: 1 on 11/20/2021 by Alexander Lorenzo MD at [facility] N/A: Spine Lumbar Integra [employer] Leydi 03/07/2023 [id number] / / [id number] Graft Tissue Drgn + Bvn Clgn Mtrx 2x2in Implanted:Qty: 1 on 11/20/2021 by Alexander Lorenzo MD at [facility] N/A: Spine Lumbar Integra [employer] 09/05/2024 [id number] / / [id number] Procedures Procedure Name Priority Date/Time Associated Diagnosis Comments BASIC METABOLIC PANEL (CALCIUM TOTAL) STAT 11/22/2021 7:45 AM CDT from Last 3 Months or Most Recently Relevant to Health Maintenance Results * (ABNORMAL) BASIC METABOLIC PANEL (CALCIUM TOTAL) (11/22/2021 7:45 AM CDT) BUN 7 7 - 26 mg/dL 11/22/2021 8:15 AM [facility] Creatinine 0.60 0.56 - 0.96 mg/dL 11/22/2021 8:15 AM [facility] Sodium 141 136 - 145 mmol/L 11/22/2021 8:15 AM [facility] Potassium 3.5 3.5 - 4.5 mmol/L 11/22/2021 8:15 AM [facility] Chloride 103 98 - 107 mmol/L 11/22/2021 8:15 AM [facility] CO2 30(H) 22 - 29 mmol/L 11/22/2021 8:15 AM [facility] Glucose 99 70 - 115 mg/dL 11/22/2021 8:15 AM [facility] Calcium 8.7 8.4 - 10.2 mg/dL 11/22/2021 8:15 AM [facility] Anion Gap 12 8 - 18 11/22/2021 8:15 AM [facility] BUN/Creatinine Ratio 12 7 - 23 11/22/2021 8:15 AM [facility] Osmolality Calculated 290 270 - 300 mOsm/kg 11/22/2021 8:15 AM [facility] eGFR by CKD-EPI >90 >=90 mL/min/1.7 3 m2 11/22/2021 8:15 AM [facility] Blood BLOOD SPECIMEN / Unknown Lab Venipuncture / Unknown 11/22/2021 7:45 AM CDT 11/22/2021 7:51 AM T Alexander Lorenzo MD LAB - CHEMISTRY MARY [facility] Organization Address City/State/ZIP Co de Phone Number [facility] [address] [place] [address], [facility] [phone] from Last 3 Months or Most Recently Relevant to Health Maintenance Advance Directives * Full Code (Latest Code Status on File) Date Activated Date Inactivated Comments 11/20/2021 4:34 PM 11/22/2021 3:37 PM
--- OUTSIDE RECORDS SUMMARY | 2024-08-03 09:58 | XMS_ITS | Patient Health Summary ---
Author Organization [facility] Address [address] [place] [address] Care Team Providers Care Prepress Technician Name Role Phone Unavailable Primary Care Provider Unavailabl e Note from [facility],non-owned Affiliates and Associated Physician Practices is amultiple site organization consisting of ambulatory clinics and hospital sitesin [place], [place], [place] and [place]. This disclosure is being madepursuant to the Care Everywhere program and may not contain all information available regarding this patient. Last updated 18.[facility] Allergies No known active allergies Medications * [...] times daily 1 refill by 11/22/2022 * bwkqzousac-vodyazedmbesa-trhwfyqy (FIORICET) 50-325-40 MG tablet(Started 11/22/2021) Take 1 [...] PM CDT Medical Devices Implanted Type Area Environmental Technology Professor Device Identifier Shelf Expiration Date Model / Serial / Lot Slnt Dura Duraseal Pg Trilysine Amine 5 Implanted:Qty: 1 on 11/20/2021 by Alexander Lorenzo MD at [facility] N/A: Spine Lumbar Integra [employer] Leydi 03/07/2023 [id number] / / [id number] Graft Tissue Drgn + Bvn Clgn Mtrx 2x2in Implanted:Qty: 1 on 11/20/2021 by Alexander Lorenzo MD at [facility] N/A: Spine Lumbar Integra [employer] 09/05/2024 [id number] / / [id number] Procedures * BASIC METABOLIC PANEL (CALCIUM TOTAL)(Performed [...] resultswithin the time period is included. Pathologist [facility] WBC 3.8 3.5 - 10.5 10 3/uL 11/22/2021 8:03 AM CDT [facility] RBC 4.16 3.80 - 5.20 10 6/uL 11/22/2021 8:03 AM CDT [facility] Hemoglobin 12.1 12.0 - 15.6 g/dL 11/22/2021 8:03 AM [facility] Hematocrit 37.6 35.0 - 45.0 % 11/22/2021 8:03 AM [facility] MCV 90.4 80.7 - 98.3 fL 11/22/2021 8:03 AM [facility] MCH 29.1 26.7 - 34.0 pg 11/22/2021 8:03 AM [facility] MCHC 32.2 30.8 - 35.9 g/dL 11/22/2021 8:03 AM [facility] Platelet Count 185 150 - 400 10 3/uL 11/22/2021 8:03 AM [facility] RDW-SD 49.0 36.0 - 50.0 fL 11/22/2021 8:03 AM [facility] RDW-CV 14.8 11.2 - 14.8 % 11/22/2021 8:03 AM [facility] MPV 11.4 9.4 - 12.9 fL 11/22/2021 8:03 AM [facility] nRBC Absolute 0.00 0 10 3/uL 11/22/2021 8:03 AM [facility] nRBC Auto 0.0 0 /100 WBC 11/22/2021 8:03 AM [facility] Neutrophils % 51.6 35.0 - 70.0 % 11/22/2021 8:03 AM [facility] Lymphocytes % 32.8 20.0 - 43.0 % 11/22/2021 8:03 AM [facility] Monocytes % 12.2 5.0 - 13.0 % 11/22/2021 8:03 AM [facility] Eosinophils % 2.1 0.0 - 6.0 % 11/22/2021 8:03 AM [facility] Basophil % 0.5 0.0 - 2.0 % 11/22/2021 8:03 AM [facility] Neutrophils Absolute 1.95 1.60 - 7.00 10 3/uL 11/22/2021 8:03 AM CDT [facility] Lymphocyte Absolute 1.24 1.10 - 3.90 10 3/uL 11/22/2021 8:03 AM [facility] Monocytes Absolute 0.46 0.26 - 1.07 10 3/uL 11/22/2021 8:03 AM [facility] Eosinophils Absolute 0.08 0.00 - 0.47 10 3/uL 11/22/2021 8:03 AM [facility] Basophils Absolute 0.02 0.00 - 0.08 10 3/uL 11/22/2021 8:03 AM [facility] Immature Granulocytes % 0.8 0.0 - 1.0 % 11/22/2021 8:03 AM [facility] Immature Granulocytes Absolute 0.03 11/22/2021 8:03 AM [facility] Blood BLOOD SPECIMEN / Unknown Lab Venipuncture / Unknown 11/22/2021 7:45 AM CDT 11/22/2021 7:51 AM CDT Alexander Lorenzo MD LAB - HEMATOLOGY ORD ERABLES [facility] [address] [place] [address], [facility] [phone] * (ABNORMAL) BASIC METABOLIC PANEL (CALCIUM TOTAL) (11/22/2021 7:45 AM CDT) Only the most recent of2 resultswithin the time period is included. BUN 7 7 - 26 mg/dL 11/22/2021 8:15 AM [facility] Creatinine 0.60 0.56 - 0.96 mg/dL 11/22/2021 8:15 AM [facility] Sodium 141 136 - 145 mmol/L 11/22/2021 8:15 AM [facility] Potassium 3.5 3.5 - 4.5 mmol/L 11/22/2021 8:15 AM [facility] Chloride 103 98 - 107 mmol/L 11/22/2021 8:15 AM [facility] CO2 30(H) 22 - 29 mmol/L 11/22/2021 8:15 AM [facility] Glucose 99 70 - 115 mg/dL 11/22/2021 8:15 AM CDT [facility] Calcium 8.7 8.4 - 10.2 mg/dL 11/22/2021 8:15 AM CDT [facility] Anion Gap 12 8 - 18 11/22/2021 8:15 AM CDT [facility] BUN/Creatinine Ratio 12 7 - 23 11/22/2021 8:15 AM CDT [facility] Osmolality Calculated 290 270 - 300 mOsm/kg 11/22/2021 8:15 AM T [facility] eGFR by CKD-EPI >90 >=90 mL/min/1.7 3 m2 11/22/2021 8:15 AM CDT [facility] Blood BLOOD SPECIMEN / Unknown Lab Venipuncture / Unknown 11/22/2021 7:45 AM CDT 11/22/2021 7:51 AM CDT Alexander Lorenzo MD LAB - CHEMISTRY ORDE RABLES Performing Organization Address [facility] Co de Phone Number [facility] [address] [place] [phone], [facility] [phone] * FL TIAN SURGERY (11/20/2021 12:33 PM CDT) Narrative [facility] - 11/20/2021 12:46 PM CDT Fluoroscopy was used for this exam in the OR. Please see the Operative report. Alexander Lorenzo MD FLUOROSCOPY ORDERABL ES Performing Organization Address [facility] Co de Phone Number [facility] * ETT LINE PERFORMABLE (11/20/2021 10:45 AM CDT) Narrative Estevan Mobley Anes Asst - 11/20/2021 10:45 AM CDT Estevan Mobley Anes Asst 11/20/2021 10:48 AM Endotracheal Tube Placement: Patient Location: OR. Intubation Event Date/Time: 11/20/2021 9:42 AM Procedure: intubation ([id number]). Procedure Section: Sedation: under general anesthesia. Indications [...] A POS 11/20/2021 9:4 7 AM CDT [facility] Blood Bank BLOOD SPECIMEN / Unknown Lab Venipuncture / Unknown 11/20/2021 8:50 AM CDT 11/20/2021 8:52 AM CDT Provider Unknown LAB - BLOOD BANK ORD ERABLES [facility] [address] [place] [address], [facility] [phone] * TYPE + SCREEN PANEL (11/20/2021 8:35 AM CDT) Antibody Screen NEG 9:36 AM CDT [facility] ABO Rh A POS 11/20/2021 9:36 AM CDT [facility] Blood Bank BLOOD SPECIMEN / Unknown Venipuncture / Unknown 11/20/2021 8:35 AM CDT 11/20/2021 8:42 AM CDT Alexander Lorenzo MD LAB - BLOOD BANK ORD ERABLES Performing Organization Address [facility] Co de Phone Number [facility] [address] [place] [address], [facility] [phone] * PTT [facility] (11/13/2021 1:02 PM CDT) APTT 26.4 23.0 - 38.4 Seconds 11/13/2021 1:56 PM CDT [facility] Comment:Suggested therapeuti c range for full dose I.V. unfractionated heparin therapy for venous thromboembolism is 71 to 109 seconds. Blood BLOOD SPECIMEN / Unknown Lab Venipuncture / Unknown 11/13/2021 1:02 PM CDT 11/13/2021 1:28 PM CDT Alexander Lorenzo MD LAB - COAGULATION OR DERABLES Performing Organization Address [facility] Co de Phone Number [facility] [address] [place] [address], [facility] [phone] * PT-INR [facility] (11/13/2021 1:02 PM CDT) PT 12.6 12.1 - 14.8 Seconds 11/13/2021 1:56 PM CDT [facility] INR 1.0 See Comment 11/13/2021 1:56 PM CDT [facility] Comment:The suggested therap eutic [...] - COAGULATION OR DERABLES Performing Organization Address [facility] Co de Phone Number [facility] [address] [place] [phone], [facility] [phone] * XR CHEST 2VW (11/13/2021 12:50 PM CDT) Anatomical Region Laterality Modality Chest Radiographic Idania ging 11/13/2021 3:17 PM CDT Impressions 11/14/2021 2:12 AM CDT IMPRESSION: No acute pulmonary process. Report dictated by Aydin Arzola DO (radiology orderly). Dr. GERALDINE Hargrove have personally reviewed and [...] The cardiomediastinal silhouette is normal. Procedure Note Grealdine Bella MD - 11/14/2021 EXAMINATION: XR CHEST 2VW, 11/13/2021 12:50 PM HISTORY: Z01.818: Pre-op testing COMPARISON: No prior study is available for comparison. FINDINGS: There is no focal consolidation, pleural effusion, or pneumothorax. The cardiomediastinal silhouette is normal. IMPRESSION: No acute pulmonary process. Report dictated by Aydin Arzola DO (radiology orderly). Dr. GERALDINE Hargrove have personally reviewed and [...] (Bezet) 469 ms SL MUSE Calculated P [place] 70 degrees SLH MUSE Calculated R [place] 53 degrees [facility] MUSE Calculated T [place] 51 degrees [facility] MUSE Interpretation EKG NORMAL SINUS RHYTHM NORMAL ECG NO PREVIOUS ECGS AVAILABLE Confirmed by Kenneth Bautista ([id number]) on 11/15/2021 8:36:16 AM [facility] 11/13/2021 11:4 9 AM CDT 11/15/2021 8:36 AM CDT Alexander Lorenzo MD ECG ORDERABLES [facility]
--- OUTSIDE RECORDS SUMMARY | 2024-08-03 09:58 | XMS_ITS | Clinical Summary ---
Author Organization [facility] Address [address] [place] [address] Phone Care Team Providers Care Filter Operator Name Role Phone WILLIAM TOLEDO, GENO Primary Care Provider [phone] J CARLOS LANGSTON MD Unavailable [phone] Reason for Visit and Chief Complaint The Chief Complaint is: Referred by Dr. Geno Thomas Sciatic nerve and back pain Plan of Treatment Risk assessment completed and UDS collected for initial pain management visit to determine opioid candidacy and risk. Urine sample sent for confirmation via LCMS when appropriate. - Last Documented On 10/14/2021 12:03PM ; [facility] Referrals To Diagnosis Pain Management [facility] - [address] [place] [address] - Radiculopathy, lumbar region Note: Needs done this week p rior to surgery if possible.Consent for RightTransforaminal Epidural steroid injection at L3-4 and L4-5 under fluorsocopyNo need to hold NSAIDs/ ASA Last Documented On 3 4:52PM ; [facility] Instructions to patient Intervention and counseling on cessation of tobacco use : Patient recieved smoking cessation handout Last Documented On 2 8:23AM ; [facility] Education and Decision Aids were provided during visit for: Pill Count: 45 Hydrocodone 5 /325 Last Documented On 2 9:19AM ; [facility] Assessments Includes: Assessments from this encounter Findings - [M54.9 - Dorsalgia, unspecified] DORSALGIA - Last Documented On 10/14/2021 12:03PM ; [facility] - [M51.26 - Other intervertebral disc displacement, lumbar region] Bulging lumbar disc - Last Documented On 10/14/2021 12:03PM ; [facility] - [M47.26 - Other spondylosis with radiculopathy, lumbar region] Lumbar spondylosis with radiculopathy - Last Documented On 10/14/2021 12:03PM ; [facility] - [M48.062 - Spinal stenosis, lumbar region with neurogenic claudication] Lumbar canal stenosis with neurogenic claudication - Last Documented On 10/14/2021 12:03PM ; [facility] - [M54.16 - Radiculopathy, lumbar region] Lumbar radiculopathy - Last Documented On 10/14/2021 12:03PM ; [facility] Instructions Includes: Instructions from this encounter Instructions to patient Intervention and counseling on cessation of tobacco use : Patient recieved smoking cessation handout Last Documented On 2 8:23AM ; [facility] Education and Decision Aids were provided during visit for: Pill Count: 45 Hydrocodone 5 /325 Last Documented On 2 9:19AM ; [facility] Medical Equipment - Implanted Devices Includes: Current Devices No Medical Equipment Recorded Medications Includes: Medications discussed during this encounter and other current Medications New / Renewed during this visit MAKAYLA HAMILTON on 10/11/2021 Pregabalin 150 MG Oral Capsule Provider: MAKAYLA LANE 30 day supply: 60 capsule, 0 refills Diagnosis: Radiculopathy, lumbar region 1 CAPSULE TWO TIMES A DAY [facility] [address], [id number] - Last Documented On 2 9:18AM By LUZ BENAVIDES ; [facility] Pregabalin 75 MG Oral Capsule Provider: MAKAYLA LANE 14 day supply: 32 capsule, 0 refills Diagnosis: Radiculopathy, lumbar region 1 tab at HS for 4 days, then 1 two times daily for 4 days, then 1 in am and 2 in pm for 4 days then 2 tabs two times daily Pharmacy: [facility] [address], [id number] - Last Documented On 2 2:13PM By LUZ BENAVIDES ; [facility] Current Medications (continue as prescribed) Pregabalin 75 MG Oral Capsule 11/14/2021 Provider: LUZ DEJESUS APRN- СЕРГЕЙA, NADER-SANDY Diagnosis: Radiculopathy, l umbar region 1 CAPSULE TWO TIMES A DAY Last Documented On 2 2:23PM By LUZ BENAVIDES ; [facility] Phentermine HCl 30 MG Oral Capsule 09/29/2021 Provid er: GENO THOMAS MD Diagnosis: Last Documented On 2 9:15AM By LUZ BENAVIDES ; [facility] Meloxicam 15 MG Oral Tablet 09/27/2021 Provider: Diagnosis: As needed. 1 every 2-3 days. Last Documented On 2 9:15AM By LUZ BENAVIDES ; [facility] Oxybutynin Chloride ER 10 MG Oral Tablet Extended Release 24 Hour 09/27/2021 Provider: GENO THOMAS MD Diagnosis: Last Documented On 2 9:15AM By LUZ BENAVIDES ; [facility] HYDROcodone-Acetaminophen 5- 325 MG Oral Tablet 09/27/2021 Provider: GENO THOMAS MD Diagnosis: 1 tablet by mouth every 4 hours as needed for pa in. Last Documented On 2 9:15AM By LUZ BENAVIDES ; [facility] Medications Administered Includes: [...] 99 Last Documented: On 10/11/2021 8:42AM ; [facility] Results Includes: Results discussed during this encounter Drugs of abuse screen [facility] Ordered by LUZ DEJESUS APRN-ISMA, NADER- SANDY on 10/11/2021 Collected: Reported: 10/11/2021 08:47 Last Documented On 2 8:48AM ; [facility] Reviewed on 10/11/2021; All test results are final unless otherwise noted. Lot # & Exp. Date [id number] EXP 2023-02-21 (NEG) N (Normal) Last Documented On 2 8:48AM ; [facility] Amphetamines POS (POS) A (Abnormal) Last Documented On 2 8:48AM ; [facility] Barbiturates NEG (neg) N (Normal) Last Documented On 2 8:48AM ; [facility] Benzodiazepines NEG (neg) N (Normal) Last Documented On 2 8:48AM ; [facility] Cocaine NEG (neg) N (Normal) Last Documented On 2 8:48AM ; [facility] Ecstasy NEG (Neg) N (Normal) Last Documented On 2 8:48AM ; [facility] Methamphetamines NEG (neg) N (Normal) Last Documented On 2 8:48AM ; [facility] Methadone NEG (Neg) N (Normal) Last Documented On 2 8:48AM ; [facility] Morphine NEG (Neg) N (Normal) Last Documented On 2 8:48AM ; [facility] Oxycodone NEG (Neg) N (Normal) Last Documented On 2 8:48AM ; [facility] Phencyclidine NEG (NEG) N (Normal) Last Documented On 2 8:48AM ; [facility] TCA/Tricyclic Antidepressants NEG (neg) N (Normal) Last Documented On 2 8:48AM ; [facility] Cannabis POS (POS) A (Abnormal) Last Documented On 2 8:48AM ; [facility] History of Present Illness Includes: History of [...] and L5- S1 on November 20 at [facility] (unsure of surgeon's name). She has numbness, [...] 10/11/2021 Last Documented On 2 12:03PM ; [facility] Difficulty walking 10/11/2021 Last Documented On 2 12:03PM ; [facility] Drug use 10/11/2021 Last Documented On 2 12:03PM ; [facility] No consumption of alcohol 10/11/2021 Last Documented On 2 12:03PM ; [facility] Type: Marijuana 10/11/2021 Last Documented On 2 12:03PM ; [facility] Smoking Status Unknown Procedures and Surgical History Includes: Procedures from this encounter Procedures Code Diagnosis Performing Provider Service L ocation Service Date intervention and counseling on cessation of tobacco use : Patient recieved smoking cessation handout 4000F Last Documented On 2 8:23AM ; [facility] use of tobacco assessment performed 1000F Last Documented On 2 8:37AM ; [facility] patient screened for future fall risk: documentation of any fall with injury in past year 1100F Last Documented On 2 8:23AM ; [facility] review of medications documented 1160F Last Documented On 2 8:23AM ; [facility] screening for adult depression: impressi on and score seven Last Documented On 2 8:23AM ; [facility] standardized depression screening: posit isidro for symptoms Last Documented On 2 8:23AM ; [facility] Clinical summary provided to patient Last Documented On 2 8:22AM ; [facility] SOAPP-R: total score 9 Last Documented On 2 8:22AM ; [facility] Surgical History Last Updated No Pacemaker 10/11/2021 Last Documented On 2 12:03PM ; [facility] Medical History Includes: Medical History addressed during this encounter Description Last Updated Denies a fear of falling. 10/11/2021 Last Documented On 2 12:03PM ; [facility] Has had a fall in the last 12 months. Last Documented On 2 12:03PM ; [facility] CT/MRI September 2021lower back butt 022 Last Documented On 2 12:03PM ; [facility] Moderate to severe pain 10/11/2021 Last Documented On 2 12:03PM ; [facility] No Pain Pump 10/11/2021 Last Documented On 2 12:03PM ; [facility] No Spinal cord stimulator 10/11/2021 Last Documented On 2 12:03PM ; [facility] Please list all illnesses/co nditions you have been diagnosed with: Stenosis of the spine bulging discs 10/11/2021 Last Documented On 2 12:03PM ; [facility] Please list all surgeries: B ladder tie 2005right foot- plantarfacitistubel 1994gallbladder removed 200710/11/2021 Last Documented On 2 12:03PM ; [facility] Uses a cane for support 10/11/2021 Last Documented On 2 12:03PM ; [facility] X-rays September 2021 lower back butt 2021 Last Documented On 2 12:03PM ; [facility] Family History [...] Diagnosis PAIN MANAGEMENT NEW CONSULT LUZ DEJESUS YEAST DISTILLER-FPA, FORWARDER OPERATOR-BC [facility] 022 8:21AM 9:06AM Lumbar Radiculopathy,Bul ging Intervertebral Disc Lumbar,Spinal Stenosis Lumbar with Neurogenic Claudication,Spon dylosis with Radiculopathy Lumbar Region,Dorsalgia Insurance Includes: Active Insurance Policies Plan Name Member ID Group # Subscriber Relationship Effect isidro Dates 1 - [facility] [id number] MARYAM MOLINA Self Clinical Notes Includes: Clinical Notes from this encounter No Clinical Notes Recorded
--- OUTSIDE RECORDS SUMMARY | 2024-08-03 09:58 | XMS_ITS ---
Author Organization [facility] Address [address] [place] [address] Phone Care Team Providers Care State Trooper Name Role Phone WILLIAM TOLEDO, GENO Primary Care Provider [phone] IVIS TOLEDO, J CARLOS Spaulding Unavailable [phone] Plan of Treatment Referrals To Diagnosis Pain Management [facility] - [address] [place] [phone] - Radiculopathy, lumbar region Note: Needs done this week p rior to surgery if possible.Consent for RightTransforaminal Epidural steroid injection at L3-4 and L4-5 under fluorsocopyNo need to hold NSAIDs/ ASA Last Documented On 3 4:52PM ; [facility] Instructions to patient Intervention and counseling on cessation of tobacco use : Patient recieved smoking cessation handout Last Documented On 2 8:23AM ; [facility] Education and Decision Aids were provided during visit for: Pill Count: 45 Hydrocodone 5 /325 Last Documented On 2 9:19AM ; [facility] Assessments Includes: Assessments for all patient encounters Findings Encounter Date Bulging lumbar disc PAIN MANAGEMENT NEW CONSULT with MAKAYLA HAMILTON 10/11/2021 Last Documented On 2 12:03PM ; [facility] DORSALGIA PAIN MANAGEMENT NEW CONSULT with MAKAYLA HAMILTON 10/11/2021 Last Documented On 2 12:03PM ; [facility] Lumbar canal stenosis with n eurogenic claudication PAIN MANAGEMENT NEW CONSULT with NADER HAMILTON-SANDY 10/11/2021 Last Documented On 2 12:03PM ; [facility] Lumbar radiculopathy PAIN MANAGEMENT NEW CONSULT with NADER HAMILTON-BC 10/11/2021 Last Documented On 2 12:03PM ; [facility] Lumbar spondylosis with radiculopathy PA IN MANAGEMENT NEW CONSULT with NADER HAMILTON-BC 10/11/2021 Last Documented On 2 12:03PM ; [facility] Instructions Includes: Instructions for all patient encounters Instructions to patient Intervention and counseling on cessation of tobacco use : Patient recieved smoking cessation handout Last Documented On 2 8:23AM ; [facility] Education and Decision Aids were provided during visit for: Pill Count: 45 Hydrocodone 5 /325 Last Documented On 2 9:19AM ; [facility] Medical Equipment - Implanted Devices Includes: Current and historical Devices No Medical Equipment Recorded Medications Includes: Current and historical Medications Current Medications (continue as prescribed) Pregabalin 75 MG Oral Capsule 11/14/2021 Provider: MAKAYLA LANE Diagnosis: Radiculopathy, l umbar region 1 CAPSULE TWO TIMES A DAY Last Documented On 2 2:23PM By LUZ BENAVIDES ; [facility] Pregabalin 150 MG Oral Capsule 10/11/2021 Provider: MAKAYLA LANE Diagnosis: Radiculopathy, l umbar region 1 CAPSULE TWO TIMES A DAY Last Documented On 2 9:18AM By LUZ BENAVIDES ; [facility] Phentermine HCl 30 MG Oral Capsule 09/29/2021 Provid er: GENO THOMAS MD Diagnosis: Last Documented On 2 9:15AM By LUZ BENAVIDES ; [facility] Meloxicam 15 MG Oral Tablet 09/27/2021 Provider: Diagnosis: As needed. 1 every 2-3 days. Last Documented On 2 9:15AM By LUZ DOE-SANDY ; [facility] Oxybutynin Chloride ER 10 MG Oral Tablet Extended Release 24 Hour 09/27/2021 Provider: GENO THOMAS MD Diagnosis: Last Documented On 2 9:15AM By LUZ DOE-SANDY ; [facility] HYDROcodone-Acetaminophen 5- 325 MG Oral Tablet 09/27/2021 Provider: GENO THOMAS MD Diagnosis: 1 tablet by mouth every 4 hours as needed for pa in. Last Documented On 2 9:15AM By LUZ DOE-SANDY ; [facility] Past Medications on file [...] On 2 2:13PM By LUZ DOE-SANDY ; [facility] Medications Administered Includes: Administered Medications in patient's chart No Administered Medications Recorded Results Includes: Results from 08/03/2023 through 08/03/2024 No Results Recorded For Specified Dates History of Present Illness History of Present Illness not supported for this document type No History of Present Illness Recorded Social History Description Last Updated Tobacco non-user 10/11/2021 Last Documented On 2 12:03PM ; [facility] Difficulty walking 10/11/2021 Last Documented On 2 12:03PM ; [facility] Drug use 10/11/2021 Last Documented On 2 12:03PM ; [facility] No consumption of alcohol 10/11/2021 Last Documented On 2 12:03PM ; [facility] Type: Marijuana 10/11/2021 Last Documented On 2 12:03PM ; [facility] Smoking Status Unknown Procedures and Surgical History Surgical History Last Updated No Pacemaker 10/11/2021 Last Documented On 2 12:03PM ; [facility] Medical History Includes: Medical History in patient's chart Description Last Updated Denies a fear of falling. 10/11/2021 Last Documented On 2 12:03PM ; [facility] Has had a fall in the last 12 months. Last Documented On 2 12:03PM ; [facility] CT/MRI September 2021lower back butt 022 Last Documented On 2 12:03PM ; [facility] Moderate to severe pain 10/11/2021 Last Documented On 2 12:03PM ; [facility] No Pain Pump 10/11/2021 Last Documented On 2 12:03PM ; [facility] No Spinal cord stimulator 10/11/2021 Last Documented On 2 12:03PM ; [facility] Please list all illnesses/co nditions you have been diagnosed with: Stenosis of the spine bulging discs 10/11/2021 Last Documented On 2 12:03PM ; [facility] Please list all surgeries: B ladder tie 2005right foot- plantarfacitistubel 1994gallbladder removed 200710/11/2021 Last Documented On 2 12:03PM ; [facility] Uses a cane for support 10/11/2021 Last Documented On 2 12:03PM ; [facility] X-rays September 2021 lower back butt 2021 Last Documented On 2 12:03PM ; [facility] Family History Includes: Family History in patient's [...] Member ID Group # Subscriber Relationship Effect iisdro Dates 1 - [facility] [id number] MARYAM MOLINA Self Clinical Notes Includes: Signed Clinical Notes starting from 06/27/2022 No Clinical Notes Recorded
--- OUTSIDE RECORDS SUMMARY | 2024-08-03 09:58 | XMS_ITS | Clinical Summary ---
Author Organization [facility] Address [address] [place] [phone] Phone Care Team Providers Care Child Care Lead Teacher Name Role Phone WILLIAM TOLEDO, GENO Primary Care Provider [phone] J CARLOS LANGSTON MD Unavailable [phone] Reason for Visit and Chief [...] On 2 2:13PM By LUZ BENAVIDES ; [facility] New / Renewed during this visit MAKAYLA HAMILTON on 11/14/2021 Pregabalin 75 MG Oral Capsule Provider: MAKAYLA LANE 14 day supply: 28 capsule, 0 refills Diagnosis: Radiculopathy, lumbar region 1 CAPSULE TWO TIMES A DAY Pharmacy: [facility] [address], [id number] - Last Documented On 2 2:23PM By LUZ BENAVIDES ; [facility] Current Medications (continue as prescribed) Pregabalin 150 MG Oral Capsule 10/11/2021 Provider: MAKAYLA LANE Diagnosis: Radiculopathy, l umbar region 1 CAPSULE TWO TIMES A DAY Last Documented On 2 9:18AM [facility] ; [facility] Phentermine HCl 30 MG Oral Capsule 09/29/2021 Provid er: GENO THOMAS MD Diagnosis: Last Documented On 2 9:15AM By LUZ NOLANDSANDY ; [facility] Meloxicam 15 MG Oral Tablet 09/27/2021 Provider: Diagnosis: As needed. 1 every 2-3 days. Last Documented On 2 9:15AM By LUZ BENAVIDES ; [facility] Oxybutynin Chloride ER 10 MG Oral Tablet Extended Release 24 Hour 09/27/2021 Provider: GENO THOMAS MD Diagnosis: Last Documented On 2 9:15AM By LUZ BENAVIDES ; [facility] HYDROcodone-Acetaminophen 5- 325 MG Oral Tablet 09/27/2021 Provider: GENO THOMAS MD Diagnosis: 1 tablet by mouth every 4 hours as needed for pa in. Last Documented On 2 9:15AM By LUZ [facility]JESUS [facility] ; [facility] Medications Administered Includes: Administered Medications from this encounter No Administered Medications Recorded Results Includes: Results discussed during this encounter No Results Recorded For Specified Dates History of Present Illness Includes: History of Present Illness from this encounter No History of Present Illness Recorded Social History Description Last Updated Tobacco non-user 10/11/2021 Last Documented On 2 12:33PM ; [facility] Difficulty walking 10/11/2021 Last Documented On 2 12:33PM ; [facility] Drug use 10/11/2021 Last Documented On 2 12:33PM ; [facility] No consumption of alcohol 10/11/2021 Last Documented On 2 12:33PM ; [facility] Type: Marijuana 10/11/2021 Last Documented On 2 12:33PM ; [facility] Smoking Status Unknown Procedures and Surgical History Surgical History Last Updated No Pacemaker 10/11/2021 Last Documented On 2 12:33PM ; [facility] Medical History Includes: Medical History addressed during this encounter Description Last Updated Denies a fear of falling. 10/11/2021 Last Documented On 2 12:33PM ; [facility] Has had a fall in the last 12 months. Last Documented On 2 12:33PM ; [facility] CT/MRI September 2021lower back butt 022 Last Documented On 2 12:33PM ; [facility] Moderate to severe pain 10/11/2021 Last Documented On 2 12:33PM ; [facility] No Pain Pump 10/11/2021 Last Documented On 2 12:33PM ; [facility] No Spinal cord stimulator 10/11/2021 Last Documented On 2 12:33PM ; [facility] Please list all illnesses/co nditions you have been diagnosed with: Stenosis of the spine bulging discs 10/11/2021 Last Documented On 2 12:33PM ; [facility] Please list all surgeries: B ladder tie 2005right foot- plantarfacitistubel 1995gallbladder removed 200710/11/2021 Last Documented On 2 12:33PM ; [facility] Uses a cane for support 10/11/2021 Last Documented On 2 12:33PM ; [facility] X-rays September 2021 lower back butt 2021 Last Documented On 2 12:33PM ; [facility] Family History Includes: Family History addressed [...] Diagnosis * PHONE CALL LUZ DEJESUS APRN-FPA, INFORMATION TECHNOLOGY ADMINISTRATOR-BC 11/14/2021 12:32PM 11:59PM Insurance Includes: Active Insurance Policies Plan Name Member ID Group # Subscriber Relationship Effect isidro Dates 1 - [facility] [id number] MARYAM MOLINA Self Clinical Notes Includes: Clinical Notes from this encounter No Clinical Notes Recorded
--- OUTSIDE RECORDS SUMMARY | 2024-08-03 09:58 | XMS_ITS | Referral Summary ---
Author Organization [facility] Address [address] [place] [address] Care Team Providers Care Strip Mill Operator Name Role Phone Unavailable Primary Care Provider Unavailabl e Source Comments [facility],non-owned Affiliates and Associated Physician Practices is amultiple site organization consisting of ambulatory clinics and hospital sitesin [place], [place], [place]. This disclosure is being madepursuant to the Care Everywhere program and may not contain all information available regarding this patient. Last updated 18.[facility] Allergies No known active allergies Medications * [...] on file Medical Devices Implanted Type Area Armoring Machine Operator Device Identifier Shelf Expiration Date Model / Serial / Lot Slnt Dura Duraseal Pg Trilysine Amine 5 Implanted:Qty: 1 on 11/20/2021 by Alexander Lorenzo MD at [facility] N/A: Spine Lumbar Integra [employer] Leydi 03/07/2023 [id number] / / [id number] Graft Tissue Drgn + Bvn Clgn Mtrx 2x2in Implanted:Qty: 1 on 11/20/2021 by Alexander Lorenzo MD at [facility] N/A: Spine Lumbar Integra [employer] 09/05/2024 [id number] / / [id number] Procedures Procedure Name Priority Date/Time Associated Diagnosis Comments BASIC METABOLIC PANEL (CALCIUM TOTAL) STAT 11/22/2021 7:45 AM CDT from Last 3 Months or Most Recently Relevant to Health Maintenance Results * (ABNORMAL) BASIC METABOLIC PANEL (CALCIUM TOTAL) (11/22/2021 7:45 AM CDT) BUN 7 7 - 26 mg/dL 11/22/2021 8:15 AM [facility] Creatinine 0.60 0.56 - 0.96 mg/dL 11/22/2021 8:15 AM [facility] Sodium 141 136 - 145 mmol/L 11/22/2021 8:15 AM [facility] Potassium 3.5 3.5 - 4.5 mmol/L 11/22/2021 8:15 AM [facility] Chloride 103 98 - 107 mmol/L 11/22/2021 8:15 AM [facility] CO2 30(H) 22 - 29 mmol/L 11/22/2021 8:15 AM [facility] Glucose 99 70 - [...] Lorenzo MD LAB - CHEMISTRY [facility] Organization Address City/State/ZIP Co de Phone Number [facility] [address] [place] [address], [facility] [phone] from Last 3 Months or Most Recently Relevant to Health Maintenance Advance Directives * Full Code (Latest Code Status on File) Date Activated Date Inactivated Comments 11/20/2021 4:34 PM 11/22/2021 3:37 PM
--- OUTSIDE RECORDS SUMMARY | 2024-08-03 09:58 | XMS_ITS | Clinical Summary ---
Author Organization [facility] Address [address] [place] [address] Phone Care Team Providers Care Litigation Support Analyst Name Role Phone WILLIAM TOLEDO, GENO Primary Care Provider [phone] J CARLOS LANGSTON MD Unavailable [phone] Reason for Visit and Chief [...] Last Documented On 2 2:23PM By LUZ BENAVIDSE ; [facility] Pregabalin 150 MG Oral Capsule 10/11/2021 Provider: MAKAYLA L[address] Diagnosis: Radiculopathy, l umbar region 1 CAPSULE TWO TIMES A DAY Last Documented On 2 9:18AM By LUZ BENAIVDES ; [facility] Phentermine HCl 30 MG Oral Capsule 09/29/2021 Provid er: GENO THOMAS MD Diagnosis: Last Documented On 2 9:15AM By LUZ BENAVIDES ; [facility] Meloxicam 15 MG Oral Tablet 09/27/2021 Provider: Diagnosis: As needed. 1 every 2-3 days. Last Documented On 2 9:15AM By LUZ BENAVIDES ; [facility] Oxybutynin Chloride ER 10 MG Oral Tablet Extended Release 24 Hour 09/27/2021 Provider: GENO THOMAS MD Diagnosis: Last Documented On 2 9:15AM By LUZ BENAVIDES ; [facility] HYDROcodone-Acetaminophen 5- 325 MG Oral Tablet 09/27/2021 Provider: GENO THOMAS MD Diagnosis: 1 tablet by mouth every 4 hours as needed for pa in. Last Documented On 2 9:15AM By LUZ BENAVIDES ; [facility] Medications Administered Includes: Administered Medications from this encounter No Administered Medications Recorded Results Includes: Results discussed during this encounter No Results Recorded For Specified Dates History of Present Illness Includes: History of Present Illness from this encounter No History of Present Illness Recorded Social History Description Last Updated Tobacco non-user 10/11/2021 Last Documented On 2 1:37PM ; [facility] Difficulty walking 10/11/2021 Last Documented On 2 1:37PM ; [facility] Drug use 10/11/2021 Last Documented On 2 1:37PM ; [facility] No consumption of alcohol 10/11/2021 Last Documented On 2 1:37PM ; [facility] Type: Marijuana 10/11/2021 Last Documented On 2 1:37PM ; [facility] Smoking Status Unknown Procedures and Surgical History Surgical History Last Updated No Pacemaker 10/11/2021 Last Documented On 2 1:37PM ; [facility] Medical History Includes: Medical History addressed during this encounter Description Last Updated Denies a fear of falling. 10/11/2021 Last Documented On 2 1:37PM ; [facility] Has had a fall in the last 12 months. Last Documented On 2 1:37PM ; [facility] CT/MRI September 2021lower back butt Last Documented On 2 1:37PM ; [facility] Moderate to severe pain 10/11/2021 Last Documented On 2 1:37PM ; [facility] No Pain Pump 10/11/2021 Last Documented On 2 1:37PM ; [facility] No Spinal cord stimulator 10/11/2021 Last Documented On 2 1:37PM ; [facility] Please list all illnesses/co nditions you have been diagnosed with: Stenosis of the spine bulging discs 10/11/2021 Last Documented On 2 1:37PM ; [facility] Please list all surgeries: B ladder tie 2005right foot- plantarfacitistubel 1994gallbladder removed 200710/11/2021 Last Documented On 2 1:37PM ; [facility] Uses a cane for support 10/11/2021 Last Documented On 2 1:37PM ; [facility] X-rays September 2021 lower back butt 2021 Last Documented On 2 1:37PM ; [facility] Family History Includes: Family History addressed [...] Subscriber Relationship Effect isidro Dates 1 - [facility] [id number] MARYAM MOLINA Self Clinical Notes Includes: Clinical Notes from this encounter No Clinical Notes Recorded
--- OUTSIDE RECORDS SUMMARY | 2024-08-03 09:59 | XMS_ITS ---
Care Plan - [facility] Created on: August 03, 2024 MARIAN MOLINAY Osmin : 1965 Sex: Female Author Organization [facility] Address [address] [place] [address] Phone Care Team Providers Care Videotape Sales Representative Name Role Phone WILLIAM TOLEDO, GENO Primary Care Provider [phone] IVIS TOLEDO, J CARLOS Menard [phone]
--- OUTSIDE RECORDS SUMMARY | 2024-08-03 09:59 | XMS_ITS | Clinical Summary ---
Author Organization [facility] [address] Address [address] [place] [address] Phone Care Team Providers Care Salesperson Household Appliances Name Role Phone Familia Pacheco MD Primary [...] on file Legal Sex Female 9:15 AM HOTEL SECURITY OFFICER Gender Identity Not on file Sexual Orientation [...] PM CDT Pulse 79 08/02/2021 2:21 PM HOTEL SECURITY OFFICER Temperature 36.3 C (97.3 F) 10/08/2020 9:51 [...] HPV HR 16 Not Detected Not Detected [facility] Comment:Testing performed by : [facility], [address] [facility] [place]., [address] HPV HR 18 Not Detected Not Detected [facility] Comment:Testing performed by : [facility], [address] [facility], [place]., [address] HPV HR Non 16/18 Not Detected Not [...] this test have been verified by the [facility] Molecular Infectious Disease laboratory. Correlate with separately reported cytology results, as applicable. Interpretive data last revised 22 Testing performed by: [facility], [address] [place]., [address] Endocervical 04/08/2024 3:12 PM CDT 04/11/2024 2:01 PM HOTEL SECURITY OFFICER Narrative [facility] Cole 04/12/2024 5:06 AM HOTEL SECURITY OFFICER Clinical history and diagnosis->DX Z12.4 Testing type->Screening Last menstrual period (date if known)->N/A Menstrual status->Postmenopausal Previous negative PAP?->Yes Feliz Shen MD LAB BODY FLUIDS AND S TOOLS ORDERABLES Final Result [facility] [address] Department of Laboratories [place], [place] [id number] [facility] * Screening Mammogram Bilateral W Kwan (04/08/2024 [...] BILATERAL W KWAN ORDERING HEALTHCARE PROVIDER: FELIZ SEHN HISTORY: Routine screening mammography. COMPARISON: 04/03/2023, 03/24/2022, [...] Most Recently Relevant to Health Maintenance Insurance [facility] [place] [id number] Care Teams Salesperson Household Appliances Relationship Specialty Start Date End Date Familia Pacheco MD [address] [place] [address] PCP - General Family Medicine 06/26/17
--- OUTSIDE RECORDS SUMMARY | 2024-08-03 09:59 | XMS_ITS | Referral Summary ---
Author Organization [facility] [address] Address [address] [place] [address] Phone Care Team Providers Care Bakery Worker Conveyor Line Name Role Phone Familia Pacheco MD Primary [...] on file Legal Sex Female 9:15 AM SHOTGUN SHELL ASSEMBLY MACHINE ADJUSTER Gender Identity Not on file Sexual Orientation Not on file Last Filed Vital Signs Vital Sign Reading Time Taken Comments Blood Pressure 112/80 04/08/2024 1:57 PM CDT Pulse 79 08/02/2021 2:21 PM SHOTGUN SHELL ASSEMBLY MACHINE ADJUSTER Temperature 36.3 C (97.3 F) 10/08/2020 9:51 [...] HPV HR 16 Not Detected Not Detected [facility] Comment:Testing performed by : [facility], [address] [place]., [address] HPV HR 18 Not Detected Not Detected [facility]ARAZ Comment:Testing performed by : [facility], [address] [place]., [address] HPV HR Non 16/18 Not Detected Not [...] this test have been verified by the [facility] Molecular Infectious Disease laboratory. Correlate with separately reported cytology results, as applicable. Interpretive data last revised 22 Testing performed by: [facility], [address] [place]., [address] Endocervical 04/08/2024 3:12 PM CDT 04/11/2024 2:01 PM SHOTGUN SHELL ASSEMBLY MACHINE ADJUSTER Narrative MAIRA Cole 04/12/2024 5:06 AM SHOTGUN SHELL ASSEMBLY MACHINE ADJUSTER Clinical history and diagnosis->DX Z12.4 Testing type->Screening Last menstrual period (date if known)->N/A Menstrual status->Postmenopausal Previous negative PAP?->Yes Feliz Shen MD LAB BODY FLUIDS AND S TOOLS ORDERABLES Final Result [facility] [address] Department [place] [address] [facility] * Screening Mammogram Bilateral W Kwan [...] Most Recently Relevant to Health Maintenance Insurance [facility] [place] [id number] Care Teams Bakery Worker Conveyor Line Relationship Specialty Start Date End Date Familia Pacheco MD [address] [place] [address] PCP - General Family Medicine 06/26/17
[2024-08-03 10:00] VITALS: BP 128/80; PULSE 62; RESP 18; O2SAT 98
[2024-08-03 10:02] LABS: Alanine Aminotransferase 26 U/L (14-59); Albumin Level 3.1 g/dL (3.4-5.0); Alkaline Phosphatase 118 U/L (46-116); Anion Gap 7 mmol/L (4-12); Aspartate Amino Transferase 13 U/L (15-37); Bilirubin,Total 0.6 mg/dL (0.00-1.00); Blood Urea Nitrogen 17 mg/dL (7-18); Calcium 8.8 mg/dL (8.5-10.1); Carbon Dioxide 30 mmol/L (21-32); Chloride 104 mmol/L (98-108); Estimated CRCL calculation 92 ml/min; Estimated Glomerular Filt Rate > 60; Glucose 92 mg/dL (70-99); Lipase 55 U/L (16-77); Osmolality Calculated 293 mOsm/kg (285-295); Sodium 141 mmol/L (136-145); Total Protein 7.1 g/dL (6.4-8.2)
[2024-08-03] MEDS: ONDANSETRON INJ 4 MG/2 ML VIAL IV PUSH (10:31)
[2024-08-03] MEDS: HYDROmorphone HCL INJ (*CRX) 2 MG/ML VIAL 0.5 MG IV PUSH (10:31)
--- NOTE | 2024-08-03 10:33 | PC.NURSE ---
pt reports she is in a lot of pain, unsure why it hurts so much. states he is going to give me medicine for a uti he isn't sure I have, if he is just trying to humor me he does not have to. I just want to know what's wrong. pt has been medicated, awaiting erp decision. family at bedside. will continue to monitor.
--- NOTE | 2024-08-03 11:13 | PC.NURSE ---
UPON REASSESSMENT OF PAIN MEDICATION, PT REPORTS IT HELPED FOR A LITTLE BIT, BUT IT DOESN'T FEEL LIKE I HAD ANY MEDICATION AT ALL NOW. ERP IS NOTIFIED. NEW MEDICATIONS HAVE BEEN ORDERED. WILL CONTINUE TO MONITOR.
[2024-08-03] MEDS: HYDROcodone/acetaminophen (*CRX) 5-325 MG TABLET 1 TAB PO (11:25)
[2024-08-03] MEDS: LACTATED RINGERS 1,000 ML 999 ML IV CONT (11:25)
--- NOTE | 2024-08-03 11:27 | PC.NURSE ---
pt to ct at this time
--- NOTE | 2024-08-03 11:40 | PC.NURSE ---
PT HAS RETURNED FROM CT, IVF INFUSING ORDERED WITHOUT DIFFICULTY. PT IS AWAITING CT RESULTS AT THIS TIME. PT CONTINUES TO REPORT PAIN. AWAITING FURTHER ORDERS. WILL CONTINUE TO MONITOR.
[2024-08-03 12:15] VITALS: BP 121/77; PULSE 58; RESP 18; TEMP 36.7; O2SAT 98
--- NOTE | 2024-08-05 12:30 | PC.NURSE ---
urine culture reviewed, no growth
== END 2024-08-03 12:15 | disposition home or self-care (01) ==
PROVIDERS: Emergency Provider Internal Medicine Critical Care Medicine; PCP Family Medicine
DX: N39.0 Urinary tract infection, site not specified (principal); K21.9 Gastro-esophageal reflux disease without esophagitis
CPT/HCPCS: 36415; 74177; 80053; 81001; 83605; 83690; 85025; 85610; 87086; 96361; 96374; 96375; 99284; A9270; J1171; J2405; J7120; Q9967

== ENCOUNTER 2024-08-04 12:19 | Outpatient (CLI) | payer OTHER, SELFPAY ==
[2024-08-04 12:36] LABS: Add Urine Microscopic? YES; Appearance Urine Clear (Clear); Bilirubin Urine 1+ (Negative); Blood Urine Trace-intact (Negative); Color Urine Light Yellow (Yellow); Glucose Urine UA Negative (Negative); Ketones Urine 1+ (Negative); Leukocyte Esterase Ur Negative (Negative); Nitrate Urine Negative (Negative); Protein Urine Negative (Negative); Specific Grav Ur >= 1.030 (1.010-1.020); Urobilinogen Urine 0.2 mg/dL (0.2-1.0)
[2024-08-04 12:37] LABS: Hematocrit 47.1 % (35.0-49.0); Hemoglobin 15.6 g/dL (12.0-15.0); Mean Corpuscular HGB Conc 33.1 g/dL (32-36); Mean Corpuscular Hemoglobin 28.9 pg (27.0-31.0); Mean Corpuscular Volume 87.2 fL (78.0-102.0); Mean Platelet Volume 10.9 fl (9.2-11.8); Platelet Count Result 330 K/mm3 (150-420); Red Cell Distribution Width 14.6 % (11.6-14.4); White Blood Count 8.7 K/mm3 (4.8-10.8)
[2024-08-04 12:43] LABS: RBC Urine None seen /hpf (0-2); WBC Urine None seen /hpf (0-3)
[2024-08-04 12:44] LABS: Bacteria Urine 1+ /hpf; Squamous Epithelial Cell Urine Moderate /hpf (Few)
[2024-08-04 12:48] LABS: Band Neutrophils Percent 0 % (0-6); Lymphocytes Absolute Manual 1.56 K/mm3 (1.1-4.5); Lymphocytes Percent Manual 18 % (18-44); Monocytes Absolute Manual 0.17 K/mm3 (0.1-0.90); Monocytes Percent Manual 2 % (3-9); Neutrophils Absolute Manual 6.96 K/mm3 (1.7-7.2); Neutrophils Percent Manual 80 % (46-73); Platelet Estimate Adequate (Adequate); Total Cells Counted 100
[2024-08-04 13:15] LABS: Alanine Aminotransferase 168 U/L (14-59); Albumin Level 3.8 g/dL (3.4-5.0); Alkaline Phosphatase 198 U/L (46-116); Amylase 39 U/L (25-115); Anion Gap 15 mmol/L (4-12); Aspartate Amino Transferase 91 U/L (15-37); Bilirubin,Total 0.7 mg/dL (0.00-1.00); Blood Urea Nitrogen 8 mg/dL (7-18); Calcium 9.6 mg/dL (8.5-10.1); Carbon Dioxide 23 mmol/L (21-32); Chloride 100 mmol/L (98-108); Estimated Glomerular Filt Rate > 60; Glucose 130 mg/dL (70-99); Lipase 34 U/L (16-77); Osmolality Calculated 286 mOsm/kg (285-295); Potassium 3.9 mmol/L (3.5-5.1); Sodium 138 mmol/L (136-145)
== END 2024-08-04 12:20 | disposition home or self-care (01) ==
LOC: CHSLAB 12:21
PROVIDERS: PCP Family Medicine; Visit Provider Family Medicine
DX: R10.9 Unspecified abdominal pain (principal); M54.16 Radiculopathy, lumbar region; M43.06 Spondylolysis, lumbar region
CPT/HCPCS: 36415; 72100; 80053; 81001; 82150; 83690; 85025

== ENCOUNTER 2024-08-08 06:53 | Day surgery (SDC) | payer OTHER, SELFPAY ==
[2024-07-21 08:18] VITALS: BMI 30.7
--- NOTE | 2024-08-08 07:00 | WPDANESEPPF ---
Anes - Initial Pre Proc Eval Procedure: Operation Date: 08/08/24 09:00 Proposed Procedures p Esophagogastroduodenoscopy - Elfego Tello DO Date/Time: 08/08/24 07:00 Surgeon: Elfego Tello DO Pre Op Diagnosis: Gerd Patient Data Age: 58 Gender: F Height: 1.78 m Weight: 97 kg Allergies Allergy/AdvReac Type Severity Reaction Status Date / Time No Known Allergies Allergy Mild Verified 08/03/24 08:35 Home Medications ?Medication ?Instructions ?Recorded ?Confirmed ?Type escitalopram oxalate 10 mg tablet 10 mg PO DAILY 07/21/24 07/21/24 History esomeprazole magnesium 40 mg 40 mg PO BID 07/21/24 07/21/24 History capsule,delayed release mirabegron 25 mg tablet,extended 25 mg PO DAILY 07/21/24 07/21/24 History release 24 hr oxybutynin chloride 15 mg 15 mg PO DAILY 07/21/24 07/21/24 History tablet,extended release 24 hr topiramate 25 mg tablet 25 mg PO Q12H 07/21/24 07/21/24 History sulfamethoxazole 800 1 tablet PO Q12H #10 tabs 08/03/24 Rx mg-trimethoprim 160 mg tablet (Bactrim DS) Patient hx anesthesia problems: none Family hx anesthesia problems: none Results Review: All pre-operative results and documents have been reviewed as part of the pre-operative evaluation. [facility] Past Medical History Medical History (Updated 08/08/24 @ 07:01 by Chente Cardenas DO) GERD (gastroesophageal reflux disease) Anxiety Surgical History Surgical History History of bladder suspension procedure S/P cholecystectomy Social History Social History Smoking status: Never smoker Alcohol intake: former Substance use: never Substance use type: marijuana Other substance usage details: took CBD pills recently to help her sleep Living arrangements: with family Gender identity (if verbalized by the patient): Female Spiritual care concerns: No Anes - Eval Final PreProcedure Day of Procedure 08/08/24 07:00 Patient weight: obese Heart: regular rate and rhythm Lungs: clear to auscultation Airway: Mallampati scale class II Neurological: alert and oriented Last oral intake: >/= 8 hours ASA classification: II Emergent: no Anesthetic plan: proceed Anesthesia type and monitoring: general GIVS and standard monitoring Results Review: All pre-operative results and documents have been reviewed as part of the pre-operative evaluation. Informed Consent: The patient's anesthetic plan and its attendant risks and benefits were discussed with the patient/family/POA. Questions were solicited and answers provided to the satisfaction of the patient/family/POA.
[2024-08-08 07:55] VITALS: BP 134/84; PULSE 88; RESP 16; TEMP 36.8; O2SAT 100
--- NOTE | 2024-08-08 08:44 | PM.IMHP ---
H&P: HPI History of Present Illness Date/Time: 08/08/24 08:44 Chief Complaint: GERD Narrative: this is a 58-year-old woman who presents for upper endoscopy. She has a longstanding history of acid reflux and epigastric pain. She has never had a EGD before. she denies any hematemesis or melena. Review of Systems Review of Systems: All systems reviewed & are unremarkable except as noted in HPI and below Constitutional: Constitutional: Denies chills, Denies fever(s), Denies headache(s) and Denies weight loss Eyes: Eyes: Denies change in vision ENT: Denies dizziness, Denies headache(s), Denies neck mass and Denies throat swelling Cardiovascular: Cardiovascular: Denies chest pain, Denies lightheadedness and Denies dyspnea Respiratory: Respiratory: Denies cough, Denies dyspnea and Denies wheezing Gastrointestinal: Gastrointestinal: Denies abdominal pain, Denies change in bowel habits, Denies nausea and Denies vomiting Genitourinary: Genitourinary: Denies hematuria and Denies dysuria Musculoskeletal: Musculoskeletal: Reports as per HPI Integumentary/Breasts: Skin/Breast: Reports as per HPI Neurologic: Denies dizziness and Denies headache(s) Allergic/Immunologic: Allergic/Immunologic: Denies throat swelling and Denies wheezing [facility] Past Medical History Medical History (Updated 08/08/24 @ 08:45 by Elfego Tello DO) GERD (gastroesophageal reflux disease) Anxiety Surgical History Surgical History History of bladder suspension procedure S/P cholecystectomy Social History Social History Smoking status: Never smoker Alcohol intake: former Substance use: never Substance use type: marijuana Other substance usage details: took CBD pills recently to help her sleep Living arrangements: with family Gender identity (if verbalized by the patient): Female Spiritual care concerns: No Meds Home Medications and Allergies Home Medications ?Medication ?Instructions ?Recorded ?Confirmed ?Type escitalopram oxalate 10 mg tablet 10 mg PO DAILY 07/21/24 07/21/24 History esomeprazole magnesium 40 mg 40 mg PO BID 07/21/24 07/21/24 History capsule,delayed release mirabegron 25 mg tablet,extended 25 mg PO DAILY 07/21/24 07/21/24 History release 24 hr oxybutynin chloride 15 mg 15 mg PO DAILY 07/21/24 07/21/24 History tablet,extended release 24 hr topiramate 25 mg tablet 25 mg PO Q12H 07/21/24 07/21/24 History sulfamethoxazole 800 1 tablet PO Q12H #10 tabs 08/03/24 Rx mg-trimethoprim 160 mg tablet (Bactrim DS) Allergies Allergy/AdvReac Type Severity Reaction Status Date / Time No Known Allergies Allergy Mild Verified 08/03/24 08:35 Vital Signs Vital Signs - 24 hr 08/08/24 07:55 Temperature 98.3 F Pulse Rate 88 Respiratory Rate 16 Blood Pressure 134/84 Pulse Oximetry 100 Oxygen Delivery Room Air Exam Const: General: no acute distress and alert Orientation/consciousness: patient oriented x3 HENMT: Head: normocephalic and atraumatic Ears: hearing grossly normal bilaterally Face/Nose/Sinus: Normal nares present Mouth: Yes Normal oral and palatal mucosa present Eyes: Periorbital: periorbital findings normal Sclera: sclerae normal EOM: EOMs intact bilaterally Neck: Neck: normal visual inspection, no lymphadenopathy and trachea midline Chest: Chest palpation & inspection: normal inspection of the chest Resp: Effort & Inspection: normal respiratory effort Auscultation: clear to auscultation bilaterally Cardio: Jugular venous distension: no JVD Rate: regular rate Rhythm: regular rhythm Heart sounds: S1 normal heart sound present and S2 normal heart sound present Peripheral pulses: Peripheral pulses 2+ throughout GI: Inspection: normal to inspection GI Palp: Yes Soft to palpation, No Tenderness to palpation present (GI), No Guarding due to palpation present (GI) and No Rebound tenderness present Percussion: Yes normal to percussion Auscultation: normal bowel sounds : General: Yes no CVA tenderness Back/Spine/Pelvis: Back: no CVA tenderness Neuro: General: patient oriented x3, no focal motor deficits and CN's II-XI intact bilaterally Cognition (Neuro): normal cognition Speech: normal speech Motor exam (neuro): 5/5 motor strength present throughout Extrem: General: capillary refill normal and no clubbing, cyanosis or edema Assessment and Plan Assessment and plan (1) GERD (gastroesophageal reflux disease): Code(s): K21.9 - Gastro-esophageal reflux disease without esophagitis Status: Acute Assessment and Plan: I have recommended EGD. I have discussed the procedure, risks, benefits, and alternatives. Questions were answered. Patient is agreeable to proceed.
[2024-08-08 09:09] VITALS: BP 115/91; PULSE 73; RESP 16; O2SAT 98
[2024-08-08] MEDS: LACTATED RINGERS 1,000 ML 150 ML IV CONT (09:11)
--- NOTE | 2024-08-08 09:14 | WPDANESPN ---
Anes - Prog Note Post-Op Date/Time: 08/08/24 09:14 Cardiovascular status: normal Respiratory status: normal Airway patency: baseline Mental status: baseline Post-Op hydration status: normal Vital Signs: Last Vital Signs Temp 36.8 C 08/08/24 07:55 Pulse 88 08/08/24 07:55 Resp 16 08/08/24 07:55 BP 134/84 08/08/24 07:55 Pulse Ox 100 08/08/24 07:55 O2 Del Method Room Air 08/08/24 07:55 Pain Score (VAS): 0 Post-procedural complaints: none Patient Feedback: Patient satisfied with anesthetic care. Other Findings: Patient vital signs back to baseline. Patient denies nausea and vomiting. Patient's pain under control. Patient OK for discharge.
[2024-08-08 09:19] VITALS: BP 123/81; PULSE 73; RESP 15; O2SAT 100
[2024-08-08 09:30] VITALS: BP 130/77; O2SAT 99
== END 2024-08-08 09:46 | disposition home or self-care (01) ==
PROVIDERS: PCP Family Medicine; Visit Provider Surgery
PROC: 0DJ08ZZ Inspection of Upper Intestinal Tract, Via Natural or Artificial Opening Endoscopic (ICD-10-PCS; CPT 43239; principal; 2024-08-08 09:00)
DX: K21.00 Gastro-esophageal reflux disease with esophagitis, without bleeding (principal); K29.00 Acute gastritis without bleeding
CPT/HCPCS: 43239

== ENCOUNTER 2024-08-08 07:19 | Outpatient (NON) | payer OTHER, SELFPAY | END 2024-08-08 07:20 | disposition home or self-care (01) | PROVIDERS: PCP Family Medicine; Visit Provider Surgery | DX: K21.9 Gastro-esophageal reflux disease without esophagitis (principal) | CPT/HCPCS: 88305 ==

== ENCOUNTER 2025-04-19 14:55 | Outpatient (CLI) | payer OTHER, SELFPAY ==
--- NOTE | ~2025-04-19 | XR_ITS ---
EXAMINATION: XR toe 2nd RT min 2V, 04/19/2025 15:10 INVENTORY TECHNICIAN HISTORY: PAIN IN R TOE COMPARISON: No comparisons available. Findings: No acute fracture or malalignment. No significant degenerative changes. Soft tissues unremarkable. Impression: No acute fracture or malalignment. Reviewed, dictated and finalized at location P. NTORY TECHNICIAN Impression: No acute fracture or malalignment.
[2025-04-19 15:08] LABS: Add Urine Microscopic? YES; Appearance Urine Clear (Clear); Glucose Urine UA Negative (Negative); Leukocyte Esterase Ur 1+ (Negative); Nitrate Urine Negative (Negative); Specific Grav Ur >= 1.030 (1.010-1.020)
[2025-04-19 15:09] LABS: Hematocrit 44.2 % (35.0-49.0); Hemoglobin 14.2 g/dL (12.0-15.0); Immature Granulocyte Percent A 0.2 % (0.0-0.0); Lymphocytes Absolute Auto 2.32 K/mm3 (1.10-4.50); Mean Corpuscular HGB Conc 32.1 g/dL (32-36); Mean Corpuscular Hemoglobin 28.9 pg (27.0-31.0); Mean Corpuscular Volume 89.8 fL (78.0-102.0); Nucleated Red Blood Cells Absolute Auto 0.00 K/mm3 (0.00-0.00); Nucleated Red Blood Cells Perc 0.0 % (0-0.0); Platelet Count Result 295 K/mm3 (150-420); Red Blood Count 4.92 M/mm3 (4.20-5.40); White Blood Count 6.3 K/mm3 (4.8-10.8)
[2025-04-19 15:25] LABS: Alanine Aminotransferase 46 U/L (6-35); Albumin Level 4.3 g/dL (3.5-5.1); Alkaline Phosphatase 112 U/L (38-126); Amylase 54 U/L (30-110); Anion Gap 5 mmol/L (4-12); Aspartate Amino Transferase 58 U/L (14-36); Blood Urea Nitrogen 13 mg/dL (7-17); Calcium 9.3 mg/dL (8.4-10.2); Carbon Dioxide 30 mmol/L (22-30); Chloride 110 mmol/L (98-107); Estimated Glomerular Filt Rate > 60; Glucose 95 mg/dL (65-110); Lipase 72 U/L (23-300); Osmolality Calculated 300 mOsm/kg (285-295); Potassium 3.9 mmol/L (3.4-5.0); Sodium 145 mmol/L (137-145); Total Protein 7.5 g/dL (6.3-8.2); Uric Acid 3.6 mg/dL (2.5-7.5)
--- OUTSIDE RECORDS SUMMARY | 2025-04-19 15:51 | XMS_ITS | Clinical Summary ---
Author Organization [facility] [email or web address] Address [address] [place] [address] Care Team Providers Care It Support Consultant Name Role Phone Unavailable Primary Care Provider Unavailabl e Source Comments [facility] [email or web address],non-owned Affiliates and Associated Physician Practices is amultiple site organization consisting of ambulatory clinics and hospital sitesin [place], [place], [place] and [place]. This disclosure is being madepursuant to the Care Everywhere program and may not contain all information available regarding this patient. Last updated 18.[facility] [email or web address] Allergies No known active allergies Medications * Be aware that medications may not be up to date on this document. Alwaysverify current medications with the patient. meloxicam (MOBIC) 15 MG tablet 2 Active oxybutynin CR 24hr (DITROPAN-XL) 10 MG tablet Take 10 mg by mouth once daily 2 Active cyclobenzaprine (FLEXERIL) 10 MG tablet Take 1 (one) tablet by mouth 3 times daily 45 tablet 1 2 Active butalbital-acetami nophen-caffeine (FIORICET) 50-325-40 MG tablet Take 1 (one) tablet by mouth every 4 hours as needed for Headache 20 tablet 2 Active gabapentin (NEURONTIN) 300 MG capsuleIndications :Lumbar radiculopathy Take 1 (one) capsule by mouth 3 times daily 90 capsule 2 Active Active Problems Problem Noted Date Diagnosed [...] money to get more. Never true 11/21/2021 Comments Unknown Sex and Gender Information Value Date Recorded Sex Assigned at Female 09/26/2021 2:13 PM CDT Legal Sex Female 2:55 PM CDT Gender Identity Female 09/26/2021 2:13 [...] 2:19 PM CDT Height 180.3 cm (5' 11) 01/07/2022 2:19 PM CDT Body Mass Index 31.1 01/07/2022 2:19 PM CDT Plan of Treatment Health Maintenance Due Date Last Done Comments COLOGCALEB (AGES 45-75) - COL ON CA SCREENING 1966 COLON MONITORING 1966 COLONOSCOPY - COLON CA SCREENING 1966 CT COLONOGRAPHY - COLON CA SCREENING 1966 Colorectal Cancer Screening 1966 FIT - COLON CA SCREENING 1966 FLEX SIG - COLON CA SCREENING 1966 LIPID TESTING 1966 MAMMOGRAM 1966 HIV SCREENING 1981 HEPATITIS C SCREENING 12/02/1984 DTAP/TDAP/TD VACCINES (1 - Tdap) 1985 HEPATITIS B VACCINE (1 of 3 - 19+ 3-dose series) 1985 PAP SMEAR 12/08/1987 PNEUMOCOCCAL VACCINE 50+ (1 of 1 - PCV) 2016 ZOSTER VACCINE (1 of 2) 2016 DEPRESSION SCREENING 06/08/2024 SCREENING FOR DIABETES 11/22/2024 2, 11/13/2021 COVID-19 VACCINE (1 - 2023-2 5 season) 2025 INFLUENZA VACCINE (#1) 2025 HIB VACCINE Aged Out No longer eligi ble based on patient's age to complete this topic HPV VACCINE Aged Out No longer eligi ble based on patient's age to complete this topic MENINGOCOCCAL (Group B) VACCINE SHARED DECISION-MAKING Aged Out No longer eligible based on patient's age to complete this topic MENINGOCOCCAL GROUPS A/C/Y/W VACCINE Aged Out No longer eligible b ased on patient's age to complete this topic Medical Devices Implanted Type Area Senior Military Analyst Device Identifier Shelf Expiration Date Model / Serial / Lot Slnt Dura Duraseal Pg Trilysine Amine 5 Implanted:Qty: 1 on 11/20/2021 by Alexander Lorenzo MD at [facility] N/A: Spine Lumbar Integra [employer] Leydi 03/07/2023 [id number] / / [id number] Graft Tissue Drgn + Bvn Clgn Mtrx 2x2in Implanted:Qty: 1 on 11/20/2021 by Alexander Lorenzo MD at [facility] N/A: Spine Lumbar Integra [employer] 09/05/2024 [id number] / / [id number] Procedures Procedure Name Priority Date/Time Associated Diagnosis [...] 70 - 115 mg/dL 11/22/2021 8:15 AM [facility] Calcium 8.7 8.4 - 10.2 mg/dL 11/22/2021 8:15 AM [facility] Anion Gap 12 8 - 18 11/22/2021 8:15 AM [facility] BUN/Creatinine Ratio 12 7 - 23 11/22/2021 8:15 AM [facility] Osmolality Calculated 290 270 - 300 mOsm/kg 11/22/2021 8:15 AM [facility] eGFR by CKD-EPI >90 >=90 mL/min/1.7 3 m2 11/22/2021 8:15 AM [facility] Blood BLOOD SPECIMEN / Unknown Lab Venipuncture / Unknown 11/22/2021 7:45 AM CDT 11/22/2021 7:51 AM CDT us Alexander Lorenzo MD LAB - CHEMISTRY ORDERABLES F inal Result [facility] [address] [place] [phone] [phone] from Last 3 Months or Most Recently Relevant to Health Maintenance Insurance ANTHEM ANTHEM SELF PAY NO INSURANCE Member Subscriber Plan / Payer (Ef fective for All Dates) Name:Maryam Luevano Member ID:Not on file Relation to Subscriber:Not on file Name:MARYAM LUEVANO Subscriber ID:Not on file (Home) Address: [address] [place] [id number] Payer ID:Not on file Group ID:Not on file Type:Self Pay Address: [place], [place] Advance Directives * Full Code (Latest Code Status on File) Date Activated Date Inactivated Comments 11/20/2021 4:34 PM 11/22/2021 3:37 PM
--- OUTSIDE RECORDS SUMMARY | 2025-04-19 15:51 | XMS_ITS | Data Portability ---
Author Organization [facility] Address [address] [place] [address] Assessment No assessment recorded. Plan of Treatment Reminders Order Date Submit Date Provider Last Modified By Organization Details Last Modified Time Details Appointments None record ed. Lab HbA1c (hemog lobin A1c), blood 2023 [facility], [address] [place] [address], [place] [address], [place], [address], 11:19:10 lipid panel, serum 2023 [facility], [address] [place] [address], [place] [address], [place], [address], 11:19:04 CBC w/ auto diff 2023 [facility], [address] [place] [address], [place] [address], [place], [address], 11:19:11 vitami n D, 25-hyd rubin, total, serum 2023 [facility], [address] [place] [address], [place] [address], [place], [address], 11:19:12 TSH, ultra- sensit isidro, serum 2023 [facility], [address] [place] [address], [address], [place], [address], 11:19:07 CMP, serum or plasma 2023 [facility], [address], [address], [place], [address], 11:19:05 iron + total iron-b inding capaci ty (TIBC) , serum 2023 [facility], [address], [address], [place], [address], 11:19:08 Referral urogyn ecolog ist referr al 2023 [facility], [address], [address], [place], [address], 10:10:45 Procedures None record ed. Surgeries None record ed. Imaging None record ed. Medication Orders Ozempi c 0.25 mg or 0.5 mg (2 mg/1.5 mL) subcut aneous pen inject or 2023 [facility] TechnologiesMar[facility] HospitalB[id number], [address], [place], [id number], 16:40:03 Myrbet riq 25 mg tablet ,exten ded releas e 2023 024 [facility] EnergyMarina Del [facility] HospitalB[id number], [address], [place], [id number], 14:43:01 Patient TargetsNo targets recorded. Patient Instructions Encounter Date Encounter Id Patient Instructions Last Modified By Organization Details Last Modified Time 03/29/2024 [id number] A healthy lifestyle: care instructions [email or web address] Not available 03/29/2024 12:55:21 Reason for Referral Urogynecologist Referral for Overactive urinary bladder Referring Physician: Larissa Ellsworth, Family Medicine, Encounter Date: 03/29/2024 Results Created Date Observation Date Name Description Value Unit Range Abnormal Flag Note LastModifiedBy Organization Detail LastModifiedTime 03/29/2003/30/2024 LIPID PANEL cholesterol, total 209 mg/dL 100-19 9 above high normal Not Available [facility] ([facility]) [address] [place], [address], 03/30/2024 11:19:04 03/29/2003/30/2024 LIPID PANEL triglyceride s 47 mg/dL 0-149 Not Available [facility] ([facility]) [address] [place], [address], 03/30/2024 11:19:04 03/29/2003/30/2024 LIPID PANEL HDL cholesterol 74 mg/dL >39 Not Available [facility]) [address] [place], [address], 03/30/2024 11:19:04 03/29/2003/30/2024 LIPID PANEL VLDL cholesterol casie 9 mg/dL 5-40 Not Available [facility] ([facility]) [address] [place], [address], 03/30/2024 11:19:04 03/29/2003/30/2024 LIPID PANEL LDL chol calc ([facility]) 126 mg/dL 0-99 above high normal Not Available [facility] ([facility]) [address] [place], [address], 03/30/2024 11:19:04 03/29/2003/30/2024 CMP14 +EGFR glucose 96 mg/dL 70-99 Not Available [facility] ([facility]) [address] [place], [address], 03/30/2024 11:19:05 03/29/2003/30/2024 CMP14 +EGFR BUN 12 mg/dL 6-24 Not Available [facility] ([facility]) [address] [facility], [place], [address], 03/30/2024 11:19:05 03/29/2003/30/2024 CMP14 +EGFR creatinine 0.69 mg/dL 0.57-1 .00 Not Available [facility] ([facility]) [address] [facility], [place], [address], 03/30/2024 11:19:05 03/29/2003/30/2024 CMP14 +EGFR eGFR 101 mL/mi n/1.7 3 >59 Not Available [facility] ([facility]) [address] [facility], [place], [address], 03/30/2024 11:19:05 03/29/2003/30/2024 CMP14 +EGFR BUN/creatini ne ratio 17 -23 Not Available [facility] ([facility]) [address] [facility], [place], [address], 03/30/2024 11:19:05 03/29/2003/30/2024 CMP14 +EGFR sodium 139 mmol/ L 134-14 4 Not Available [facility] ([facility]) [address] [facility], [place], [address], 03/30/2024 11:19:05 03/29/2003/30/2024 CMP14 +EGFR potassium 4.0 mmol/ L 3.5-5. 2 Not Available [facility] ([facility]) [address] [facility] [place], [address], 03/30/2024 11:19:05 03/29/2003/30/2024 CMP14 +EGFR chloride 101 mmol/ L 96-106 Not Available [facility] ([facility]) [address] [place], [address], 03/30/2024 11:19:05 03/29/2003/30/2024 CMP14 +EGFR carbon dioxide, total 25 mmol/ L 20- Not Available [facility] ([facility]) [address] [facility], [place], [address], 03/30/2024 11:19:05 03/29/2003/30/2024 CMP14 +EGFR calcium 9.1 mg/dL 8.7-10 .2 Not Available [facility] ([facility]) [address] [facility], [place], [address], 03/30/2024 11:19:05 03/29/2003/30/2024 CMP14 +EGFR protein, total 7.0 g/dL 6.0-8. 5 Not Available [facility] ([facility]) [address] [facility], [place], [address], 03/30/2024 11:19:05 03/29/2003/30/2024 CMP14 +EGFR albumin 4.1 g/dL 3.8-4. 9 Not Available [facility] ([facility]) [address] [facility], [place], [address], 03/30/2024 11:19:05 03/29/2003/30/2024 CMP14 +EGFR globulin, total 2.9 g/dL 1.5-4. 5 Not Available [facility] ([facility]) [address] [facility], [place], [address], 03/30/2024 11:19:05 03/29/2003/30/2024 CMP14 +EGFR bilirubin, total 0.5 mg/dL 0.0-1. 2 Not Available [facility] ([facility]) [address] [facility], [place], [address], 03/30/2024 11:19:05 03/29/2003/30/2024 CMP14 +EGFR alkaline phosphatase 119 IU/L 44-121 Not Available [facility] ([facility]) [address] [facility], [place], [address], 03/30/2024 11:19:05 03/29/20 24 03/30/2024 CMP14 +EGFR AST (SGOT) 18 IU/L 0-40 Not Available [facility] ([facility]) [address] [place], [address], 03/30/2024 11:19:05 03/29/20 24 03/30/2024 CMP14 +EGFR ALT (SGPT) 14 IU/L 0-32 Not Available [facility] ([facility]) [address] [facility], [place], [address], 03/30/2024 11:19:05 03/29/2003/30/2024 TSH RFX ON ABNOR MAL TO FREE T4 TSH 2.060 uIU/m L 0.450- 4.500 Not Available [facility] ([facility]) [address] [place], [address], 03/30/2024 11:19:07 03/29/2003/30/2024 IRON AND TIBC iron bind.cap.(TI BC) 234 ug/dL 250-45 0 below low normal Not Available [facility] ([facility]) [address] [place], [address], 03/30/2024 11:19:08 03/29/2003/30/2024 IRON AND TIBC UIBC 147 ug/dL 131-42 5 Not Available [facility] ([facility]) [address] [place], [address], 03/30/2024 11:19:08 03/29/2003/30/2024 IRON AND TIBC iron 87 ug/dL 27-159 Not Available [facility] ([facility]) [address] [place], [address], 03/30/2024 11:19:08 03/29/2003/30/2024 IRON AND TIBC iron saturation 37 % 15-55 Not Available [facility] ([facility]) [address] [facility], [place], [address], 03/30/2024 11:19:08 03/29/2003/30/2024 HEMOG LOBIN A1C hemoglobin A1C 5.9 % 4.8-5. 6 above high normal Predi abete s: 5.7 - 6.4 Diabe gabe: >6.4 Glyce ksip contr ol for adult s with diabe gabe: <7.0 Not Available [facility] ([facility]) [address] [facility], [place], [address], 03/30/2024 11:19:09 03/29/2003/30/2024 CBC WITH DIFFE RENTI AL/PL ATELE T WBC 5.2 x10e3 /uL 3.4-10 .8 Not Available [facility] ([facility]) [address] [facility], [place], [address], 03/30/2024 11:19:11 03/29/2003/30/2024 CBC WITH DIFFE RENTI AL/PL ATELE T RBC 4.58 x10e6 /uL 3.77-5 .28 Not Available [facility] ([facility]) [address] [facility], [place], [address], 03/30/2024 11:19:11 03/29/2003/30/2024 CBC WITH DIFFE RENTI AL/PL ATELE T hemoglobin 13.3 g/dL 11.1-1 5.9 Not Available [facility] ([facility]) [address] [place], [address], 03/30/2024 11:19:11 03/29/2003/30/2024 CBC WITH DIFFE RENTI AL/PL ATELE T hematocrit 42.0 % 34.0-4 6.6 Not Available [facility] ([facility]) [address] [facility], [place], [address], 03/30/2024 11:19:11 03/29/2003/30/2024 CBC WITH DIFFE RENTI AL/PL ATELE T MCV 92 fL 79-97 Not Available [facility] ([facility]) [address] [facility], [place], [address], 03/30/2024 11:19:11 03/29/2003/30/2024 CBC WITH DIFFE RENTI AL/PL ATELE T MCH 29.0 pg 26.6-3 3.0 Not Available [facility] ([facility]) [address] [facility], [place], [address], 03/30/2024 11:19:11 03/29/2003/30/2024 CBC WITH DIFFE RENTI AL/PL ATELE T MCHC 31.7 g/dL 31.5-3 5.7 Not Available [facility] ([facility]) [address] [facility], [place], [address], 03/30/2024 11:19:11 03/29/2003/30/2024 CBC WITH DIFFE RENTI AL/PL ATELE T RDW 13.8 % 11.7-1 5.4 Not Available [facility] ([facility]) [address] [facility], [place], [address], 03/30/2024 11:19:11 03/29/2003/30/2024 CBC WITH DIFFE RENTI AL/PL ATELE T platelets 246 x10e3 /uL 150-45 0 Not Available [facility] ([facility]) [address] [facility], [place], [address], 03/30/2024 11:19:11 03/29/2003/30/2024 CBC WITH DIFFE RENTI AL/PL ATELE T neutrophils 54 % notest ab. Not Available [facility] ([facility]) [address] [facility], [place], [address], 03/30/2024 11:19:11 03/29/2003/30/2024 CBC WITH DIFFE RENTI AL/PL ATELE T lymphs 35 % notest ab. Not Available [facility] ([facility]) [address] [facility], [place], [address], 03/30/2024 11:19:11 03/29/2003/30/2024 CBC WITH DIFFE RENTI AL/PL ATELE T monocytes 8 % notest ab. Not Available [facility] ([facility]) [address] [facility], [place], [address], 03/30/2024 11:19:11 03/29/2003/30/2024 CBC WITH DIFFE RENTI AL/PL ATELE T eos 2 % notest ab. Not Available [facility] ([facility]) [address] [facility], [place], [address], 03/30/2024 11:19:11 03/29/2003/30/2024 CBC WITH DIFFE RENTI AL/PL ATELE T basos 1 % notest ab. Not Available [facility] ([facility]) [address] [facility], [place], [address], 03/30/2024 11:19:11 03/29/2003/30/2024 CBC WITH DIFFE RENTI AL/PL ATELE T neutrophils (absolute) 2.9 x10e3 /uL 1.4-7. 0 Not Available [facility] ([facility]) [address] [facility], [place], [address], 03/30/2024 11:19:11 03/29/2003/30/2024 CBC WITH DIFFE RENTI AL/PL ATELE T lymphs (absolute) 1.8 x10e3 /uL 0.7-3. 1 Not Available [facility] ([facility]) [address] [facility], [place], [address], 03/30/2024 11:19:11 03/29/2003/30/2024 CBC WITH DIFFE RENTI AL/PL ATELE T monocytes(ab solute) 0.4 x10e3 /uL 0.1-0. 9 Not Available [facility] ([facility]) [address] [facility], [place], [address], 03/30/2024 11:19:11 03/29/2003/30/2024 CBC WITH DIFFE RENTI AL/PL ATELE T eos (absolute) 0.1 x10e3 /uL 0.0-0. 4 Not Available [facility] ([facility]) [address] [facility], [place], [address], 03/30/2024 11:19:11 03/29/2003/30/2024 CBC WITH DIFFE RENTI AL/PL ATELE T baso (absolute) 0.0 x10e3 /uL 0.0-0. 2 Not Available [facility] ([facility]) [address] [facility], [place], [address], 03/30/2024 11:19:11 03/29/2003/30/2024 CBC WITH DIFFE RENTI AL/PL ATELE T immature granulocytes 0 % notest ab. Not Available [facility] ([facility]) [address] [facility], [place], [address], 03/30/2024 11:19:11 03/29/2003/30/2024 CBC WITH DIFFE RENTI AL/PL ATELE T immature grans (abs) 0.0 x10e3 /uL 0.0-0. 1 Not Available [facility] ([facility]) [address] [facility], [place], [address], 03/30/2024 11:19:11 03/29/2003/30/2024 VITAM IN D, 25-HY DROXY vitamin D, [...] Medic ine). 2010. Dieta ry refer ence intak es for calci um and D. Mac ortiz [place]: The Natio nal [facility] Press . 2. Santos k MF, Zi guadarrama [place], Bisch off-F errar i GUZMAN, et al. Evalu ation , treat ment, and preve ntion of vitam in D defic iency : an Endoc rine Socie ty clini casie pract ice guide line. JCEM. 2010; 96(7) :1911 -30. Not Available [facility] ([facility]) [address], [place], [address], 03/30/2024 11:19:12 Result Notes None recorded. Problems [...] Pulse oximetry Respiratory rate Body temperature Systolic And Diastolic Provider Name and Address Organization Details Last Updated DateTime 4 [address]56.0 5 g 31 kg/m2 177.8 cm 98 % 98 % 18 /min 97.4 [degF] 120/78 mm[Hg] Odalis Carlton MA [facility] 4 12:15:26 Social History Question Answer Notes LastModified by Organizat ion Details LastModified Time Tobacco Smoking Status Never Smoker Odalis Carlton MA null, [facility] 03/29/2024 12:13:58 What Was The Date Of [...] Diagnosis SNOMED-CT Code Diagnosis ICD10 Code Diagnosis IMO Codes Diagnosis Note [id number] MD Felipe Bae [facility] [address] [place] [address] 03/29/2024 11:55:32 03/30/2024 11:21:36 Body mass index 30+ - obesity 997009209 Z68.30 Obesity 609937574 E66.9 labs ordered Overactive urinary bladder 362482039 N32.81 surgery 20 years agostill having incontinen ce, worse at night timeno relief with oxybutnin, will d/c and trial with myrbetriq 25 q hsreferral to urogynecol ogistfollo w up in 1month Health Concerns Section Related Observation LastModified by Organization Detai ls LastModified Time None Recorded Concern Status LastModified by Organization Details LastModified Time None Recorded Advance Directives Directive None Recorded Payers Insurance Date Sequence Insurance Name Policy Number Policy Ahuja Covered Member ID Ahuja Member ID Guarantor Name 05/17/2024 1 [facility] - [employer] CHOICE POS II (POS) Johnny Luevano [id number] Jessica Luevano Notes Date Note Type Note Provider Name and Address Organization Details Recorded Time 024 text/ht ml Urinary FrequencyReported by PatientHPIFor associated symptoms, patient reportsdribblingandincontinencebut reportsno abdominal pain,no back pain,no chills,no constipation,no diarrhea,no pain with urination,normal emptying of bladder,no blood in the urine,no hesitancy,normal libido,no nausea,no vomiting,no nocturia,no urine odor,no straining,no fever,no feelings of urgency, andno urge incontinence. For quality, patient reportssymptoms worse in the evening. For severity, patient reportsmoderate.history of surgery x 20years ago, has worked in the past, but incontinence has returned x 2 years agono relief with oxybutynin ObesityReported by PatientHPIFor co-morbidities, patient reportsoverweight/obese. For lifestyle changes, patient reportsnot losing weight. For nutrition, patient reportsdoesn't follow any kind of diet plan. For physical activity, patient reportsno exercise. For context, patient reportsno inhaled steroidsandno oral steroids. For associated symptoms, patient reportsno depression. For medication education, patient reportsunderstands potential side effects,understands administration, andunderstands role of diet as primary therapy. Larissa Ellsworth PA-C Attn: Accounting ,[address] [place], [address] , [facility] 03/29/2024 14:58:26 OBGyn Episode No OBEpisode recorded.
--- OUTSIDE RECORDS SUMMARY | 2025-04-19 15:51 | XMS_ITS | Clinical Summary ---
Author Organization [facility] [address] Address [address] [place] [address] Phone Care Team Providers Care Forest Officer Name Role Phone Familia Pacheco MD Primary [...] 24 hr tabletIndications :Urge incontinence of urine TAKE ONE TABLET BY MOUTH EVERY DAY 90 tablet 5 Active Active Problems Problem Noted Date Diagnosed [...] on file Legal Sex Female 9:15 AM [employer]ACHINE [employer] Gender Identity Not on file Sexual Orientation [...] PM CDT Pulse 79 08/02/2021 2:21 PM MACHINE [employer] Temperature 36.3 C (97.3 F) 10/08/2020 9:51 AM CDT Respiratory Rate - - Oxygen Saturation - - Inhaled Oxygen Concentration - - Weight 99.8 kg (220 lb) 04/08/2024 1:57 PM CDT Height 175.3 cm (5' 9) 04/08/2024 1:57 PM CDT Body Mass Index 32.49 04/08/2024 1:57 PM CDT Plan of Treatment Health Maintenance Due Date Last Done Comments Colon Cancer Screening-Colonoscopy 1966 Depression Screening 1966 Hepatitis C Screening 1966 Hepatitis B Screening 1984 Zoster Vaccine (1 of 2) 2016 Influenza Vaccine (#1) 2025 03/24/2018 Breast Cancer Screening-Mammogram 04/08/2025 04/08/2024, 04/03/2023, [...] [facility] Comment:Testing performed by : [facility], [address] [place]., [address] HPV HR 18 Not Detected Not Detected [facility] Comment:Testing performed by : [facility], [address] [place]., [address] HPV HR Non 16/18 Not Detected Not [...] this test have been verified by the [facility] Molecular Infectious Disease laboratory. Correlate with separately reported cytology results, as applicable. Interpretive data last revised 22 Testing performed by: [facility], [address] [place]., [address] Endocervical 04/08/2024 3:12 PM CDT 04/11/2024 2:01 PM MACHINE R[employer] CLE[employer]ER Narrative [facility] Cole 04/12/2024 5:06 AM MACHINE RUG CLE[employer]ER Clinical history and diagnosis->DX Z12.4 Testing type->Screening Last menstrual period (date if known)->N/A Menstrual status->Postmenopausal Previous negative PAP?->Yes us Feliz Shen MD LAB BODY FLUIDS AND S TOOLS ORDERABLES Final Result [facility] [address] Department of Laboratories [place], [place] [id number] [facility] * Screening Mammogram Bilateral [...] Most Recently Relevant to Health Maintenance Insurance [facility] [id number] Care Teams Forest Officer Relationship Specialty Start Date End Date Familia Pacheco MD [address] [place] [address] PCP - General Family Medicine 06/26/17
[2025-04-25 13:41] LABS: Bilirubin,Total 0.6 mg/dL (0.2-1.3)
== END 2025-04-19 14:56 | disposition home or self-care (01) ==
LOC: CHSLAB 14:57
PROVIDERS: PCP Family Medicine; Visit Provider Family Medicine
DX: R10.9 Unspecified abdominal pain (principal); M79.674 Pain in right toe(s)
CPT/HCPCS: 36415; 73660; 80053; 81001; 82150; 82248; 83690; 84550; 85025

== ENCOUNTER 2025-04-26 07:15 | Outpatient (CLI) | payer OTHER, SELFPAY ==
--- NOTE | ~2025-04-26 | US_ITS ---
Examination: US abdomen complete Clinical History: ELEVATED BILLIRUBIN . Comparison: CT abdomen pelvis 08/03/2024 Technique: Complete abdominal sonography Findings: Liver: Nodular contour. Normal size. Normal echotexture. No intrahepatic biliary ductal dilatation. Normal hepatopedal flow main portal vein. Common duct: Normal caliber, 4 mm. Gallbladder: Removed. Spleen: Unremarkable. Pancreas: Unremarkable. Kidneys: Unremarkable. Aorta: No aneurysmal dilatation. Retrohepatic IVC: Unremarkable. IMPRESSION: 1. No acute findings. No intrahepatic biliary ductal dilatation. 2. Mild cirrhosis not excluded. Reviewed, dictated and finalized at location R. ERCIAL PILOT
--- OUTSIDE RECORDS SUMMARY | 2025-04-26 07:19 | XMS_ITS | Clinical Summary ---
Author Organization [facility] [address] Address [address] [place] [address] Phone Care Team Providers Care Gear Machine Operator General Name Role Phone Familia Pacheco MD Primary [...] on file Legal Sex Female 9:15 AM [employer] Gender Identity Not on file Sexual Orientation [...] PM CDT Pulse 79 08/02/2021 2:21 PM [employer] Temperature 36.3 C (97.3 F) 10/08/2020 9:51 [...] HPV HR 16 Not Detected Not Detected [facility] Comment:Testing performed by : [facility], [address] [place]., [address] HPV HR 18 Not Detected Not Detected [facility] Comment:Testing performed by : [facility], [address] [facility] [place]., [address] HPV HR Non 16/18 Not Detected Not [...] this test have been verified by the [facility] Molecular Infectious Disease laboratory. Correlate with separately reported cytology results, as applicable. Interpretive data last revised 22 Testing performed by: [facility], [address] [place]., [address] Endocervical 04/08/2024 3:12 PM CDT 04/11/2024 2:01 PM [employer] Narrative [facility] Cole 04/12/2024 5:06 AM [employer] Clinical history and diagnosis->DX Z12.4 Testing type->Screening Last menstrual period (date if known)->N/A Menstrual status->Postmenopausal Previous negative PAP?->Yes us Feliz Shen MD LAB BODY FLUIDS AND S TOOLS ORDERABLES Final Result [facility] [id number] Department of Laboratories [place], [place] [id number] [facility] * Screening Mammogram Bilateral W Kwan [...] Relevant to Health Maintenance Insurance [facility] [place] [id number] Care Teams Gear Machine Operator General Relationship Specialty Start Date End Date Familia Pacheco MD [address] [place] [address] PCP - General Family Medicine 06/26/17
== END 2025-04-26 07:16 | disposition home or self-care (01) ==
PROVIDERS: PCP Family Medicine; Visit Provider Family Medicine
DX: E80.7 Disorder of bilirubin metabolism, unspecified (principal); K74.60 Unspecified cirrhosis of liver
CPT/HCPCS: 76700

== ENCOUNTER 2025-05-17 09:51 | Outpatient (CLI) | payer OTHER, SELFPAY ==
[2025-05-19 19:09] LABS: Hepatitis B Surface Antigen Negative (Negative)
[2025-05-19 20:34] LABS: HAV RESULT Negative (Negative); Hepatitis B Core IgM Result Negative (Negative)
== END 2025-05-17 09:52 | disposition home or self-care (01) ==
PROVIDERS: PCP Family Medicine; Visit Provider Family Medicine
DX: R10.84 Generalized abdominal pain (principal)
CPT/HCPCS: 36415; 80074